=== PATIENT | female | born 1965 | race Caucasian/White ===

== ENCOUNTER → 2020-06-21 08:41 | Outpatient (BNVA) | payer OTHER, SELFPAY | PROVIDERS: Visit Provider Internal Medicine Endocrinology, Diabetes & Metabolism | DX: E66.01 Morbid (severe) obesity due to excess calories (principal); Z68.39 Body mass index [BMI] 39.0-39.9, adult; E65 Localized adiposity | CPT/HCPCS: 99214 ==

== ENCOUNTER 2020-06-28 10:49 | Outpatient (REF) | payer OTHER, SELFPAY ==
--- NOTE | 2020-06-28 11:00 | XR_ITS ---
EXAMINATION: RIGHT WRIST CLINICAL INFORMATION: Right wrist pain COMPARISON: None TECHNIQUE: 4 views right wrist FINDINGS: No bone joint or soft tissue abnormality is seen XR/XR wrist RT w scaphoid IMPRESSION: Negative study
== END 2020-06-28 10:50 | disposition home or self-care (01) ==
LOC: HO.XRAY 10:49
PROVIDERS: PCP Internal Medicine; Visit Provider Internal Medicine
DX: M25.531 Pain in right wrist (principal)
CPT/HCPCS: 73110

== ENCOUNTER 2020-08-23 09:55 | Outpatient (REF) | payer OTHER, SELFPAY ==
[2020-08-26 08:43] LABS: HPV mRNA E6/E7 rflx Not Detected (Not Detected)
== END 2020-08-23 09:56 | disposition home or self-care (01) ==
LOC: HO.LAB 09:55
PROVIDERS: PCP Internal Medicine; Referring Provider Internal Medicine; Visit Provider Obstetrics & Gynecology
DX: Z01.419 Encounter for gynecological examination (general) (routine) without abnormal findings (principal); N95.9 Unspecified menopausal and perimenopausal disorder
CPT/HCPCS: 87624; 87625; 88142

== ENCOUNTER 2020-11-21 09:07 | Outpatient (REF) | payer OTHER, SELFPAY ==
[2020-11-21 09:53] LABS: MANUAL DIFF FLAG NO
[2020-11-21 09:56] LABS: Basophils Percent Auto 0.2 % (0-2); Eosinophils Absolute Auto 0.3 X10*3/uL (0.0-0.4); Eosinophils Percent Auto 2.6 % (0-4); Hematocrit 37.1 % (37-47); Hemoglobin 11.5 g/dl (12.0-16.0); Imm Gran Abs Auto 0.05 X10*3/uL (0.00-0.03); Imm Gran Pct Auto 0.4 % (0.0-0.4); Lymphocytes Absolute Auto 3.2 X10*3/uL (1.2-4.9); Lymphocytes Percent Auto 24.8 % (20-40); Mean Corpuscular Hemoglobin 27.4 pg (27.0-33.0); Mean Corpuscular Volume 88.5 fL (80-98); Mean Platelet Volume 9.2 fL (9.4-12.3); Monocytes Absolute Auto 0.7 X10*3/uL (0.1-1.2); Monocytes Percent Auto 5.3 % (2-11); Neutrophils Absolute Auto 8.6 X10*3/uL (2.0-8.3); Neutrophils Percent Auto 66.7 % (45-73); Platelet Count 459 X10*3/uL (160-400); Red Blood Count 4.19 X10*6/uL (4.20-5.50); Red Cell Distribution Width 14.8 % (11.0-16.0); White Blood Count 12.9 X10*3/uL (4.8-10.8)
[2020-11-21 10:16] LABS: Lithium 0.65 mmol/L (0.60-1.20)
[2020-11-21 10:24] LABS: Alanine Aminotransferase 25 U/L (0-31); Albumin Level 4.2 g/dL (3.5-5.0); Alkaline Phosphatase 105 U/L (39-117); Anion Gap 14 (12-20); Aspartate Amino Transferase 21 U/L (5-31); Bilirubin Total 0.3 mg/dL (0.0-1.0); Blood Urea Nitrogen 11 mg/dL (9-16); Calcium 9.4 mg/dL (8.4-10.2); Carbon Dioxide 27 mmol/L (22-29); Chloride 104 mmol/L (96-108); Cholesterol 193 mg/dL; Estimated Glomerular Filt Rate > 60; Glucose Fasting 138 mg/dL (60-99); HDL Cholesterol 49 mg/dL; LDL Cholesterol Calculated 113 mg/dl; Potassium 4.6 mmol/L (3.3-5.1); Sodium 140 mmol/L (135-145); Total Protein 7.2 g/dL (6.5-8.0); Triglycerides 158 mg/dL
[2020-11-21 10:43] LABS: TSH reflex Free T4 2.06 uIU/mL (0.32-4.0)
[2020-11-22 16:46] LABS: Adrenocorticotropic Hormone 20 pg/mL (6-50)
[2020-11-30 22:18] LABS: Dexamethasone <20 ng/dL
== END 2020-11-21 09:08 | disposition home or self-care (01) ==
LOC: HO.LAB 09:07
PROVIDERS: Absent Provider Internal Medicine Endocrinology, Diabetes & Metabolism; PCP Internal Medicine; Visit Provider Internal Medicine
DX: E78.5 Hyperlipidemia, unspecified (principal); R73.02 Impaired glucose tolerance (oral); E66.01 Morbid (severe) obesity due to excess calories; E03.9 Hypothyroidism, unspecified; D64.9 Anemia, unspecified; E66.9 Obesity, unspecified; F31.9 Bipolar disorder, unspecified
CPT/HCPCS: 36415; 80053; 80061; 80178; 80299; 82024; 84443; 85025

== ENCOUNTER 2020-12-02 09:53 | Outpatient (REF) | payer OTHER, SELFPAY ==
[2020-12-07 02:31] LABS: HPV mRNA E6/E7 rflx Not Detected (Not Detected)
== END 2020-12-02 09:54 | disposition home or self-care (01) ==
LOC: HO.LAB 09:53
PROVIDERS: PCP Internal Medicine; Visit Provider Obstetrics & Gynecology
DX: R87.615 Unsatisfactory cytologic smear of cervix (principal)
CPT/HCPCS: 87624; 88142; 99212

== ENCOUNTER 2020-12-14 08:17 | Outpatient (REF) | payer OTHER, SELFPAY ==
[2020-12-14 11:03] LABS: Creatinine, mg/dL 23.39
[2020-12-14 13:20] LABS: Creatinine, 24Hr Urine 1.1 G/Day (1.0-2.0); Total Volume 24 Hour Urine 4775 mL
[2020-12-15 15:37] LABS: Adrenocorticotropic Hormone 6 pg/mL (6-50)
[2020-12-20 10:32] LABS: Cortisol Free, 24 Hr Urine 4.8 mcg/24 h (4.0-50.0); Creatinine, 24 Hr Urine 1.21 g/24 h (0.50-2.15); Total Volume, 24 Hr Urine 4775 mL
[2020-12-21 12:07] LABS: Dexamethasone 346 ng/dL
== END 2020-12-14 08:18 | disposition home or self-care (01) ==
LOC: HO.LAB 08:17
PROVIDERS: PCP Internal Medicine; Visit Provider Internal Medicine Endocrinology, Diabetes & Metabolism
DX: E65 Localized adiposity (principal); E66.01 Morbid (severe) obesity due to excess calories
CPT/HCPCS: 36415; 80299; 82024; 82530; 82533; 82570

== ENCOUNTER 2020-12-18 23:00 | Outpatient (REF) | payer OTHER, SELFPAY ==
[2020-12-23 18:57] LABS: Saliva Cortisol 0.12 mcg/dL
== END 2020-12-18 23:01 | disposition home or self-care (01) ==
LOC: HO.LNP 23:00
PROVIDERS: Visit Provider Internal Medicine Endocrinology, Diabetes & Metabolism
DX: E66.01 Morbid (severe) obesity due to excess calories (principal)
CPT/HCPCS: 82530

== ENCOUNTER → 2020-12-21 09:33 | Outpatient (BNVA) | payer OTHER, SELFPAY | PROVIDERS: PCP Internal Medicine; Visit Provider Internal Medicine Endocrinology, Diabetes & Metabolism | DX: E66.01 Morbid (severe) obesity due to excess calories (principal); E65 Localized adiposity | CPT/HCPCS: 99212 ==

== ENCOUNTER 2021-01-10 23:00 | Outpatient (REF) | payer OTHER, SELFPAY ==
[2021-01-18 15:51] LABS: Saliva Cortisol 0.07 mcg/dL
== END 2021-01-10 23:01 | disposition home or self-care (01) ==
LOC: HO.LNP 23:00
PROVIDERS: Visit Provider Internal Medicine Endocrinology, Diabetes & Metabolism
DX: E65 Localized adiposity (principal)
CPT/HCPCS: 82530

== ENCOUNTER 2021-01-19 09:09 | Outpatient (REF) | payer OTHER, SELFPAY ==
[2021-01-19 09:45] LABS: Glucose Urine UA NEG (NEG); Leukocyte Esterase Urine NEG (NEG); Nitrite Urine NEG (NEG); Urine Blood NEG (NEG); Urine Ketones NEG (NEG); Urine Protein NEG (NEG-TRACE)
[2021-01-19 09:48] LABS: Appearance Urine HAZY; Color Urine YELLOW
[2021-01-19 10:05] LABS: Blood Urea Nitrogen 14 mg/dL (9-16); Estimated Glomerular Filt Rate > 60
[2021-01-19 10:09] LABS: RBC Urine 0 /HPF (0); Squamous Epithelial Cell Urine 2+ /LPF; WBC Urine 0-2 /HPF (0-4)
== END 2021-01-19 09:10 | disposition home or self-care (01) ==
LOC: HO.LAB 09:09
PROVIDERS: PCP Internal Medicine; Visit Provider Internal Medicine
DX: F31.9 Bipolar disorder, unspecified (principal)
CPT/HCPCS: 36415; 81001; 82565; 84520

== ENCOUNTER → 2021-01-24 12:19 | Outpatient (BNVA) | payer OTHER, SELFPAY | PROVIDERS: PCP Internal Medicine; Visit Provider Dietitian, Registered | DX: E66.9 Obesity, unspecified (principal); Z68.37 Body mass index [BMI] 37.0-37.9, adult | CPT/HCPCS: 97802 ==

== ENCOUNTER → 2021-06-06 14:39 | Outpatient (BNVA) | payer OTHER, SELFPAY | PROVIDERS: PCP Internal Medicine; Referring Provider Internal Medicine; Visit Provider Surgery | DX: L73.2 Hidradenitis suppurativa (principal) | CPT/HCPCS: 99212 ==

== ENCOUNTER 2021-06-30 08:49 | Outpatient (REF) | payer OTHER, SELFPAY | END 2021-06-30 08:50 | disposition home or self-care (01) | LOC: HO.LNP 08:49 | PROVIDERS: PCP Internal Medicine; Referring Provider Internal Medicine; Visit Provider Surgery | DX: L02.91 Cutaneous abscess, unspecified (principal); L73.2 Hidradenitis suppurativa | CPT/HCPCS: 10061; 10060; 87071; 87205; 99212 ==

== ENCOUNTER → 2021-07-07 10:04 | Outpatient (BNVA) | payer OTHER, SELFPAY | PROVIDERS: PCP Internal Medicine; Referring Provider Internal Medicine; Visit Provider Surgery | DX: L02.91 Cutaneous abscess, unspecified (principal) | CPT/HCPCS: 99212 ==

== ENCOUNTER 2021-07-13 10:34 | Outpatient (REF) | payer OTHER, SELFPAY ==
[2021-07-13 10:53] LABS: MANUAL DIFF FLAG NO
[2021-07-13 11:42] LABS: Basophils Percent Auto 0.3 % (0-2); Eosinophils Absolute Auto 0.4 X10*3/uL (0.0-0.4); Eosinophils Percent Auto 3.2 % (0-4); Hematocrit 37.1 % (37.0-47.0); Hemoglobin 11.4 g/dl (12.0-16.0); Imm Gran Abs Auto 0.06 X10*3/uL (0.00-0.03); Imm Gran Pct Auto 0.5 % (0.0-0.4); Lymphocytes Absolute Auto 3.3 X10*3/uL (1.2-4.9); Lymphocytes Percent Auto 29.6 % (20-40); Mean Corpuscular HGB Conc 30.7 g/dl (31.0-35.0); Mean Corpuscular Hemoglobin 26.8 pg (27.0-33.0); Mean Corpuscular Volume 87.3 fL (80.0-98.0); Monocytes Absolute Auto 0.9 X10*3/uL (0.1-1.2); Monocytes Percent Auto 7.7 % (2-11); Neutrophils Absolute Auto 6.5 x10*3/uL (2.0-8.3); Neutrophils Percent Auto 58.7 % (45-73); Platelet Count 375 X10*3/uL (160-400); Red Blood Count 4.25 X10*6/uL (4.20-5.50); Red Cell Distribution Width 15.3 % (11.0-16.0); White Blood Count 11.1 X10*3/uL (4.8-10.8)
[2021-07-13 11:54] LABS: Lithium 0.58 mmol/L (0.60-1.20)
[2021-07-13 12:10] LABS: Alanine Aminotransferase 29 U/L (0-31); Albumin Level 4.1 g/dL (3.5-5.0); Alkaline Phosphatase 103 U/L (39-117); Anion Gap 10 (12-20); Aspartate Amino Transferase 19 U/L (5-31); Bilirubin Total 0.2 mg/dL (0.0-1.0); Blood Urea Nitrogen 7 mg/dL (9-16); Calcium 9.5 mg/dL (8.4-10.2); Carbon Dioxide 28 mmol/L (22-29); Chloride 106 mmol/L (96-108); Cholesterol 141 mg/dL; Estimated Glomerular Filt Rate > 60; Glucose Fasting 112 mg/dL (60-99); HDL Cholesterol 39 mg/dL; LDL Cholesterol Calculated 78 mg/dl; Potassium 4.5 mmol/L (3.3-5.1); Sodium 139 mmol/L (135-145); Total Protein 7.3 g/dL (6.5-8.0); Triglycerides 124 mg/dL
[2021-07-13 12:11] LABS: Thyroid Stimulating Hormone 2.98 uIU/mL (0.32-4.0)
== END 2021-07-13 10:35 | disposition home or self-care (01) ==
LOC: HO.LAB 10:34
PROVIDERS: PCP Internal Medicine; Visit Provider Internal Medicine
DX: E78.5 Hyperlipidemia, unspecified (principal); R73.02 Impaired glucose tolerance (oral); E03.9 Hypothyroidism, unspecified; D64.9 Anemia, unspecified; F31.9 Bipolar disorder, unspecified; Z79.899 Other long term (current) drug therapy
CPT/HCPCS: 36415; 80053; 80061; 80178; 84443; 85025

== ENCOUNTER 2021-11-30 09:41 | Outpatient (REF) | payer OTHER, SELFPAY ==
[2021-11-30 10:19] LABS: MANUAL DIFF FLAG NO
[2021-11-30 10:59] LABS: Basophils Percent Auto 0.3 % (0-2); Eosinophils Absolute Auto 0.3 X10*3/uL (0.0-0.4); Eosinophils Percent Auto 2.8 % (0-4); Hematocrit 39.1 % (37.0-47.0); Hemoglobin 12.1 g/dl (12.0-16.0); Imm Gran Abs Auto 0.04 X10*3/uL (0.00-0.03); Imm Gran Pct Auto 0.3 % (0.0-0.4); Lymphocytes Absolute Auto 3.1 X10*3/uL (1.2-4.9); Lymphocytes Percent Auto 25.5 % (20-40); Mean Corpuscular HGB Conc 30.9 g/dl (31.0-35.0); Mean Corpuscular Hemoglobin 27.3 pg (27.0-33.0); Mean Corpuscular Volume 88.3 fL (80.0-98.0); Mean Platelet Volume 9.9 fL (9.4-12.3); Monocytes Absolute Auto 0.7 X10*3/uL (0.1-1.2); Monocytes Percent Auto 5.5 % (2-11); Neutrophils Absolute Auto 7.9 x10*3/uL (2.0-8.3); Neutrophils Percent Auto 65.6 % (45-73); Platelet Count 508 X10*3/uL (160-400); Red Blood Count 4.43 X10*6/uL (4.20-5.50); Red Cell Distribution Width 15.9 % (11.0-16.0); White Blood Count 12.1 X10*3/uL (4.8-10.8)
[2021-11-30 11:53] LABS: Alanine Aminotransferase 18 U/L (0-31); Albumin Level 4.4 g/dL (3.5-5.0); Alkaline Phosphatase 96 U/L (39-117); Anion Gap 14 (12-20); Aspartate Amino Transferase 13 U/L (5-31); Bilirubin Total 0.5 mg/dL (0.0-1.0); Blood Urea Nitrogen 13 mg/dL (9-16); Calcium 10.4 mg/dL (8.4-10.2); Carbon Dioxide 28 mmol/L (22-29); Chloride 105 mmol/L (96-108); Cholesterol 207 mg/dL; Estimated Glomerular Filt Rate > 60; Glucose Fasting 128 mg/dL (60-99); HDL Cholesterol 48 mg/dL; Iron 70 mcg/dL (30-160); LDL Cholesterol Calculated 131 mg/dl; Percent Iron Saturation 16 % (15-50); Potassium 4.8 mmol/L (3.3-5.1); Sodium 142 mmol/L (135-145); Total Iron Binding Capacity 437 mcg/dL (228-428); Total Protein 7.8 g/dL (6.5-8.0); Triglycerides 144 mg/dL; Unsaturated Iron Binding 367 ug/dL
[2021-12-01 19:06] LABS: DHEA Sulfate 68 mcg/dL (5-167)
[2021-12-05 14:17] LABS: Vitamin D 25-OH, D2 <4 ng/mL; Vitamin D 25-OH, D3 17 ng/mL; Vitamin D 25-OH, Total 17 ng/mL (30-100)
[2021-12-06 11:31] LABS: Dexamethasone <20 ng/dL
[2021-12-06 11:56] LABS: Testosterone, Free 1.3 pg/mL (0.1-6.4); Testosterone, Total 10 ng/dL (2-45)
== END 2021-11-30 09:42 | disposition home or self-care (01) ==
LOC: HO.LAB 09:41
PROVIDERS: Internal Medicine Endocrinology, Diabetes & Metabolism; Absent Provider Internal Medicine; PCP Internal Medicine; Visit Provider Nurse Practitioner Family
DX: E66.9 Obesity, unspecified (principal); E78.5 Hyperlipidemia, unspecified; E03.9 Hypothyroidism, unspecified; E65 Localized adiposity; L65.9 Nonscarring hair loss, unspecified
CPT/HCPCS: 36415; 80053; 80061; 80299; 82306; 82627; 83540; 84402; 84403; 84443; 85025

== ENCOUNTER → 2022-01-12 09:19 | Outpatient (BNVA) | payer OTHER, SELFPAY | PROVIDERS: PCP Internal Medicine; Referring Provider Internal Medicine; Visit Provider Surgery | DX: L02.91 Cutaneous abscess, unspecified (principal); L73.2 Hidradenitis suppurativa | CPT/HCPCS: 10061; 99212 ==

== ENCOUNTER → 2022-01-19 08:56 | Outpatient (BNVA) | payer OTHER, SELFPAY | PROVIDERS: PCP Nurse Practitioner Family; Visit Provider Surgery | DX: Z48.817 Encounter for surgical aftercare following surgery on the skin and subcutaneous tissue (principal); Z87.2 Personal history of diseases of the skin and subcutaneous tissue | CPT/HCPCS: 99212 ==

== ENCOUNTER → 2022-08-29 14:12 | Outpatient (BNVA) | payer OTHER, SELFPAY | PROVIDERS: Visit Provider Advanced Practice Midwife | DX: Z13.89 Encounter for screening for other disorder (principal) ==

== ENCOUNTER 2023-12-04 17:29 | Inpatient (IN) | payer OTHER, SELFPAY ==
--- NOTE | ~2023-12-04 | XR_ITS ---
EXAMINATION: XR CHEST CLINICAL INFORMATION: Upper respiratory tract symptoms COMPARISON: Previous chest x-ray December 2019 TECHNIQUE: Frontal view of the chest was obtained. FINDINGS: The cardiac and mediastinal contours are stable. The lungs are clear. No pleural effusion or pneumothorax. Degenerative changes of the spine. XR/XR chest 1V IMPRESSION: No evidence for acute disease in the chest.
--- OUTSIDE RECORDS SUMMARY | 2023-12-04 17:32 | XMS_ITS | Continuity of Care Document ---
Author Name Unknown Organization [facility] Address [address] [place] [address]- Care Team Providers Care [employer] Name Role Phone Megan HOTBED TRANSFER OPERATOR, Sj Monroe Primary Care Physi mago Encounter [facility] [place] Date(s): 10/13/22 - 02/10/23 [facility] [address] [address] Attending Physician: Mary Perez MD Admitting Physician: Mary Perez MD Allergies, Adverse Reactions, Alerts Substance Reaction Severity Status amoxicillin unknown Persistent Moderate Active azithromycin Active hydrOXYzine Active Haldol drooling tonhue swel ling ? NMS with inc cpk Active Vitamin D3 50k dose Active Seroquel XR Vitamin D allergy Vitamin D allergy Active sulfamethoxazole-trimethoprim rash Active clonazepam RASH Active levofloxacin lip swelling Active Effexor RASH clonazepam RASH Active doxycycline hyclate Active Abilify NMS Active barb rash Persistent Moderate Active Immunizations Given and Recorded Vaccine Date Status Refusal Reason influenza virus vaccine, inactivated 07/14/13 Give n Pneumovax 23 (oldterm) 10/09/12 Given Tet/Diphth/Acel, Pertussis (oldterm) 2 09/03/08 Gi isai Not Given Vaccine Date Status Refusal Reason influenza virus vaccine, inactivated 1 06/16/15 No t Given Patient Refuses pneumococcal 23-valent vaccine 3 06/16/15 Not Give n Patient Refuses 1Admin Note: vis given 2Result Note: glucose 104 3Result Note: glucose 104 Medications amLODIPine 5 mg oral tablet 5 mg, 1, tablet, By Mouth, Daily, # 30 tablet, Refills 0, Maintenance, 05/04/22 8:39:00 EDT, Partial fill upon patient request if the prescription is for a schedule II opioid drug. Start Date: 05/04/22 Status: Ordered Ativan 2 mg oral tablet 1 tablet = 2 mg, By Mouth, 2 times a day, 0 Refills, Maintenance, 09/14/21 22:39:00 EST, Tablet, Partial fill upon patient request if the prescription is for a schedule II opioid drug. Start Date: 09/14/21 Status: Ordered Banophen 50 mg oral capsule 1 capsule = 50 mg, By Mouth, Every 6 hours, 0 Refills, Maintenance, 05/04/22 8:39:00 EDT, Partial fill upon patient request if the prescription is for a schedule II opioid drug. Start Date: 05/04/22 Status: Ordered benzonatate 200 mg oral capsule 1 capsule = 200 mg, By Mouth, 3 times a day, PRN Cough, # 30 capsule, 1 Refills, Maintenance, 09/17/21 16:10:00 EST, Capsule, [id number], Partial fill upon patient request if the prescription is for a schedule II opioid drug., 155, cm... Start Date: 09/17/21 Status: Ordered carvedilol 3.125 mg oral tablet 3.125 mg, 1, tablet, By Mouth, 2 times a day, # 60 tablet, Refills 0, Maintenance, 05/04/22 8:38:00EDT, Partial fill upon patient request if the prescription is for a schedule II opioid drug. Start Date: 05/04/22 Status: Ordered gabapentin 100 mg oral capsule 100 mg, 1, capsule, By Mouth, Daily at bedtime, # 90 capsule, Refills 5, Maintenance, 09/17/21 16:11:00 EST, Partial fill upon patient request if the prescription is for a schedule II opioid drug. Start Date: 09/17/21 Status: Ordered levothyroxine 0.088 mg oral tablet 1 tablet = 88 mcg, By Mouth, Daily, replaces 112mcg dose!, # 30 tablet, 11 Refills, Maintenance, 02/06/16 11:11:15 Start Date: 02/06/16 Status: Ordered lithium 300 mg oral capsule = 450 mg, By Mouth, 2 times a day, 0 Refills, Maintenance, 05/10/15 13:10:22 EDT Start Date: 05/10/15 Status: Ordered lithium 300 mg oral capsule 1 capsule = 300 mg, By Mouth, 2 times a day, 0 Refills, Maintenance, 09/17/21 16:11:00 EST, Capsule, Partial fill upon patient request if the prescription is for a schedule II opioid drug. Start Date: 09/17/21 Status: Ordered LORazepam 2 mg oral tablet TAKE 1 TABLET BY MOUTH TWICE DAILY NEEDED. DO NOT DISPENSE BEFORE THE DUE DATE Start Date: 09/17/21 Status: Ordered metFORMIN 500 mg oral tablet 1 tablet = 500 mg, By Mouth, 2 times a day, # 180 tablet, 0 Refills, Maintenance, 05/04/22 8:34:00 EDT, Tablet, Partial fill upon patient request if the prescription is for a schedule II opioid drug. Start Date: 05/04/22 Status: Ordered mirtazapine 7.5 mg oral tablet TAKE 1 TABLET BY MOUTH AT BEDTIME Start Date: 09/17/21 Status: Ordered Protonix 40 mg oral delayed release tablet 1 tablet = 40 mg, By Mouth, Daily, # 30 tablet, 0 Refills, Maintenance, 09/17/21 16:30:00 EST, EC Tablet, 155, cm, 09/17/21 7:48:00 EST, Height, 84.5, kg, 09/15/21 2:58:00 EST, Dry Weight Start Date: 09/17/21 Status: Ordered Senna 8.6 mg oral tablet 8.6 mg, 1, tablet, By Mouth, Daily at bedtime, Refills 0, Maintenance, 05/04/22 8:39:00 EDT, Partial fill upon patient request if the prescription is for a schedule II opioid drug. Start Date: 05/04/22 Status: Ordered zolpidem 10 mg oral tablet TAKE 1 TABLET BY MOUTH AT BEDTIME Start Date: 01/17/23 Status: Ordered Problem List Condition Confirmation Course Effective Dates Status Health Status Informant Acne vulgaris Confirmed Active Adult-onset obesity, Metabolic Syndrome 1 Confirmed Active Bipolar affective disorder, currently manic, severe, with psychosis Confirmed Active Chronic back pain Confirmed Active Depression, Major, w/ catatonia during exac, ongoing ECT tx's Confirmed Active Diabetes mellitus Confirmed Active Hypertension Confirmed Active Hypothyroidism Confirmed Active Insomnia due to mental disorder Confirmed Active Iron deficiency anemia Confirmed Active Malignant neuroleptic syndrome, On abilify and haldol in 02/01/06 to 04/19/06 Confirmed Active Multiple skin tags Confirmed 06/27/10 Active Neuropathy R>L, s/p EMG at [facility], s/p steroid injection Confirmed Active Obesity Confirmed Active [facility] Electric Organ Assembler Lisbet Serrano [facility] [phone] Confirmed Active Psychophysiologic insomnia Confirmed Active Severe obesity (BMI 35.0-39.9) with comorbidity Confirmed Active Snoring Confirmed Active Thrombocytosis s/p eval by Dr. Silva, observation Confirmed Active 1+ Hx of Gestational Diabetes and strong Family Hx. Social History Social History Type Response Smoking Status Never smoker; Tobacc o user in household: No entered on: 04/22/18 Sex Patient Care team information Care Team Personnel Name: Trinh Rivera RN Position: [facility] AMB Nurse Member Role: Primary Care Nurse Name: Nita Leigh RN Position: [facility] OB RN Member Role: Primary Care Nurse Name: Janie Pandya RN Position: [facility] RN Member Role: Primary Care Nurse Name: Sj Guzman NP Position: Reference Physician Member Role: PCP Address: Address: [address] [place] [place] [address]- Care Team Related Persons Name: CURTIS ALFRED Address: home [address] [place] [id number] Name: SARTHAK ALFRED Address: home [address] [place] [address]
--- OUTSIDE RECORDS SUMMARY | 2023-12-04 17:32 | XMS_ITS | Continuity of Care Document ---
Author Name Unknown Organization [facility] Address [address] [place] [address]- Care Team Providers Care Chrome Worker Name Role Phone Jeff James MD, Yolande Primary Care Physician Encounter [facility] Date(s): 09/14/21 - 10/14/21 [facility] [address], [place] [address] Attending Physician: Ivanna Plata MD Allergies, Adverse Reactions, Alerts Substance Reaction Severity Status amoxicillin unknown Persistent Moderate Active Haldol drooling tonhue swel ling ? NMS with inc cpk Active barb rash Persistent Moderate Active azithromycin Active Seroquel XR Vitamin D allergy Vitamin D allergy Active sulfamethoxazole-trimethoprim rash Active clonazepam RASH Active hydrOXYzine Active levofloxacin lip swelling Active Effexor RASH clonazepam RASH Active doxycycline hyclate Active Abilify NMS Active Vitamin D3 50k dose Active Immunizations Given and Recorded Vaccine Date [...] glucose 104 3Result Note: glucose 104 Medications Ativan 2 mg oral tablet 1 tablet = 2 mg, By Mouth, 2 times a day, 0 Refills, Maintenance, 09/14/21 22:39:00 EST, Tablet, Partial fill upon patient request if the prescription is for a schedule II opioid drug. Start Date: 09/14/21 Status: Ordered benzonatate 200 mg oral capsule 1 capsule = 200 mg, By Mouth, 3 times a day, PRN Cough, # 30 capsule, 1 Refills, Maintenance, 09/17/21 16:10:00 EST, Capsule, [facility] #[id number], Partial fill upon patient request if the prescription is for a schedule II opioid drug., 155, cm... Start Date: 09/17/21 Status: Ordered gabapentin 100 mg oral capsule [...] DUE DATE Start Date: 09/17/21 Status: Ordered mirtazapine 7.5 mg oral tablet TAKE 1 TABLET BY MOUTH AT BEDTIME Start Date: 09/17/21 Status: Ordered Protonix 40 mg oral delayed release tablet 1 tablet = 40 mg, By Mouth, Daily, # 30 tablet, 0 Refills, Maintenance, 09/17/21 16:30:00 EST, EC Tablet, 155, cm, 09/17/21 7:48:00 EST, Height, 84.5, kg, 09/15/21 2:58:00 EST, Dry Weight Start Date: 09/17/21 Status: Ordered Problem List Condition Effective Dates Status Health Status Inform ant Acne vulgaris(Confirmed) Active Adult-onset obesity, Metabol ic Syndrome(Confirmed) 1 Active Bipolar affective disorder, currently manic, severe, with psychosis(Confirmed) Active Chronic back pain(Confirmed) Active Depression, Major, w/ catato juan francisco during ex[facility], ongoing ECT tx's(Confirmed) Active Diabetes mellitus(Confirmed) Active Hypertension(Confirmed) Active Hypothyroidism(Confirmed) Active Iron deficiency anemia(Confirmed) Active Malignant neuroleptic syndro me, On abilify and haldol in 02/01/06 to 04/19/06(Confirmed) Active Multiple skin tags(Confirmed) 06/27/10 Active Neuropathy R>L, [facility], s/p steroid injection(Confirmed) Active Obese class II(Confirmed) Active Obesity(Confirmed) Active [facility] 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 Social History Social History Type Response Smoking Status Never smoker; Tobacc o user in household: No entered on: 04/22/18 Sex
--- OUTSIDE RECORDS SUMMARY | 2023-12-04 17:33 | XMS_ITS | Continuity of Care Document ---
Author Name Unknown Organization [facility] ter Address [address] [place] [address]- Care Team Providers Care [facility] Name Role Phone Jeff James MD, Daylin Aguilera Primary Care Physician [phone] Encounter [facility] Date(s): 09/14/21 - 09/17/[address] [address]- Encounter Diagnosis COVID-19(Final) - 09/14/21 Discharge Disposition: A-D/C Home Attending Physician: Tim George MD Admitting Physician: Yadiel Douglas MD Referring Physician: Not on Staff, Referring MD Allergies, Adverse Reactions, Alerts Substance Reaction Severity Status amoxicillin unknown Persistent Moderate Active levofloxacin lip swelling Active barb rash Persistent Moderate Active azithromycin Active Seroquel XR Vitamin D allergy Vitamin D allergy Active sulfamethoxazole-trimethoprim rash Active clonazepam RASH Active hydrOXYzine Active Haldol drooling tonhue swel ling ? NMS with inc cpk Active Effexor RASH clonazepam RASH Active doxycycline [...] 1 Refills, Maintenance, 09/17/21 16:10:00 EST, Capsule, [facility] #[id number], Partial fill upon patient request if the prescription is for a schedule II opioid drug., 155, cm... Start Date: 09/17/21 Status: Ordered dexamethasone 6 mg oral tablet 1 tablet = 6 mg, By Mouth, Daily, for 7 days, # 7 tablet, 0 Refills, Acute 09/24/21 16:10:00 EST, 09/17/21 16:10:00 EST, Tablet, [facility] #[id number], Partial fill upon patient request if the prescription is for a schedule II opioid drug., 155,... 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 Results Radiology Reports * Exam Date Time Procedure Performing Provider Status 09/14/21 5:57 PM Chest Portable Trey Ocampo (Verified) Notes: (Chest Portable) Reason For Exam: Chest Pain;Other: RESULT: Chest Portable Chest Portable Reason: Other:; Chest Pain; Clinical Question(s): Other: COMPARISON: 06/14/2015 FINDINGS: LINES AND TUBES: None. LUNGS AND PLEURA: Low lung volumes with mild basilar atelectasis. Central vascular markings are prominent, accentuated by low lung volumes. No pleural effusion. No pneumothorax. HEART, MEDIASTINUM AND CORNELIO: Heart is normal in size. Normal upper mediastinal and hilar contour. BONES AND SOFT TISSUES: No acute abnormality. IMPRESSION: Low lung volumes and bibasilar opacity. Opacity may be due to pneumonia and/or atelectasis. Centralvascular markings are also prominent which may be due to vascular congestion. WSN: [id number] Ordering Physician: Elisa Mcmanus Dictated By: Carmelo Contreras MD Dictated Date/Time: 09/14/21 6:19 pm Reviewed By: Carmelo Contreras MD Signed By: Carmelo Contreras MD Signed Date/Time: 09/14/21 6:19 pm Transcribed By: GEOFF Transcribed Date/Time: 09/14/21 6:19 pm Vital Signs Most recent to oldest [Reference Range]: 1 2 3 Height 155 cm (09/17/21 5:01 PM) 155 cm (09/17/21 7:48 AM) 155 cm (09/17/21 4:01 AM) Weight 84.5 kg (09/15/21 12:20 AM) 84.5 kg (09/14/21 11:48 PM) Oxygen Saturation [94-100 %] 99 % (09/17/21 5:01 PM) 92 % *L* (09/17/21 7:48 AM) 96 % (09/17/21 4:01 AM) Pulse Rate [55-90 bpm] 66 bpm (09/17/21 5:01 PM) 59 bpm (09/17/21 7:48 AM) 54 bpm *L* (09/17/21 4:01 AM) Body Mass Index [18.5-24.99] 35.17 *>HHI* (09/15/21 12:20 AM) Blood Pressure [90-138/55-84 mm Hg] 125/80mm Hg (09/17/21 5:01 PM) 113/60mm Hg (09/17/21 7:48 AM) 136/85mm Hg (09/17/21 4:01 AM) Respiratory Rate [16-30 br/min] 20 br/min (09/17/21 5:01 PM) 19 br/min (09/17/21 7:48 AM) 20 br/min (09/17/21 4:01 AM) Temperature [96.8-100.4 DegF] 97.3 DegF (09/17/21 5:01 PM) 97.5 DegF (09/17/21 7:48 AM) 97.4 DegF (09/17/21 4:01 AM) Liters per Minute 2 L/min (09/17/21 4:01 AM) 2 L/min (09/16/21 12:45 PM) 3 L/min (09/16/21 12:40 PM) Mode of Delivery (Oxygen) Room air (09/17/21 5:01 PM) Room air (09/17/21 7:48 AM) Nasal cannula (09/17/21 4:01 AM) Blood pressure sites Arm, left (09/17/21 4:01 AM) Arm, left (09/16/21 8:43 PM) Arm, left (09/16/21 2:57 PM) Temperature Route Oral (09/17/21 5:01 PM) Oral (09/17/21 7:48 AM) Oral (09/17/21 4:01 AM) Dry Weight 84.5 kg (09/15/21 12:20 AM) Weight Obtained Via Bed scale (09/15/21 12:20 AM) Bed scale (09/14/21 11:48 PM) Dry Weight Obtained Via Bed scale (09/15/21 12:20 AM) Social History Social History Type Response Smoking Status Never smoker; Tobacc o user in household: No entered on: 04/22/18 Sex
--- OUTSIDE RECORDS SUMMARY | 2023-12-04 17:33 | XMS_ITS | Continuity of Care Document ---
Author Name Unknown Organization [facility] Address [address] [place] [address]- Care Team Providers Care Coke Oven Mason Name Role Phone Megan BARRIGA, Sj Monroe Primary Care Physi mago Encounter [facility] Date(s): 06/22/22 - 10/20/[address] [address] Attending Physician: Mary Perez MD Admitting Physician: Mary Perez MD Referring Physician: Sj Guzman NP Allergies, Adverse Reactions, Alerts Substance Reaction Severity Status amoxicillin unknown Persistent Moderate Active Vitamin D3 50k dose Active barb rash Persistent Moderate Active azithromycin Active Seroquel XR Vitamin D allergy Vitamin D allergy Active sulfamethoxazole-trimethoprim rash Active clonazepam RASH Active hydrOXYzine Active levofloxacin lip swelling Active Haldol drooling tonhue swel ling ? NMS with inc cpk Active Effexor RASH clonazepam RASH Active doxycycline hyclate Active Abilify NMS Active Immunizations Given and Recorded Vaccine Date [...] 1 Refills, Maintenance, 09/17/21 16:10:00 EST, Capsule, [facility] #[id number], Partial fill upon patient request if the [...] opioid drug. Start Date: 05/04/22 Status: Ordered Problem List Condition Confirmation Course [...] 06/27/10 Active Neuropathy R>L, s/p EMG at [facility], s/p steroid injection Confirmed Active Obese class II Confirmed Active Obesity Confirmed Active [employer] Guide Lisbet Serrano [facility] [phone] Confirmed Active Psychophysiologic insomnia Confirmed Active Snoring Confirmed Active Thrombocytosis s/p eval by Dr. Silva, observation Confirmed Active 1+ Hx of Gestational Diabetes and strong Family Hx. Social History Social History Type Response Smoking Status Never smoker; Tobacc o user in household: No entered on: 04/22/18 Sex Patient Care team information Care Team Personnel Name: Nicole RN, Trinh Position: [facility] AMB Nurse Member Role: Primary Care Nurse Name: Nita Leigh RN Position: [facility] OB RN Member Role: Primary Care Nurse Name: Janie Pnadya RN Position: [facility] RN Member Role: Primary Care Nurse Name: Sj Guzman NP Position: Reference Physician Member Role: PCP Address: Address: [address] [place] [address]- Care Team Related Persons Name: CURTIS ALFRED Address: home [address] [place] [address] Name: SARTHAK ALFRED Address: home [address] [place] [address]
--- OUTSIDE RECORDS SUMMARY | 2023-12-04 17:33 | XMS_ITS | Continuity of Care Document ---
Author Name Unknown Organization [facility] ter Address [address] [place] [address]- Care Team Providers Care Bulk Coolers Installer Name Role Phone Not on Staff, PCP Primary Care Physician Unavail able Encounter [facility] Date(s): 09/10/19 - 09/17/[address] [address]- [facility] Attending Physician: Taryn Gallardo MD Allergies, Adverse Reactions, Alerts Substance Reaction Severity Status amoxicillin unknown Persistent Moderate Active azithromycin Active sulfamethoxazole-trimethoprim rash Active clonazepam RASH Active hydrOXYzine Active levofloxacin lip swelling Active Haldol drooling tonhue swel ling ? NMS with inc cpk Active Effexor RASH clonazepam RASH Active doxycycline hyclate Active Abilify NMS Active Vitamin D3 50k dose Active barb rash Persistent Moderate Active Seroquel XR Vitamin D allergy Vitamin D allergy Active Immunizations Given and Recorded Vaccine Date [...] glucose 104 3Result Note: glucose 104 Medications doxycycline monohydrate By Mouth, Maintenance, 03/08/17 13:40:20 Start Date: 03/08/17 Status: Ordered Freestyle Lite Lancets See Instructions, # 100 each, Refills 11, Tot. Refills 11, Maintenance, Check blood sugar BID, Type2 diabetes, not on insulin, 11/19/16 18:57:26, Compound Start Date: 11/19/16 Stop Date: 11/14/17 Status: Ordered Freestyle Lite Monitor See Instructions, # 1 each, Refills 0, Tot. Refills 0, Maintenance, Type 2 diabetes, 11/19/16 18:57:14, Compound Start Date: 11/19/16 Stop Date: 02/17/17 Status: Ordered Freestyle Lite Test Strips See Instructions, # 100 each, Refills 11, Tot. Refills 11, Maintenance, Check blood sugar BID, Type2 diabetes, not on insulin, 11/19/16 18:57:18, Compound Start Date: 11/19/16 Stop Date: 11/04/19 Status: Ordered Gauze Pad (2 X 2) See Instructions, # 1 box, Maintenance, USE TRAMAINE;Y FOR DRESSING CHANGE Dx- LEFT LTHIGH ABSCESS, 11/14/15 13:56:06, Compound Start Date: 11/14/15 Status: Ordered Gloves See Instructions, # 1 box, Maintenance, USE FOR DRESSING CHNAGE. dX: LEFT LTHIGH ABSCESS, 11/14/15 13:57:16, Compound Start Date: 11/14/15 Status: Ordered levothyroxine 0.088 mg oral tablet 1 tablet = 88 mcg, By Mouth, Daily, replaces 112mcg dose!, # 30 tablet, 11 Refills, Maintenance, 02/06/16 11:11:15 Start Date: 02/06/16 Status: Ordered lithium 150 mg oral capsule 1 capsule = 150 mg, By Mouth, Daily at bedtime, 0 Refills, Maintenance, 05/10/15 13:09:19 Start Date: 05/10/15 Status: Ordered lithium 300 mg oral capsule 1 capsule = 300 mg, By Mouth, Daily, 0 Refills, Maintenance, 05/10/15 13:10:22 Start Date: 05/10/15 Status: Ordered Lorazepam 0 Refills, Maintenance, 03/08/17 13:21:21 Start Date: 03/08/17 Status: Ordered MiraLax oral powder for reconstitution = 17 Gm, By Mouth, Daily, dissolve in water before taking, # 527 Gm, 11 Refills, Maintenance, 07/26/15 10:36:40, REC Powder, 17 Gm By Mouth Daily,Instr:dissolve in water before taking Start Date: 07/26/15 Status: Ordered traZODone 100 mg oral tablet 1.5 tablet = 150 mg, By Mouth, Daily at bedtime, 0 Refills, Maintenance, 05/13/15 10:11:03, Tablet Start Date: 05/13/15 Status: Ordered True Test Test Strips 11 Refills, USE TO TEST FINGER STICK BLOOD SUGAR THREE TIMES DAILY as instructed dx E11.9 Start Date: 02/06/16 Status: Ordered Trueplus Ultra Thin 30g Lancet 11 Refills, USE TO TEST FINGER STICK BLOOD SUGAR THREE TIMES DAILY as instructed dx E11.9 Start Date: 02/06/16 Status: Ordered Problem List Condition Effective Dates Status Health Status Inform ant Acne vulgaris(Confirmed) Active Adult-onset obesity, Metabol ic Syndrome(Confirmed) 1 Active Bipolar affective disorder, currently manic, severe, with psychosis(Confirmed) Active Chronic back pain(Confirmed) Active Depression, Major, w/ catato juan francisco during exac, ongoing ECT tx's(Confirmed) Active Diabetes mellitus(Confirmed) Active Hypertension(Confirmed) Active Hypothyroidism(Confirmed) Active Port catheter in place, left upper chest(Confirmed) Active Iron deficiency anemia(Confirmed) Active Malignant neuroleptic syndro me, On abilify and haldol in 02/01/06 to 04/19/06(Confirmed) Active Multiple skin tags(Confirmed) 06/27/10 Active Neuropathy R>L, [facility], s/p steroid injection(Confirmed) Active Obesity(Confirmed) Active [facility] 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 Social History Social History Type Response Smoking Status Never smoker; Tobacc o user in household: No entered on: 04/22/18 Sex
--- OUTSIDE RECORDS SUMMARY | 2023-12-04 17:33 | XMS_ITS | Continuity of Care Document ---
Author Name Unknown Organization [facility] Address [address] [place] [id number]- Care Team Providers Care Airplane Woodworker Name Role Phone Megan PRODUCE WRAPPER, Sj Monroe Primary Care Physi mago [place] [facility] [place] [facility] [place] - 10[place]19/22 [facility] [address] [id number] Allergies, Adverse Reactions, Alerts Substance Reaction Severity Status amoxicillin unknown Persistent Moderate Active Haldol drooling tonhue swel ling ? NMS with inc cpk Active doxycycline hyclate Active Abilify NMS Active Vitamin D3 50k dose Active barb rash Persistent Moderate Active azithromycin Active Seroquel XR Vitamin D allergy Vitamin D allergy Active sulfamethoxazole-trimethoprim rash Active clonazepam RASH Active hydrOXYzine Active levofloxacin lip swelling Active Effexor RASH clonazepam RASH Active Immunizations Given and Recorded Vaccine Date [...] 1 Refills, Maintenance, 09/17/21 16:10:00 EST, Capsule, [id number], Partial fill upon patient request if the [...] 06/27/10 Active Neuropathy R>L, s/p EMG at [facility], s/p steroid injection Confirmed Active Obese class II Confirmed Active Obesity Confirmed Active 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 Silva, observation Confirmed Active 1+ Hx of Gestational Diabetes and strong Family Hx. Social History Social History Type Response Smoking Status Never smoker; Tobacc o user in household: No entered on: 04/22/18 Sex Patient Care team information Care Team Personnel Name: Nicole MARTIN, Trinh Position: [facility] AMB Nurse Member Role: Primary Care Nurse Name: Nita Leigh RN Position: [facility] OB RN Member Role: Primary Care Nurse Name: Janie Pandya RN Position: [facility] RN Member Role: Primary Care Nurse Name: Megan BARRIGA, Sj Monroe Position: Reference Physician Member Role: PCP Address: Address: [address] [place] [address]- Care Team Related Persons Name: CURTIS ALFRED Address: home [address] [place] [id number] Name: SARTHAK ALFRED Address: home [address] [place] [address]
--- OUTSIDE RECORDS SUMMARY | 2023-12-04 17:33 | XMS_ITS | Continuity of Care Document ---
Author Name Unknown Organization [facility] Address [address] [place] [address]- Care Team Providers Care Freezing Machine Operator Name Role Phone Megan FIELD OPERATIONS FARM MANAGER, Sj Monroe Primary Care Physi mago [place] [facility] [place] - 04/27/22 [facility] [address] [place], [place] [address] Attending Physician: AdmChayo bueno Admitting Physician: Admtr, Chayo Referring Physician: Admtr, Ar8 Allergies, Adverse Reactions, Alerts Substance Reaction Severity Status amoxicillin unknown Persistent Moderate Active hydrOXYzine Active Effexor RASH clonazepam RASH Active azithromycin Active Seroquel XR Vitamin D allergy Vitamin D allergy Active sulfamethoxazole-trimethoprim rash Active clonazepam RASH Active levofloxacin lip swelling Active Haldol drooling tonhue swel ling ? NMS with inc cpk Active doxycycline hyclate Active Abilify NMS Active Vitamin D3 50k dose Active barb rash Persistent Moderate Active Immunizations [...] 1 Refills, Maintenance, 09/17/21 16:10:00 EST, Capsule, [id number], Partial fill upon patient request if the [...] Active Obese class II(Confirmed) Active Obesity(Confirmed) Active [facility] Certified Orthotist Lisbet Serrano [facility] [phone](Confirmed) Active Thrombocytosis s/p eval by Jagjit Silva, observation(Confirmed) Active 1+ Hx of Gestational Diabetes and strong Family Hx. Social History Social History Type Response Smoking Status Never smoker; Tobacc o user in household: No entered on: 04/22/18 Sex Care Team Personnel Name: Sj Guzman NP Address: [address] [place] [address]
--- OUTSIDE RECORDS SUMMARY | 2023-12-04 17:33 | XMS_ITS | Continuity of Care Document ---
Author Name Unknown Organization [facility] Address [address] [place] [address]- Care Team Providers Care Relay Worker Name Role Phone Megan PROCUREMENT INTERNSHIP, Sj Monroe Primary Care Physi mago [place] [facility] [place]/22 [facility] [address] [place] [id number] Attending Physician: Chayo Mcclellan Admitting Physician: AdmChayo bueno Referring Physician: Admtr, Chayo Allergies, Adverse Reactions, Alerts Substance Reaction Severity [...] 1 Refills, Maintenance, 09/17/21 16:10:00 EST, Capsule, [id number], Partial fill upon patient request if the [...] 06/27/10 Active Neuropathy R>L, s/p EMG at [facility], s/p steroid injection Confirmed Active Obese class II Confirmed Active Obesity Confirmed Active [facility] Rn Utilization Management Um Lisbet Serrano [facility] [phone] Confirmed Active Psychophysiologic insomnia Confirmed Active Snoring Confirmed Active Thrombocytosis s/p eval by Dr. Silva, observation Confirmed Active 1+ Hx of Gestational Diabetes and strong Family Hx. Social History Social History Type Response Smoking Status Never smoker; Tobacc o user in household: No entered on: 04/22/18 Sex Patient Care team information Care Team Personnel Name: Nicole RN, Trinh Position: [facility] AMB Nurse Member Role: Primary Care Nurse Name: Nita Leigh RN Position: [facility] OB RN Member Role: Primary Care Nurse Name: Janie Pandya RN Position: [facility] RN Member Role: Primary Care Nurse Name: Bebeto Forte RN Position: [facility] RN Member Role: Primary Care Nurse Name: Megan BARRIGA, Sj Monroe Position: Reference Physician Member Role: PCP Address: Address: [address] [place] [address]- Care Team Related Persons Name: CURTIS ALFRED Address: home [address] [place] [id number] Name: SARTHAK ALFRED Address: home [address] [place] [id number]
--- OUTSIDE RECORDS SUMMARY | 2023-12-04 17:33 | XMS_ITS | Continuity of Care Document ---
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 hours, PRN Insulin LISPRO Sliding Scale, 2-10 units, Subcutaneous Injection, 3 times a day before meals levothyroxine 0.112 mg oral tablet, 112 mcg, By Mouth, Daily LITHium Tablet, 150 mg, By Mouth, Daily in AM LORazepam Tablet, 2 mg, By Mouth, 4 times a day Melatonin Tablet, 9 mg, By Mouth, Daily at bedtime, PRN metFORMIN 500 mg oral tablet, extended release, 500 mg, By Mouth, 2 times a day Milk of Magnesia Liquid, 30 mL, By Mouth, Daily Minoxidil Tablet, 2.5 mg, By Mouth, Daily MiraLax Powder, 17 Gm= 1 pack/packet, By Mouth, Daily NaCL 0.9% Flush, 3 mL, IV Push, Every 8 hours NaCL 0.9% Flush, 3 mL, IV Push, Every 8 hours, PRN zolpidem 5 mg oral tablet, 10 mg, By Mouth, Daily at bedtime, PRN Home acetaminophen 325 mg oral tablet, 650 mg, By Mouth, Every 8 hours, PRN amLODIPine 5 mg oral tablet, 5 mg= 1 tablet, By Mouth, Daily atorvastatin 10 mg oral tablet, 10 mg= 1 tablet, By Mouth, Daily carvedilol 3.125 mg oral tablet, 3.125 mg= 1 tablet, By Mouth, 2 times a day Docusate Sodium Capsule, 100 mg= 1 capsule, By Mouth, 2 times a day, PRN levothyroxine 0.088 mg oral tablet, 88 mcg= 1 tablet, By Mouth, Daily, 11 refills lithium 150 mg oral capsule, 150 mg= 1 capsule, By Mouth, Daily in AM LORazepam 2 mg oral tablet, 2 mg, By Mouth, 4 times a day melatonin 3 mg oral tablet, 9 mg, By Mouth, Daily at bedtime, PRN metFORMIN 500 mg oral tablet, 500 mg= 1 tablet, By Mouth, 2 times a day zolpidem 10 mg oral tablet Allergies barb??(rash) amoxicillin??(unknown) Abilify??(NMS) Effexor??(RASH, clonazepam, RASH) Haldol??(drooling tonhue swelling ? NMS with inc cpk) Seroquel XR??(Vitamin D allergy, Vitamin D allergy) Vitamin D3??(50k dose) azithromycin clonazepam??(RASH) doxycycline hyclate hydrOXYzine levofloxacin??(lip swelling) sulfamethoxazole-trimethoprim??(rash) Social History Alcohol Use: Never. Sexual Sexually involved in last 6 months: No. Substance Abuse Use: Never. Tobacco Never smoker, Tobacco user in household: No. Family History CAD - Coronary artery disease: Mother. Diabetes mellitus type II: Mother, Father and Sister. Hypertension: Father. PVD - Peripheral vascular disease: Father. Immunizations Vaccine Date Status pneumococcal 23-valent vaccine - Not Given Comments : Patient Refuses glucose 104 influenza virus vaccine, inactivated - Not Given Comments : Patient Refuses glucose 104 influenza virus vaccine, inactivated 07/14/2013 Given Pneumovax 23 (oldterm) 10/09/2012 Given Tet/Diphth/Acel, Pertussis (oldterm) 09/03/2008 Given Comments : vis given Lab Results Event Name?? Event Result?? Normal Range?? Date/Time?? WBC 9.8 k/mm3 4 k/mm3 - 11 k/mm3 09/20/23 03:15:00 RBC 4.6 m/mm3 4.2 m/mm3 - 5.4 m/mm3 09/20/23 03:15:00 Hgb 12.2 Gm/dL 11.7 Gm/dL - 15.5 Gm/dL 09/20/23 03:15:00 Hct 38.6 % 35.7 % - 45.8 % 09/20/23 03:15:00 MCV 83.9 femtoliters 80 femtoliters - 100 femtoliters 09/20/23 03:15:00 MCH 26.5 pg??Low 27 pg - 34 pg 09/20/23 03:15:00 MCHC 31.6 g/dL??Low 33 g/dL - 37 g/dL 09/20/23 03:15:00 Platelet Count 367 k/mm3 150 k/mm3 - 460 k/mm3 09/20/23 03:15:00 RDW-SD 49.7 femtoliters??High ?? 09/20/23 03:15:00 MPV 10.7 femtoliters 9.4 femtoliters - 12.4 femtoliters 09/20/23 03:15:00 Nucleated RBC (Automated) 0 #/100 WBC'S ?? 09/20/23 03:15:00 Abs. NRBC 0 k/mm3 ?? 09/20/23 03:15:00 Sodium 142 mmol/L 133 mmol/L - 145 mmol/L 09/20/23 03:18:00 Potassium 4.5 mmol/L 3.6 mmol/L - 5.2 mmol/L 09/20/23 03:18:00 Chloride 107 mmol/L 98 mmol/L - 107 mmol/L 09/20/23 03:18:00 Bicarbonate Level 26 mmol/L 22 mmol/L - 29 mmol/L 09/20/23 03:18:00 Anion Gap 9 4 ??- 17 09/20/23 03:18:00 Glucose Level 121 mg/dL??High 70 mg/dL - 99 mg/dL 09/20/23 03:18:00 Glucose, POC 119 mg/dL??High 70 mg/dL - 99 mg/dL 09/20/23 12:34:00 Glucose, POC 102 mg/dL??High 70 mg/dL - 99 mg/dL 09/20/23 08:17:00 Glucose, POC 154 mg/dL??High 70 mg/dL - 99 mg/dL 09/19/23 20:44:00 BUN 6 mg/dL 6 mg/dL - 20 mg/dL 09/20/23 03:18:00 Creatinine-Blood 0.6 mg/dL 0.5 mg/dL - 1 mg/dL 09/20/23 03:18:00 Estimated GFR Creatinine 105 ML/MIN/1.73 M2 ?? 09/20/23 03:18:00 Calcium 9.4 mg/dL 8.6 mg/dL - 10.5 mg/dL 09/20/23 03:18:00 ? Hospital Progress note * Melody Guerra RN: SIGN, MODIFY, PERFORM, SIGN, VERIFY Event Display: Progress Note Hospital Authored Date: [id number] Patient: TRELL MARTINEZ Age: 57 years Sex: Female : 1965 Associated Diagnoses: None Author: Melody Guerra RN Findings Problem Related to Alteration in Psychosocial : Alteration in Psychosocial Function/new 09/20/2023 11:00 EST Alteration in Psychosocial Related to Other: Psych bed hold Goals & Outcomes, Psychosocial Psychosocial support will be provided to Pt/S.O. as needed, Pt will identify stressors leading up to event, Pt will state importance of adhering to medication regime, Pt/caregiver will be offered appropriate resources & support, Pt/caregiver will express feelings/needs/fears /concerns, Pt/caregiver will maintain/obtain psychological stability, Pt/caregiver will participate in coping skill counseling Interventions, Psychosocial Assess psychosocial needs, Assess readiness to learn needed lifestyle changes, Assess/monitor level of consciousness, Collaborate with provider for psychiatric consult, Evaluate resources & support system available to pt, Offer support; discuss coping strategies, Provide a calm, supportive environment, Provide chances to express concerns/emotions/expectations, Provide info on community resources for education, support, Provide information about illness and recovery, Provide verbal limits if pt's behavior escalates BH Goals/Interventions, Psychosocial Yes Psychosocial, Problem Start 09/20/2023 11:17 Reviewed Plan with, Psychosocial Patient Patient Progression, Psychosocial Pt progressing according to plan . Evaluation Patient A+Ox4, Montenegrin and Montserratian speaking, reporting no pain, no s/s of distress noted. Pleasant and cooperative with care. Awaiting [facility] inpatient bed at this time. Bed in [facility], call yu within reach, safety measures maintained. . * Melody Guerra RN: PERFORM Event Display: Progress Note Hospital Authored Date: Patient DC to [facility] via wheelchair transport. * Linda Nuñez MD: PERFORM, MODIFY, MODIFY, MODIFY Event Display: Progress Note Hospital Authored Date: Patient: ??TRELL MARTINEZ ? Age:??57 Years?Sex:??Female?:??1965?? Subjective ?? saw pt with help from [employer] pt said she speaks a lot of Montserratian, but appreciated having a chance to speak with manager research's help she is eager to talk to psych again; I let her know we will request that and also seek an update onpsych bed search she is medically stable for transfer to psychiatry when that is available ? Review of Systems Objective Vital Signs?? Temperature: 97.9 DegF (09/20/23 03:50:00) Temperature Route: Oral (09/20/23 03:50:00) Pulse Rate:??104 bpm??High (09/20/23 03:50:00) Respiratory Rate: 18 br/min (09/20/23 03:50:00) Systolic Blood Pressure: 122 mm Hg (09/20/23 03:50:00) Diastolic Blood Pressure: 60 mm Hg (09/20/23 03:50:00) Blood pressure sites: Arm, right (09/20/23 03:50:00) Mean Arterial Pressure: 81 mm Hg (09/20/23 03:50:00) Pulse Pressure: 62 mm Hg (09/20/23 03:50:00) Oxygen Saturation: 99 % (09/20/23 03:50:00) Mode of Delivery (Oxygen): Room air (09/20/23 03:50:00) Early Warning Score: 3 (09/20/23 04:42:36) ? Physical Exam alert, anxious, independent pleasant and conversant, though somewhat anxious EOMI no epistaxis HR 104 Resp non-labored, 99% on RA ext warm/DEE no seizure activity observed no lethargy or encephalopathy observed no agitation Results Test Name Test Result Date/Time WBC 9.8 k/mm3 09/20/2023 03:15 EST Hgb 12.2 Gm/dL 09/20/2023 03:15 EST Platelet Count 367 k/mm3 09/20/2023 03:15 EST Sodium 142 mmol/L 09/20/2023 03:18 EST Potassium 4.5 mmol/L 09/20/2023 03:18 EST Glucose Level 121 mg/dL 09/20/2023 03:18 EST BUN 6 mg/dL 09/20/2023 03:18 EST Creatinine-Blood 0.6 mg/dL 09/20/2023 03:18 EST Assessment/Plan This is a 57-year-old??woman with past medical history significant for bipolar 1 disorder with psychotic features, catatonia with treatment with ECT in the past, who initially presented on 08/26 due to concern for catatonia, patient has been in the ED awaiting inpatient psych placement, and has been being managed for catatonia with Ativan. Psychiatry team re-evaluated 09/17, and advised that pt should continue on inpatient psychiatric bed search??list, due to risk for worsening catatonia as ativan is gradually??withdrawn in future: ?? Quoted from psychiatry followup note 09/17: ...Diagnosis: catatonia bipolar disorder with psychotic features ?? Recommendations: -Continue Ativan 2 mg PO QID -Psych bed search ongoing -Patient may not leave without psychiatric clearance... ? History of bipolar 1 disorder with psychotic features, on lithium ??History of catatonia requiring ECT treatment in the past ?Presenting on 08/26 with mutism and concerning features for catatonia ?Medical workup on 09/11 showing??unremarkable ??repeat evaluation by psychiatry, they advised that her symptoms reflect recurrent catatonia. Recommended Ativan??2 mg 4 times daily. ?-Psychiatry to follow Awaiting psychiatric inpatient placement ? Chronic Stable Medical Conditions: ??Diabetes (E11.9): Sliding scale. ??Hypertension (I10): Continue Norvasc and carvedilol if patient is willing to take ??Hypothyroid (E03.9): Continue levothyroxine ? Quality measures: ?Diet: Regular ?DVT: Lovenox ?CODE STATUS full ?Discharge: Patient is on the list for psychiatry inpatient bed search ? * Brenda Awan MD, Beck: PERFORM Event Display: Progress Note Hospital Authored Date: Patient: ??TIMA TRELL ? Age:??57 Years?Sex:??Female?:??1965?? Subjective Overnight: No overnight events.? Mobility: Ambulatory ?? Last BM: 09/17/2023 ?? Currently: Trell mentions feeling well.?? In good spirits today.?? Review of Systems Unable to perform??due to clinical status?? Objective Vital Signs?? Temperature: 97.3 DegF (09/19/23 11:17:00) Temperature Route: Temporal (09/19/23 11:17:00) Pulse Rate: 70 bpm (09/19/23 11:17:00) Respiratory Rate: 20 br/min (09/19/23 11:17:00) Systolic Blood Pressure: 132 mm Hg (09/19/23 11:17:00) Diastolic Blood Pressure: 71 mm Hg (09/19/23 11:17:00) Blood pressure sites: Arm, right (09/19/23 11:17:00) Mean Arterial Pressure: 91 mm Hg (09/19/23 11:17:00) Pulse Pressure: 61 mm Hg (09/19/23 11:17:00) Oxygen Saturation: 98 % (09/19/23 11:17:00) Mode of Delivery (Oxygen): Room air (09/19/23 11:17:00) Early Warning Score: 2 (09/19/23 13:43:08) ? Intake/Output? 09/10 23:34 09/19 07:00 09/18 07:00 09/17 07:00 09/16 07:00 ?? 09/19 15:33 09/19 15:33 09/19 06:59 09/18 06:59 09/17 06:59 Intake ? 5100 ?720 ?440 ?360 ?600 Output ?0 ?0 ?0 ?0 ?0 Net Total ? 5100 ?720 ?440 ?360 ?600 ? Urine Count ? 26 ?3 ?3 ?4 ?3 ? Physical Exam Constitutional: Alert, in no distress. Mental Status: Oriented to person, place and time. Respiratory: Clear to auscultation. No wheezing, rales or rhonchi. Cardiovascular: S1 S2 regular. No murmurs, rubs or gallops. Gastrointestinal: Abdomen soft, non-tender, non-distended. Normal bowel sounds. No pulsatile mass. No hepatosplenomegaly. Genitourinary: No costovertebral angle tenderness. Skin: No rashes or lesions. No petechiae or purpura.?? Musculoskeletal: No cyanosis or clubbing. No gross deformities. Normal range of motion. Psychiatric: Normal mood and affect Assessment/Plan Assessment:??Trell Martinez is a 57-year-old female, with past medical history significant for bipolar 1 disorder with psychotic features, catatonia with treatment with ECT in the past, who initially presented on 08/26 due to concern for catatonia, patient has been in the ED awaiting inpatient psych placement, and has been being managed for catatonia with Ativan. Patient has previously been examined by psychiatry on 2 separate occasions 09/12 and 09/13, for which they felt she was clinically not catatonic anymore and safe for discharge. Clinically on our assessment, patient has not made a significant improvement on evaluations and have been discussing with family about significant concernsfor patient's safety when she goes home. Readdressed with psychiatry team today, agree patient appears more catatonic and mending increasing patient Ativan dose. Patient is an inpatient bed search for psych. ?? History of bipolar 1 disorder with psychotic features, on lithium ??History of catatonia requiring ECT treatment in the past ??Presenting on 08/26 with mutism and concerning features for catatonia. Patient has been in the EDwaiting inpatient psych placement and was admitted to the medical service on the evening of 09/11. ??Medical workup on 09/11 showing normal CBC with differential, normal CMP, TSH normal, lithium level less than 0.1 (consistent with medication refusal while in the hospital), and normal ammonium. As above, on repeat evaluation by psychiatry team today Patient symptoms reflect recurrent catatonia. Recommended increasing patient dose of Ativan back to 2 mg 4 times daily. ??Patient continues to refuse her doses of ativan, took 1x on 09/14. ?? Plan: ??-Ativan 2 mg 4 times a day discussing with psychiatry given concern for increasing ??-IM Ativan for aggressive behavior ??-Psychiatry to follow ??-Patient is a psych psychiatric inpatient bed search, pending placement ? Chronic Stable Medical Conditions: Diabetes (E11.9): Sliding scale.? Hypertension (I10): Continue Norvasc and carvedilol if patient is willing to take Hypothyroid (E03.9): Continue levothyroxine ?? Quality measures: ??Diet: Regular ??DVT: Lovenox ??CODE STATUS full ??Discharge: Patient is an inpatient bed search ?? Patient??discussed with attending physician ?? Beck Up MD, PGY-3 #[id number] ? * Maximilian Clay MD: PERFORM Event Display: Progress Note Hospital Authored Date: [id number] Attending Attestation:??I have interviewed and examined??TRELL??TIMA??on??09/19, and reviewedthe vital signs, documentation,??and lab/radiology/ancillary data in [facility]. ??I have discussed their case and management with the resident and RN and agree with the findings and plan as documented in the resident???s note.?? I have additionally discussed the workup, diagnosis, and treatment plan withthe patient/manager progressive care. ?? Additions/corrections: no new issues still tearful about discussion with family ?? Diagnoses ?? 1. ??Catatonia ??(F06.1) 2. ??Bipolar 1 disorder ??(F31.9) ?? medical necessity: remainder of diagnoses and plans as outlined in progress note, ??at risk for progressive catatonia, pending _, improvement in _ clinical status, and establishment of safe dischargeplan??with psych ?? Consult note * Janessa Calhoun DO: PERFORM, MODIFY Event Display: Consultation Note Authored Date: [id number] Patient: ??TRELL MARTINEZ ? Age:??57 Years?Sex:??Female?:??1965?? Chief Complaint Referring Provider:??Aislinn Iverson, DO Consulting psychiatrist:??Chuyita Perez MD Sources of information:??Patient, [facility] Reason for Consultation Identifying information:?? Reason for hospitalization, medical diagnosis: presents to the ED for a crisis evaluation Psychiatry was consulted for: [facility] medication evaluation ?? History of Present Illness Trell Martinez is a 57-year-old Montenegrin-speaking patient who presents with altered mental status. We were asked to assess and advise on treatment. In preparation for this consultation, I reviewed the chart, discussed the case with the primary treatment team and attempted to interview the patient.??Patient unable to provide subjective history. Review of Systems Deferred. Patient unable to provide subjective history. ?? The history below is obtained from chart review. ?? Past Psychiatric History?? The patient has been offered previous diagnosis of bipolar 1 disorder with psychotic features. ??She has had episodes of catatonia. ??There are prior inpatient psychiatric admissions including prior history of admission to [facility].?? She has received ECT in the past.??Her catatonia has been treated both with ECT and lorazepam in the past. ??Previous medications have included lorazepam, lithium and trazodone. ??She apparently has also had a history of neuroleptic malignant syndrome and carries severe allergies to antipsychotic medications. ??It is unclear if she has had a previous suicide attempts or self-injurious behaviors. ?? Family Psychiatric History Previous consultations in [facility] have noted that her family psychiatric history was noncontributory. ?? Social History?? Largely obtained from previous records. ??She currently lives alone. ??She has a son who does not live with her.??She does not appear to be any history of legal issues or history. ?? Substance Use History?? She has no history of substance use or illicit drug use. Physical Exam Vitals & Measurements T:??98.7?F?? TMIN:??97.7?F?? TMAX:??98.7?F?? HR:??72??(Peripheral)?? RR:??20?? BP:??154/80?? SpO2:??95%?? Mental Status Exam Appearance: Female dressed in hospital gown, open to back and patient politely encouraged to cover herself. She has disheveled grooming and hygiene and appears older than stated age. Eye contact: avoidant, then prolonged Attitude: noncooperative Motor Activity: psychomotor slowing Mood: ... Affect: blunted Speech: mute Perception: no reported AVH; patient does not provide any subjective history Orientation:??cannot assess? Memory: cannot assess? Thought Process: cannot assess? Thought Content: cannot assess?? Medication Adherence: poor Reliability: uncertain Insight: impaired Judgment: impaired?? Impulse control: impaired Suicidality/Self-destructive Behavior: no current evidence of suicidal ideation, cannot fully assess Homicidality/Violence: no current evidence of homicidal ideation, cannot fully assess ?? MSK Exam:??Patient is seen ambulating with slowed gait. No rigidity noted.??Full Richard-Rigoberto catatonia rating unable to be completed today in ED due to patient mental status. ?? Assessment/Plan This is a 57-year-old patient, known to our service, with past psychiatric history of inpatient admissions, bipolar I disorder with psychotic features as well as history of catatonia and treatment with ECT previously.??The patient currently presents with symptoms concerning for recurrent catatonia,including mutism and psychomotor slowing.??There is leukocytosis currently (WBC 17.3 with neutrophilic predominance); any acute infectious process may predispose the patient to??delirium.??There is chart record of recent medication refusal which is likely contributory to her symptoms. ?? At this time she is unable to care for self, including??report??that she??has not been eating ordrinking for two days, as well as inability to self- advocate??or provide information. As such, she may benefit from inpatient psychiatric admission when medically cleared; however,??in the past, she has required IV??Ativan, which is not??available on the??inpatient psychiatric unit.??We will recommend reinitiating Ativan as below and continue to follow. When she is medically cleared, she will need to be reassessed for??requirement of IV lorazepam, the necessity of inpatient psychiatric admission,??and/or ECT or other treatment.? DSM- 5 Diagnoses: Bipolar disorder with psychotic features Rule out catatonia ?? Recommendations: - Please schedule lorazepam 2 mg PO BID.?? - Please obtain lithium level. -??Patient may NOT leave [facility] without psychiatry clearance. We will continue to follow and assess for the necessity of IV lorazepam treatment, ECT consultation, or other??treatment.?? - Please contact the psych consult service when she is medically cleared. She may require inpatientpsychiatric admission as noted above. - The patient does not require a constant senior environmental consultant for suicidality currently.??If she develops confusion and agitation, she may benefit from a sitter for agitation and at this time there does not appear to be evidence of this. - The psychiatric consult service will continue to follow. ?? Thank you for allowing us to participate in this patient's care. Please feel free to contact the Psychiatry consult service [phone]) with any questions or concerns.? Case and plan discussed with attending psychiatrist,??Dr. Perez. ?? Janessa Calhoun DO, PGY4 Psychiatry Residency Program [facility] Pager #[phone]?? Problem List/Past Medical History Ongoing Acne vulgaris Adult-onset obesity, Metabolic Syndrome [facility] Family Assessment Worker Lisbet Serrano for [facility] [phone] Bipolar affective disorder, currently manic, severe, with psychosis Chronic back pain Depression, Major, w/ catatonia during exac, ongoing ECT tx's Diabetes mellitus Hypertension Hypothyroidism Insomnia due to mental disorder Iron deficiency anemia Malignant neuroleptic syndrome, On abilify and haldol in 02/01/06 to 04/19/06 Multiple skin tags Neuropathy R>L, s/p EMG at [facility], s/p steroid injection Obesity Psychophysiologic insomnia Severe obesity (BMI 35.0-39.9) with comorbidity Snoring Thrombocytosis s/p eval by Dr. Silva, observation Procedure/Surgical History ???Removal of Port-a-cath (07/14/2015)???Removal of skin tags, multiple fibrocutaneous tags, any area; up to and including 15 lesions (06/27/2010)??? section - at term (1999) Medications Inpatient Acetaminophen Tablet, 650 mg, By Mouth, Every 8 hours, PRN amLODIPine 5 mg oral tablet, 2.5 mg, By Mouth, Daily atorvastatin 10 mg oral tablet, 10 mg, By Mouth, Daily at bedtime carvedilol 6.25 mg oral tablet, 6.25 mg, By Mouth, 2 times a day Ibuprofen Tablet, 400 mg, By Mouth, Every 8 hours, PRN levothyroxine 0.112 mg oral tablet, 112 mcg, By Mouth, Daily LITHium Tablet, 150 mg, By Mouth, Daily in AM LORazepam Tablet, 2 mg, By Mouth, Every 8 hours, PRN Maalox Plus Liquid, 30 mL, By Mouth, Every 8 hours, PRN Melatonin Tablet, 9 mg, By Mouth, Daily at bedtime, PRN metFORMIN 500 mg oral tablet, extended release, 500 mg, By Mouth, 2 times a day Minoxidil Tablet, 2.5 mg, By Mouth, Daily zolpidem 5 mg oral tablet, 10 mg, By Mouth, Daily at bedtime, PRN Home amLODIPine 5 mg oral tablet, 5 mg= 1 tablet, By Mouth, Daily Ativan 2 mg oral tablet, 2 mg= 1 tablet, By Mouth, 2 times a day atorvastatin 10 mg oral tablet, 10 mg= 1 tablet, By Mouth, Daily Banophen 50 mg oral capsule, 50 mg= 1 capsule, By Mouth, Every 6 hours benzonatate 200 mg oral capsule, 200 mg= 1 capsule, By Mouth, 3 times a day, PRN, 1 refills carvedilol 3.125 mg oral tablet, 3.125 mg= 1 tablet, By Mouth, 2 times a day gabapentin 100 mg oral capsule, 100 mg= 1 capsule, By Mouth, Daily at bedtime levothyroxine 0.088 mg oral tablet, 88 mcg= 1 tablet, By Mouth, Daily, 11 refills lithium 300 mg oral capsule, 450 mg, By Mouth, 2 times a day lithium 300 mg oral capsule, 300 mg= 1 capsule, By Mouth, 2 times a day LORazepam 2 mg oral tablet metFORMIN 500 mg oral tablet, 500 mg= 1 tablet, By Mouth, 2 times a day mirtazapine 7.5 mg oral tablet Naproxen, By Mouth Protonix 40 mg oral delayed release tablet, 40 mg= 1 tablet, By Mouth, Daily Senna 8.6 mg oral tablet, 8.6 mg= 1 tablet, By Mouth, Daily at bedtime zolpidem 10 mg oral tablet Allergies barb??(rash) amoxicillin??(unknown) Abilify??(NMS) Effexor??(RASH, clonazepam, RASH) Haldol??(drooling tonhue swelling ? NMS with inc cpk) Seroquel XR??(Vitamin D allergy, Vitamin D allergy) Vitamin D3??(50k dose) azithromycin clonazepam??(RASH) doxycycline hyclate hydrOXYzine levofloxacin??(lip swelling) sulfamethoxazole-trimethoprim??(rash) Social History Alcohol Use: Never. Sexual Sexually involved in last 6 months: No. Substance Abuse Use: Never. Tobacco Never smoker, Tobacco user in household: No. Family History CAD - Coronary artery disease: Mother. Diabetes mellitus type II: Mother, Father and Sister. Hypertension: Father. PVD - Peripheral vascular disease: Father. Immunizations Vaccine Date Status pneumococcal 23-valent vaccine - Not Given Comments : Patient Refuses glucose 104 influenza virus vaccine, inactivated - Not Given Comments : Patient Refuses glucose 104 influenza virus vaccine, inactivated 07/14/2013 Given Pneumovax 23 (oldterm) 10/09/2012 Given Tet/Diphth/Acel, Pertussis (oldterm) 09/03/2008 Given Comments : vis given * Chuyita Perez MD: PERFORM Event Display: Consultation Note Authored Date: I saw and evaluated this patient on the date of service. I discussed the case and plan with the resident Dr. Calhoun. I agree with their assessment and plan as noted below.??Pt with possible infectious process given her WBC of 17, would need medical clearance prior to psychiatric admission. ?? Note * Linda Nuñez MD: PERFORM Event Display: Discharge/Transfer Note Hospital Authored Date: Patient: ??TRELL MARTINEZ ? Age:??57 Years?Sex:??Female?:??1965?? Patient Information Discharge Location: [facility] Primary Care Physician: Megan BARRIGA, Sj Monroe Admit Date/Time: 09/10/23 23:34 Discharge Disposition Discharge Disposition: to INpatient??psychiatry unit? Discharge Diagnosis Catatonia (F06.1) Bipolar 1 disorder (F31.9) Diabetes (E11.9) Hypertension (I10) Hypothyroid (E03.9) Mutism (R47.01) Noncompliance with medication regimen (Z91.148) Severe obesity (BMI 35.0-39.9) with comorbidity (E66.01) ?? _ Discharge Medications Acetaminophen (acetaminophen 325 mg oral tablet)?650?Milligram?By Mouth?Every 8 hours?as needed?Pain , Moderate Amlodipine (amLODIPine 5 mg oral tablet)?5?Milligram?1?tablet?By Mouth?Daily Atorvastatin (atorvastatin 10 mg oral tablet)?1?tab(s)?10?Milligram?By Mouth?Daily Carvedilol (carvedilol 3.125 mg oral tablet)?3.125?Milligram?1?tablet?By Mouth?2 times a day Docusate (Docusate Sodium Capsule)?100?Milligram?1?capsule?By Mouth?2 times a day?as needed?Constipation Levothyroxine (levothyroxine 0.088 mg oral tablet)?1?tab(s)?88?Microgram?By Mouth?Daily?replaces 112mcg dose! Wink (lithium 150 mg oral capsule)?1?capsule?150?Milligram?By Mouth?Daily in AM Lorazepam (LORazepam 2 mg oral tablet)?2?Milligram?By Mouth?4 times a day Melatonin (melatonin 3 mg oral tablet)?9?Milligram?By Mouth?Daily at bedtime?as needed?Sleep Metformin (metFORMIN 500 mg oral tablet)?1?tab(s)?500?Milligram?By Mouth?2 times a day Zolpidem (zolpidem 10 mg oral tablet)?TAKE 1 TABLET BY MOUTH AT BEDTIME ? note: pt reported she was not taking any medications on initial evaluation by??admitting MD; this list above?? includes the meds she has been receiving as standing orders here in the hospital, with PRN bowel meds??as well please review med rec again with pt once she is calmer, prior to d/c from Psych Unit ?? Allergies Allergies ?(Active and Proposed Allergies Only) amoxicillin? (Severity: Persistent Moderate, Onset: Unknown) ?Reactions: unknown barb? (Severity: Persistent Moderate, Onset: Unknown) ?Reactions: rash hydrOXYzine? (Severity: Unknown severity, Onset: Unknown) sulfamethoxazole-trimethoprim? (Severity: Unknown severity, Onset: Unknown) ?Reactions: rash Vitamin D3? (Severity: Unknown severity, Onset: Unknown) ?Reactions: 50k dose levofloxacin? (Severity: Unknown severity, Onset: Unknown) ?Reactions: lip swelling azithromycin? (Severity: Unknown severity, Onset: Unknown) Seroquel XR? (Severity: Unknown severity, Onset: Unknown) ?Reactions: Vitamin D allergy, Vitamin D allergy doxycycline hyclate? (Severity: Unknown severity, Onset: Unknown) Abilify? (Severity: Unknown severity, Onset: Unknown) ?Reactions: NMS Haldol? (Severity: Unknown severity, Onset: Unknown) ?Reactions: drooling tonhue swelling ? NMS with inc cpk clonazepam? (Severity: Unknown severity, Onset: Unknown) ?Reactions: RASH Effexor? (Severity: Unknown severity, Onset: Unknown) ?Reactions: RASH, clonazepam, RASH ? PCP Follow-Up/Heads-Up Ongoing close followup needed Hospital Course This is a 57-year-old female, with past medical history significant for bipolar 1 disorder with psychotic features, catatonia with treatment with ECT in the past, who initially presented on 08/26 dueto concern for catatonia, patient has been in the ED awaiting inpatient psych placement, and has been being managed for catatonia with Ativan. There was concern while she was in the ED that she was not taking her scheduled ativan and other medications. She was admitted to the floor on 09/11. ?? While on the floor, patient was taking her ativan. Psychiatru re-evaluated patient does not currently have any signs of acute catatonia, and from a psych standpoint cleared. ?? Given she was cleared by psych and had a negative medical work-up patient was discharged home. She was discharged with instructions to continue ativan 2 mg BID (per psych). ?? Medical workup on 09/11 showing normal CBC with differential, normal CMP, TSH normal, lithium level less than 0.1 (consistent with medication refusal while in the hospital), and normal ammonium. ?? History of bipolar 1 disorder with psychotic features, on lithium History of catatonia requiring ECT treatment in the past Presenting on 08/26 with mutism and concerning features for catatonia. Patient has been in the ED waiting inpatient psych placement and was admitted to the medical service on the evening of 09/11. ?? Recommendations: ??-lContinue patient on home Ativan dose, Ativan 2 mg twice daily - [facility] f/up? Diabetes (E11.9): Continue Metformin (home med) ? Hypertension (I10): ??Continue Norvasc and carvedilol if patient is willing to take ? Hypothyroid (E03.9): ??Continue levothyroxine ? Objective This is a 57-year-old woman with past medical history significant for bipolar 1 disorder with psychotic features, catatonia with treatment with ECT in the past, who initially presented on 08/26 due to concern for catatonia, patient has been in the ED awaiting inpatient psych placement, and has beenbeing managed for catatonia with Ativan. Psychiatry team re-evaluated 09/17, and advised that pt should continue on inpatient psychiatric bed search list, due to risk for worsening catatonia as ativanis gradually withdrawn in future: ?? Quoted from psychiatry followup note 09/17: ?? ...Diagnosis: ??catatonia ??bipolar disorder with psychotic features ?? Recommendations: ??-Continue Ativan 2 mg PO QID ??-Psych bed search ongoing ??-Patient may not leave without psychiatric clearance... ? History of bipolar 1 disorder with psychotic features, on lithium ?History of catatonia requiring ECT treatment in the past ?Presenting on 08/26 with mutism and concerning features for catatonia ?Medical workup on 09/11 showing unremarkable ?repeat evaluation by psychiatry, they advised that her symptoms reflect recurrent catatonia. Recommended Ativan 2 mg 4 times daily. RN let me know at 4saturday that pt now has psychiatric inpatient placement -- she will be transferred 09/20 PM to [facility] unit ? Chronic Stable Medical Conditions: ?Diabetes (E11.9): Outpt f/u needed. Please check POCs premeal TID; if glucose running > 150sconsistently, can restart insulin sliding scale ?Hypertension (I10): Continue Norvasc and carvedilol if patient is willing to take ?Hypothyroid (E03.9): Continue levothyroxine ? Quality measures: ?DVT: Lovenox ?CODE STATUS full ?Discharge: Patient is on the list for psychiatry inpatient bed search. Medically stable for transfer to psychiatry ? Vital Signs?? Temperature: 98.4 DegF (09/20/23 13:58:00) Temperature Route: Oral (09/20/23 13:58:00) Pulse Rate: 82 bpm (09/20/23 13:58:00) Respiratory Rate: 17 br/min (09/20/23 13:58:00) Systolic Blood Pressure: 112 mm Hg (09/20/23 13:58:00) Diastolic Blood Pressure: 75 mm Hg (09/20/23 13:58:00) Blood pressure sites: Arm, right (09/20/23 13:58:00) Mean Arterial Pressure: 87 mm Hg (09/20/23 13:58:00) Pulse Pressure: 37 mm Hg (09/20/23 13:58:00) Oxygen Saturation: 98 % (09/20/23 13:58:00) Mode of Delivery (Oxygen): Room air (09/20/23 13:58:00) Early Warning Score: 0 (09/20/23 14:01:08) ? . Physical Exam see same-date progress note?? Pending Results Add On Lab Order ordered on 08/28/2023 Complete Urinalysis ordered on 09/11/2023 Follow-Up Appointments Added Follow Up ?Time Frame ?Comments Please return if you have fever, chest pain, trouble breathing, neck pain, vision changes, or any other worrisome symptoms. Please followup with all of your usual doctors. Return if you have bleeding, fever, cannot eat/drink, or have any other worrisome symptoms Megan TRUCK DRIVER TEAMSTER, Sj Monroe?Within one week Patient Instructions The Psychiatry team will give you further discharge instructions when you are ready to leave the Inpatient Psychiatry unit. Post Discharge Care Discharge ?to [facility], 09/20/23 16:08:00 [facility] Face to Face ^HomeHealthFTF 37_ minutes spent on discharge * Melody Guerra RN: PERFORM Event Display: Patient Education/Instruction Authored Date: [id number] Inpatient Adult Discharge Instructions [address] [address] Name: TRELL MARTINEZ : 1965 Visit: 09/10/2023 23:34:00 Current Date: 09/20/2023 16:08 Account: [id number] Inpatient Adult Discharge Instructions We would like to thank you for allowing us to assist you with your healthcare needs. The following includes patient education materials and information regarding your injury/illness. Our entire staffstrives to provide an excellent experience for our patients and their families. PLEASE ENSURE YOU FOLLOW-UP PER THE INSTRUCTIONS BELOW! ?? YOUR OPINION IS IMPORTANT TO US! Please complete the survey you may receive by mail or email. Your feedback will be used to make improvements to the healthcare experiences of our patients and their families. Surveys are administered by [employer] ?? If further treatment with your primary care physician or another doctor is recommended, it is important for you to keep the appointment. Call your primary care physician or return to the Emergency Department immediately if your condition worsens, fails to improve, or new symptoms develop. If you need to find a doctor, you can call [facility] for a referral at [phone] or toll free at [phone]) or log in to [email or web address].. ?? [facility], in keeping with [facility] guidance, no longer requires face masks for staff, patientsor visitors in most situations. Similiar to time spent indoors at other locations, there is the chance that you were exposed to repiratory viruses during your time with us (such as flu or COVID-19). If you develop symptoms concerning for a viral respiratory infection, please seek testing (and treatment if indicated) from your medical provider or home test kit. ?? You can view and manage your care through the patient portal or by using a health care choco of your choosing. [employer] is a website that allows you to securely view your medical information including your hospital discharge summary, office visit summaries, medications and follow-up visits. You can also request appointments, renew medications, and request access to your medical information using a health care choco of your choosing, or just ask a question. You can enroll at [email or web address] or register during your next office visit. You have been discharged from [facility] [place], Patient Care Unit: S64. If you have any questions regarding these instructions after you leave, please call us and we will be happy to assist you. [facility] Your Care Team Attending Physician Linda Nuñez MD Consulting Providers Stacie Ramos MD, MD, Flannery L Discharging Providers Linda Nuñez MD Reason for Admission Mutism aggressive behavior Your Diagnosis Bipolar 1 disorder Mutism Diabetes Hypertension Hypothyroid Noncompliance with medication regimen Catatonia Severe obesity (BMI 35.0-39.9) with comorbidity Tests Performed Below is a partial list of the tests performed during your hospitalization. You may have had other tests and procedures not included in this list. Please discuss all test results with your provider. ALT Ammonia Venous AST Basic Metabolic Panel BUN CBC CBC w/ Differential Comprehensive Metabolic Panel COVID-19, RSV, and Flu A/B, Rapid PCR Creatinine Electrolytes Ethanol Level FREE T4 Glucose Level GLUCOSE POC Wink Level Total Bilirubin TSH TSH with T4 Reflex (Adults Only) Urinalysis w/hold for Urine Culture CXR W/ Frontal and Lat Primary Care Provider Megan BARRIGA, Sj Monroe Advance Directive Health Care Proxy on File No Discharge Vitals Temperature: 98.4 DegF Weight: 83.1 kg Pulse Rate: 82 bpm ?? Respiratory Rate: 17 br/min ?? Systolic Blood Pressure: 112 mm Hg ?? Diastolic Blood Pressure: 75 mm Hg ?? Oxygen Saturation: 98 % ?? Studies Pending All tests and labs ordered during this hospital stay have been completed unless listed below. Please discuss all pending results with your provider listed above in these instructions. ?? Add On Lab Order Complete Urinalysis (UA) What to do next Instructions From Your Doctor The Psychiatry team will give you further discharge instructions when you are ready to leave the Inpatient Psychiatry unit. Discharge Orders You Need to Schedule the Following Appointments Follow Up with??Please return if you have fever, chest pain, trouble breathing, neck pain, vision changes, or any other worrisome symptoms. Follow Up with??Please followup with all of your usual doctors. Return if you have bleeding, fever,cannot eat/drink, or have any other worrisome symptoms Follow Up with??Megan BARRIGA, Sj Monroe When:??Within Within one week Where: [address] [place] [address]- Discharge Medications TIMALOANTRELL :1965 Visit Date:09/10/2023 Medications: Please continue your medications until treatment is completed or stopped by your provider. Medications not listed below should be discontinued. Discuss any questions related to medications with your provider. What How Much When Instructions Next Dose New Acetaminophen (acetaminophen 325 mg oral tablet) 650 Milligram Oral Every 8 hours as needed for Pain , Moderate as needed New Docusate (Docusate Sodium Capsule) 100 Milligram Oral Twice a day as needed for Constipation as needed New Melatonin (melatonin 3 mg oral tablet) 9 Milligram Oral Daily at Bedtime as needed for Sleep as needed Changed Wink (lithium 150 mg oral capsule) 1 capsule Oral Daily in the morning 09/21/23 AM Changed Lorazepam (LORazepam 2 mg oral tablet) 2 Milligram Oral 4 times a day 09/20/23 PM Unchanged Amlodipine (amLODIPine 5 mg oral tablet) 1 tab(s) Oral Daily 09/21/23 AM Unchanged Atorvastatin (atorvastatin 10 mg oral tablet) 1 tab(s) Oral Daily 09/21/23 AM Unchanged Carvedilol (carvedilol 3.125 mg oral tablet) 1 tab(s) Oral Twice a day 09/20/23 PM Unchanged Levothyroxine (levothyroxine 0.088 mg oral tablet) 1 tab(s) Oral Daily replaces 112mcg dose! ?? 09/21/23 AM Unchanged Metformin (metFORMIN 500 mg oral tablet) 1 tab(s) Oral Twice a day 09/20/23 PM Unchanged Zolpidem (zolpidem 10 mg oral tablet) TAKE 1 TABLET BY MOUTH AT BEDTIME ?? 09/20/23 PM ?? What How Much When Comments Stop Taking Benzonatate (benzonatate 200 mg oral capsule) 1 capsule Oral 3 times a day as needed for Cough Stop Taking DiphenhydrAMINE (Banophen 50 mg oral capsule) 1 capsule Oral Every 6 hours Stop Taking Gabapentin (gabapentin 100 mg oral capsule) 1 capsule Oral Daily at Bedtime Stop Taking Mirtazapine (mirtazapine 7.5 mg oral tablet) TAKE 1 TABLET BY MOUTH AT BEDTIME ?? Stop Taking Naproxen Oral Stop Taking Pantoprazole (Protonix 40 mg oral delayed release tablet) 1 tab(s) Oral Daily Stop Taking Senna (Senna 8.6 mg oral tablet) 1 tab(s) Oral Daily at Bedtime Test Results Below is a partial list of the most recent Laboratory test results done prior to this discharge. You may have had other tests and procedures not included in this list. Please discuss all test resultswith your provider. ALT (09/11/2023) ???ALT (SGPT) - 26 units/L Ammonia Venous (09/11/2023) ???Ammonia, Venous - 26 ??mole/L AST (09/11/2023) ???AST (SGOT) - 26 units/L Basic Metabolic Panel (09/20/2023) ???Sodium - 142 mmol/L???Potassium - 4.5 mmol/L???Chloride - 107 mmol/L???Bicarbonate Level - 26 mmol/L???Anion Gap - 9???Glucose Level - 121 mg/dL???BUN - 6 mg/dL???Creatinine-Blood - 0.6 mg/dL???Estimated GFR Creatinine - 105 ML/MIN/1.73 M2???Calcium - 9.4 mg/dL BUN (09/11/2023) ???BUN - 9 mg/dL CBC (09/20/2023) ???WBC - 9.8 k/mm3???RBC - 4.60 m/mm3???Hgb - 12.2 Gm/dL???Hct - 38.6 %???MCV - 83.9 femtoliters???MCH - 26.5 pg???MCHC - 31.6 g/dL???Platelet Count - 367 k/mm3???RDW-SD - 49.7 femtoliters???MPV - 10.7 femtoliters???Nucleated RBC (Automated) - 0.0 #/100 WBC'S???Abs. NRBC - 0.0 k/mm3 CBC w/ Differential (09/12/2023) ???WBC - 9.6 k/mm3???RBC - 5.09 m/mm3???Hgb - 13.2 Gm/dL???Hct - 42.6 %???MCV - 83.7 femtoliters???MCH - 25.9 pg???MCHC - 31.0 g/dL???Platelet Count - 398 k/mm3???RDW-SD - 48.7 femtoliters???MPV - 10.5 femtoliters???Nucleated RBC (Automated) - 0.0 #/100 WBC'S???Abs. NRBC - 0.0 k/mm3???Abs. Neut - 6.1 k/mm3???Abs. Lymph - 2.4 k/mm3???Abs. Kaufman - 0.9 k/mm3???Abs. Eo - 0.1 k/mm3???Abs. Baso - 0.0 k/mm3???Neut % - 63.4 %???Lymph % - 25.2 %???Kaufman % - 9.7 %???Eos % - 1.1 %???Baso % - 0.3 %???Imm Gran - 0.3 %???Abs. Imm Gran - 0.0 k/mm3 Comprehensive Metabolic Panel (09/12/2023) ???Sodium - 143 mmol/L???Potassium - 3.9 mmol/L???Chloride - 106 mmol/L???Bicarbonate Level - 23 mmol/L???Anion Gap - 14???Glucose Level - 157 mg/dL???BUN - 8 mg/dL???Creatinine-Blood - 0.7 mg/dL???Estimated GFR Creatinine - 101 ML/MIN/1.73 M2???Calcium - 9.2 mg/dL???Protein, Total - 6.5 Gm/dL???Alb umin - 4.1 Gm/dL???AG Ratio - 1.7???Alkaline Phosphatase - 102 units/L???AST (SGOT) - 22 units/L???ALT (SGPT) - 21 units/L???Bilirubin, Total - 0.4 mg/dL COVID-19, RSV, and Flu A/B, Rapid PCR (08/26/2023) ???Influenza A PCR - NEGATIVE???Influenza B PCR - NEGATIVE???RSV PCR - NEGATIVE???COVID-19 PCR Specimen Source - NASAL???COVID-19 PCR Result - NEGATIVE Creatinine (09/11/2023) ???Creatinine-Blood - 0.7 mg/dL???Estimated GFR Creatinine - 95 ML/MIN/1.73 M2 Electrolytes (09/11/2023) ???Sodium - 141 mmol/L???Potassium - 4.9 mmol/L???Chloride - 102 mmol/L???Bicarbonate Level - 28 mmol/L???Anion Gap - 11 Ethanol Level (08/26/2023) ???Ethanol, Serum or Plasma - NONE DETECTED FREE T4 (08/26/2023) ???Free T4 - 1.23 ng/dL Glucose Level (09/11/2023) ???Glucose Level - 145 mg/dL GLUCOSE POC (09/20/2023) ???Glucose, POC - 119 mg/dL Wink Level (09/11/2023) ? ?Wink Level - <0.1 mmol/L Total Bilirubin (09/11/2023) ???Bilirubin, Total - 0.5 mg/dL TSH (09/11/2023) ???TSH - 3.45 uIU/mL TSH with T4 Reflex (Adults Only) (08/26/2023) ???TSH - 5.41 uIU/mL Urinalysis w/hold for Urine Culture (08/26/2023) ???Appear/Color, Urine - LIGHT YELLOW???Specific [place], Urine - 1.023???pH, Urine - 6.5???Albumin, Urine - TRACE???Glucose, Urine - NEGATIVE???Ketones, Urine - NEGATIVE???Bilirubin, Urine - NEGATIVE???Hemoglobin, Urine - NEGATIVE???Nitrite, Urine - NEGATIVE???Leukocyte, Urine - NEGATIVE???Urobilin ogen - NORMAL???WBC's, Urine - 2 /HPF???RBC's, Urine - 1 /HPF???Bacteria - SLIGHT???Squamous Epith - 1 /HPF???Mucus - SLIGHT???Hold Urine Culture - Testing available 48 hours from time of collection. Allergies (NKA means No Known Allergies) barb??(rash) amoxicillin??(unknown) Abilify??(NMS) Effexor??(RASH, clonazepam, RASH) Haldol??(drooling tonhue swelling ? NMS with inc cpk) Seroquel XR??(Vitamin D allergy, Vitamin D allergy) Vitamin D3??(50k dose) azithromycin clonazepam??(RASH) doxycycline hyclate hydrOXYzine levofloxacin??(lip swelling) sulfamethoxazole-trimethoprim??(rash) Problems Active Problems??(19) Acne vulgaris?? Adult-onset obesity, Metabolic Syndrome?? [facility] Family Assessment Worker Lisbet Serrano for [facility] [phone]?? Bipolar affective disorder, currently manic, severe, with psychosis?? Chronic back pain?? Depression, Major, w/ catatonia during exac, ongoing ECT tx's?? Diabetes mellitus?? Hypertension?? Hypothyroidism?? Insomnia due to mental disorder?? Iron deficiency anemia?? Malignant neuroleptic syndrome, On abilify and haldol in 02/01/06 to 04/19/06?? Multiple skin tags?? Neuropathy R>L, s/p EMG at [facility], s/p steroid injection?? Obesity?? Psychophysiologic insomnia?? Severe obesity (BMI 35.0-39.9) with comorbidity?? Snoring?? Thrombocytosis s/p eval by Dr. Silva, observation?? Education Materials Below is the list of Educational Leaflet Providered with your Discharge Instructions. Valuables and Belongings I fully understand and agree that [facility] accepts no responsibility for all my personal property including clothing, toilet articles, radios, jewelry, dentures, hearing aids, rings, money, or any other property that is in my possession or is brought to me after admission. I understand certain valuables may be placed in a hospital safe for a short period of time. I understand that the hospital is not liable for loss or damage due to accident, fire, or other natural occurrence while said property is in the safe. I accept full responsibility for any personal property that I keep with me, and will not hold the hospital responsible in case of loss or disappearance. I acknowledge that i have been encouraged to send valuables and belongings home. ?? Review of Valuable and Belonging List: With patient Disposition of Belongings: Valuables Locked Possessions released to: Possitions went to [id number] with patient. Date for Pt to Sign Valuables/Belongings: 09/19/23 16:46:00 ?? Other Discharge Information ? Pulmonary Rehab Status?? Pulmonary Rehab Discharge Status?? Respiratory Rate: 17 br/min ? Common Emergency Awareness Tips IS IT A STROKE? Act FAST and Check for these signs: FACE Does the face look uneven? ARM Does one arm drift down? SPEECH Does their speech sound strange? TIME Call at any sign of stroke ?? Heart Attack Signs Chest discomfort: Most heart attacks involve discomfort in the center of the chest and lasts more than a few minutes, or goes away and comes back. It can feel like uncomfortable pressure, squeezing, fullness or pain. Discomfort in upper body: Symptoms can include pain or discomfort in one or both arms, back, neck, jaw or stomach. Shortness of breath: With or without discomfort. Other signs: Breaking out in a cold sweat, nausea, or lightheaded. Remember, MINUTES DO MATTER. If you experience any of these heart attack warning signs, call to get immediate medical attention! ?? Smoking can increase your chances of developing chronic health problems and can cause harmful effects to other family members in your house. If you smoke, you are strongly encouraged to quit. Please call [employer] at [phone] or [phone] ([phone]) or log in to [email or web address] for referrals to smoking cessation programs. ?? 693 Suicide & Crisis Lifeline is available 25/03 if you or someone you know needs to find a reason to keep living. By calling 082 you'll be connected to a skilled, trained counselor at a crisis center in your area. INPATIENT DISCHARGE INSTRUCTIONS SIGNATURE PAGE TRELL MARTINEZ Location:[facility] [place] Registration Date and Time:09/10/2023 23:34 EST Primary Care Physician: Sj Guzman NP, Attending Physician: Linda Nuñez MD, I TRELL MARTINEZ, have received the above patient education materials/instructions and have verbalized understanding. If ambulance or transport services are being used I further acknowledge beinggiven a choice of service. ?? If you need to contact me, please call me at this number: . Patient/Varnish Blender Name: Patient/Varnish Blender Signature: Relationship to Patient: Witness Name/Signature: Date: * Kristin Spencer MD H: PERFORM, MODIFY, MODIFY Event Display: Discharge/Transfer Note Hospital Authored Date: [id number] Patient: ??TRELL MARTINEZ ? Age:??57 Years?Sex:??Female?:??1965?? Patient Information Discharge Location: [facility] Primary Care Physician: Sj Guzman NP Admit Date/Time: 09/10/23 23:34 Discharge Disposition Discharge Disposition: Home: No Services Discharge Diagnosis Bipolar 1 disorder (F31.9) Diabetes (E11.9) Hypertension (I10) Hypothyroid (E03.9) Mutism (R47.01) Noncompliance with medication regimen (Z91.148) Catatonia _ Discharge Medications Amlodipine (amLODIPine 5 mg oral tablet)?5?Milligram?1?tablet?By Mouth?Daily Atorvastatin (atorvastatin 10 mg oral tablet)?1?tab(s)?10?Milligram?By Mouth?Daily Benzonatate (benzonatate 200 mg oral capsule)?1?capsule?200?Milligram?By Mouth?3 times a day?as needed?Cough Carvedilol (carvedilol 3.125 mg oral tablet)?3.125?Milligram?1?tablet?By Mouth?2 times a day DiphenhydrAMINE (Banophen 50 mg oral capsule)?1?capsule?50?Milligram?By Mouth?Every 6 hours Gabapentin (gabapentin 100 mg oral capsule)?100?Milligram?1?capsule?By Mouth?Daily at bedtime Levothyroxine (levothyroxine 0.088 mg oral tablet)?1?tab(s)?88?Microgram?By Mouth?Daily?replaces 112mcg dose! Wink (lithium 150 mg oral capsule)?1?capsule?150?Milligram?By Mouth?Daily in AM Lorazepam (Ativan 2 mg oral tablet)?1?tab(s)?2?Milligram?By Mouth?2 times a day Lorazepam (LORazepam 2 mg oral tablet)?TAKE 1 TABLET BY MOUTH TWICE DAILY NEEDED. DO NOT DISPENSE BEFORE THE DUE DATE Metformin (metFORMIN 500 mg oral tablet)?1?tab(s)?500?Milligram?By Mouth?2 times a day Mirtazapine (mirtazapine 7.5 mg oral tablet)?TAKE 1 TABLET BY MOUTH AT BEDTIME Naproxen?By Mouth Pantoprazole (Protonix 40 mg oral delayed release tablet)?1?tab(s)?40?Milligram?By Mouth?Daily Senna (Senna 8.6 mg oral tablet)?8.6?Milligram?1?tab(s)?By Mouth?Daily at bedtime Zolpidem (zolpidem 10 mg oral tablet)?TAKE 1 TABLET BY MOUTH AT BEDTIME ? Medications Started None Medications Discontinued None Doses Changed Amlodapine Carvedilol PCP Follow-Up/Heads-Up 1. ??During patient's hospitalization, she??had decreased dosing of lamberts being from 5 mg to 2.5mg.?? Can consider titrating back up based on blood pressures.?? Patient??also of increased dose ofcarvedilol from 3.125 mg twice daily to 6.25 mg twice daily. 2.?? On review, patient??was continued on 112 mcg of levothyroxine??while in the hospital, on review TSH??was??appropriate. ??Continued patient on??112??mcg dose.?On review, looks like patient wasrecently supposed to??decrease to 88 mcg. ??Can consider doing that based on??reassessment??of thyroid function. 3. ??Patient was admitted for??catatonia??that was treated with??Ativan while in the hospital. ??Psychiatry followed??and??cleared from their standpoint. ??Patient was discharged on home??Ativan doseof 2 mg twice daily Hospital Course This is a 57-year-old female, with past medical history significant for bipolar 1 disorder with psychotic features, catatonia with treatment with ECT in the past, who initially presented on 08/26 dueto concern for catatonia, patient has been in the ED awaiting inpatient psych placement, and has been being managed for catatonia with Ativan. There was concern while she was in the ED that she was not taking her scheduled ativan and other medications. She was admitted to the floor on 09/11. ?? While on the floor, patient was taking her ativan. Psychiatru re-evaluated patient does not currently have any signs of acute catatonia, and from a psych standpoint cleared. ?? Given she was cleared by psych and had a negative medical work-up patient was discharged home. She was discharged with instructions to continue ativan 2 mg BID (per psych). ?? Medical workup on 09/11 showing normal CBC with differential, normal CMP, TSH normal, lithium level less than 0.1 (consistent with medication refusal while in the hospital), and normal ammonium. ?? History of bipolar 1 disorder with psychotic features, on lithium History of catatonia requiring ECT treatment in the past Presenting on 08/26 with mutism and concerning features for catatonia. Patient has been in the ED waiting inpatient psych placement and was admitted to the medical service on the evening of 09/11. ?? Recommendations: ??-Continue patient on home Ativan dose, Ativan 2 mg twice daily ? Diabetes (E11.9): Continue Metformin (home med) ? Hypertension (I10): ??Continue??amlodipine??2.5 mg daily. ??At home was taking 5 mg.?? Can discuss with PCP about whether or not you want to increase that back up??based on blood pressures. Carvedilol dose was increased??from 3.125 mg twice daily to 6.25 mg twice daily??while in the hospital. ??Patient was discharged on??prescription. ? Hypothyroid (E03.9): ??Continue levothyroxine??112 mcg daily. ? Objective Assessment and Plan See above ?? Vital Signs?? Temperature: 97.7 DegF (09/13/23 08:00:00) Temperature Route: Oral (09/13/23 08:00:00) Pulse Rate: 77 bpm (09/13/23 08:00:00) Respiratory Rate: 18 br/min (09/13/23 08:00:00) Systolic Blood Pressure: 126 mm Hg (09/13/23 08:00:00) Diastolic Blood Pressure: 71 mm Hg (09/13/23 08:00:00) Blood pressure sites: Arm, right (09/13/23 08:00:00) Mean Arterial Pressure: 104 mm Hg (09/12/23 21:09:00) Pulse Pressure: 55 mm Hg (09/13/23 08:00:00) Oxygen Saturation: 94 % (09/13/23 08:00:00) Mode of Delivery (Oxygen): Room air (09/13/23 08:00:00) Early Warning Score: 4 (09/13/23 08:44:08) ? . Physical Exam General:??No acute distress Respiratory:??Clear to auscultation bilaterally, no increased work of breathing Cardiovascular:??Normal rate, regular rhythm, no murmurs, peripheral pulses intact Neurologic:??Alert & Oriented, moving all extremities spontaneously Consultants Psychiatry - Kena Ramos MD Pending Results Add On Lab Order ordered on 08/28/2023 Complete Urinalysis ordered on 09/11/2023 Follow-Up Appointments Added Follow Up ?Time Frame ?Comments Megan BARRIGA, Sj Monroe?1-2 day: call to discuss follow up visit Patient Instructions TO DO:?? - Please continue ativan??2 mg BID?? Home Health Face to Face ^HomeHealthFTF Results Discharge Labs BLOOD COUNT & DIFF WBC 9.6 k/mm3 ()?? 09/12/2023 05:34 RBC 5.09 m/mm3 ()?? 09/12/2023 05:34 Hgb 13.2 Gm/dL ()?? 09/12/2023 05:34 Hct 42.6 % ()?? 09/12/2023 05:34 MCV 83.7 femtoliters ()?? 09/12/2023 05:34 MCH 25.9 pg (Low)?? 09/12/2023 05:34 MCHC 31.0 g/dL (Low)?? 09/12/2023 05:34 Platelet Count 398 k/mm3 ()?? 09/12/2023 05:34 RDW-SD 48.7 femtoliters (High)?? 09/12/2023 05:34 MPV 10.5 femtoliters ()?? 09/12/2023 05:34 Nucleated RBC (Automated) 0.0 #/100 WBC'S ()?? 09/12/2023 05:34 Abs. NRBC 0.0 k/mm3 ()?? 09/12/2023 05:34 Abs. Neut 6.1 k/mm3 ()?? 09/12/2023 05:34 Abs. Lymph 2.4 k/mm3 ()?? 09/12/2023 05:34 Abs. Kaufman 0.9 k/mm3 ()?? 09/12/2023 05:34 Abs. Eo 0.1 k/mm3 ()?? 09/12/2023 05:34 Abs. Baso 0.0 k/mm3 ()?? 09/12/2023 05:34 Neut % 63.4 % ()?? 09/12/2023 05:34 Lymph % 25.2 % ()?? 09/12/2023 05:34 Kaufman % 9.7 % ()?? 09/12/2023 05:34 Eos % 1.1 % ()?? 09/12/2023 05:34 Baso % 0.3 % ()?? 09/12/2023 05:34 Imm Gran 0.3 % ()?? 09/12/2023 05:34 Abs. Imm Gran 0.0 k/mm3 ()?? 09/12/2023 05:34 ?? CHEM GENERAL Sodium 143 mmol/L ()?? 09/12/2023 05:34 Potassium 3.9 mmol/L ()?? 09/12/2023 05:34 Chloride 106 mmol/L ()?? 09/12/2023 05:34 Bicarbonate Level 23 mmol/L ()?? 09/12/2023 05:34 Anion Gap 14 ()?? 09/12/2023 05:34 Glucose Level 157 mg/dL (High)?? 09/12/2023 05:34 Glucose, POC 149 mg/dL (High)?? 09/13/2023 06:51 BUN 8 mg/dL ()?? 09/12/2023 05:34 Creatinine-Blood 0.7 mg/dL ()?? 09/12/2023 05:34 Estimated GFR Creatinine 101 ML/MIN/1.73 M2 ()?? 09/12/2023 05:34 Calcium 9.2 mg/dL ()?? 09/12/2023 05:34 Protein, Total 6.5 Gm/dL ()?? 09/12/2023 05:34 Albumin 4.1 Gm/dL ()?? 09/12/2023 05:34 AG Ratio 1.7 ()?? 09/12/2023 05:34 Alkaline Phosphatase 102 units/L ()?? 09/12/2023 05:34 AST (SGOT) 22 units/L ()?? 09/12/2023 05:34 ALT (SGPT) 21 units/L ()?? 09/12/2023 05:34 Bilirubin, Total 0.4 mg/dL ()?? 09/12/2023 05:34 ?? ENDOCRINE/TUMOR MARKER TSH 3.45 uIU/mL ()?? 09/11/2023 09:10 Free T4 1.23 ng/dL ()?? 08/26/2023 03:32 ?? MISC. CHEMISTRY Ammonia, Venous 26 ??mole/L ()?? 09/11/2023 09:10 ? TOXICOLOGY/TDM Ethanol, Serum or Plasma NONE DETECTED mg/dL ()?? 08/26/2023 03:32 Wink Level <0.1 mmol/L (Low)?? 09/11/2023 09:10 ?? UA/URINALYSIS Appear/Color, Urine LIGHT YELLOW ()?? 08/26/2023 03:59 Specific [place], Urine 1.023 ()?? 08/26/2023 03:59 pH, Urine 6.5 ()?? 08/26/2023 03:59 Albumin, Urine TRACE (Abnormal)?? 08/26/2023 03:59 Glucose, Urine NEGATIVE ()?? 08/26/2023 03:59 Ketones, Urine NEGATIVE ()?? 08/26/2023 03:59 Bilirubin, Urine NEGATIVE ()?? 08/26/2023 03:59 Hemoglobin, Urine NEGATIVE ()?? 08/26/2023 03:59 Nitrite, Urine NEGATIVE ()?? 08/26/2023 03:59 Leukocyte, Urine NEGATIVE ()?? 08/26/2023 03:59 Urobilinogen NORMAL mg/dL ()?? 08/26/2023 03:59 WBC's, Urine 2 /HPF ()?? 08/26/2023 03:59 RBC's, Urine 1 /HPF ()?? 08/26/2023 03:59 Bacteria SLIGHT HPF (Abnormal)?? 08/26/2023 03:59 Squamous Epith 1 /HPF ()?? 08/26/2023 03:59 Mucus SLIGHT /LPF ()?? 08/26/2023 03:59 Hold Urine Culture Testing available 48 hours from time of collection. ()?? 08/26/2023 03:59 ? VIROLOGY Influenza A PCR NEGATIVE ()?? 08/26/2023 05:49 Influenza B PCR NEGATIVE ()?? 08/26/2023 05:49 RSV PCR NEGATIVE ()?? 08/26/2023 05:49 COVID-19 PCR Specimen Source NASAL ()?? 08/26/2023 05:49 COVID-19 PCR Result NEGATIVE ()?? 08/26/2023 05:49 ?Patient seen and discussed with attending physician Dr. Hill ?? Kristin Spencer MD #[id number] Med-Peds, PGY-4 _ minutes spent on discharge * Johanna WIGGINS, Kristin Monique: PERFORM Event Display: Discharge/Transfer Note Hospital Authored Date: [id number] This will serve as a prognosis today.?? Did not discharge patient given??concern that patient has become more paranoid??and??not making??as much sense as on 09/12.?? Given concern, had??psychiatry??reevaluate patient. ?? Of note, also discussed with patient's??brother at bedside??who??has reported significant concerns as well and does not feel??that she is safe at this time to return home.?? Reports that??on 09/12, patient??was making??phone calls to family members saying that she was going to??harm herself by??jumping off of a building.?? He also expressed concerns about taking care of her at home as often times she??does not take her medications.?? Additionally, expressed concern for her having her phone??in the hospital as??she has been calling??multiple family members??and telling them that??some of the things have been stolen which is caused lots of problems within their own family. ?? Plan: -Will have psychiatric team reevaluate patient given the above concern * Sergio WIGGINS, Shiva Aguilera: PERFORM Event Display: Discharge/Transfer Note Hospital Authored Date: [id number] Attending Attestation: I have??seen and evaluated??TRELL MARTINEZ, on 09/14/23. ??I have??reviewed the patient???s medical history, findings on examination, diagnosis, and treatment. I have discussed the case and its management with the resident and agree with the findings and plan as documented in the resident???s note.? _ ? Patient Care team information Care Team Personnel Name: Allie Ndiaye RN Position: S RN Member Role: Primary Care Nurse Name: Emerita Burgos RN Position: S RN Member Role: Primary Care Nurse Name: Nita Leigh RN Position: [facility] OB RN Member Role: Primary Care Nurse Name: Janie Pandya RN Position: S RN Member Role: Primary Care Nurse Name: Lisbet Omer RN Position: S RN Member Role: Primary Care Nurse Name: Megan TRUCK DRIVER TEAMSTER, Sj Monroe Position: Reference Physician Member Role: PCP Address: Address: [address] [place] [address]- Care Team Related Persons Name: CURTIS MARTINEZ Address: home [address] [place] [id number] Name: SARTHAK MARTINEZ Address: home [address] [place] [address]
--- OUTSIDE RECORDS SUMMARY | 2023-12-04 17:33 | XMS_ITS | Continuity of Care Document ---
Author Name Unknown Organization [facility] Address [address] [place] [id number]- Care Team Providers Care Director Of Clinical Trials Name Role Phone Megan INTELLECTUAL PROPERTY MANAGER, Sj Monroe Primary Care Physi mago [place] [facility] [place] - 11/17/[address] [address] Attending Physician: Chayo Mcclellan Admitting Physician: AdmChayo bueno Referring Physician: AdmtrChayo Allergies, Adverse Reactions, Alerts Substance Reaction Severity [...] 1 Refills, Maintenance, 09/17/21 16:10:00 EST, Capsule, [id number], Partial fill upon patient request if the [...] 06/27/10 Active Neuropathy R>L, s/p EMG at [facility], s/p steroid injection Confirmed Active Obese class II Confirmed Active Obesity Confirmed Active [facility] Coremaker Bench Lisbet Serrano [facility] [phone] Confirmed Active Psychophysiologic insomnia Confirmed Active Snoring Confirmed Active Thrombocytosis s/p eval by Dr. Silva, observation Confirmed Active 1+ Hx of Gestational Diabetes and strong Family Hx. Social History Social History Type Response Smoking Status Never smoker; Tobacc o user in household: No entered on: 04/22/18 Sex Patient Care team information Care Team Personnel Name: Nicole RN, Trinh Position: [facility] AMB Nurse Member Role: Primary Care Nurse Name: Nita Leigh RN Position: [facility] OB RN Member Role: Primary Care Nurse Name: Janie Pandya RN Position: [facility] RN Member Role: Primary Care Nurse Name: Megan BARRIGA, Sj Monroe Position: Reference Physician Member Role: PCP Address: Address: [address] [place] [address]- Care Team Related Persons Name: CURTIS ALFRED Address: home [address] [place] [address] Name: SARTHAK ALFRED Address: home [address] [place] [address]
--- OUTSIDE RECORDS SUMMARY | 2023-12-04 17:33 | XMS_ITS | Continuity of Care Document ---
Author Name Unknown Organization [facility] Address [address] [place] [address]- Care Team Providers Care Pillowcase Cutter Name Role Phone Megan BARRIGA, Sj Monroe Primary Care Physi mago [place] [facility] [place] Date(s): 09/27/22 - 11/06/[address] [address]- Encounter Diagnosis Cervicalgia(Final) - Discharge Disposition: A-D/C Home Attending Physician: Megan BARRIGA, Sj Monroe Admitting Physician: Sj Guzman NP Referring Physician: Megan BARRIGA, Sj Monroe Allergies, Adverse Reactions, Alerts Substance Reaction Severity Status amoxicillin unknown Persistent Moderate Active Abilify NMS Active Vitamin D3 50k dose Active barb rash Persistent Moderate Active azithromycin Active Seroquel XR Vitamin D allergy Vitamin D allergy Active sulfamethoxazole-trimethoprim rash Active clonazepam RASH Active hydrOXYzine Active levofloxacin lip swelling Active Haldol drooling tonhue swel ling ? NMS with inc cpk Active Effexor RASH clonazepam RASH Active doxycycline hyclate Active Immunizations Given and Recorded Vaccine Date [...] 1 Refills, Maintenance, 09/17/21 16:10:00 EST, Capsule, [facility] #[id number], Partial fill upon patient request if the [...] 06/27/10 Active Neuropathy R>L, s/p EMG at [facility], s/p steroid injection Confirmed Active Obese class II Confirmed Active Obesity Confirmed Active [facility] Hash [place] Lisbet Serrano [facility] [phone] Confirmed Active Psychophysiologic insomnia Confirmed Active Snoring Confirmed Active Thrombocytosis s/p eval by Dr. Silva, observation Confirmed Active 1+ Hx of Gestational Diabetes and strong Family Hx. Social History Social History Type Response Smoking Status Never smoker; Tobacc o user in household: No entered on: 04/22/18 Sex Patient Care team information Care Team Personnel Name: Nicole RN, Trinh Position: [facility] AMB Nurse Member Role: Primary Care Nurse Name: Nita Leigh RN Position: [facility] OB RN Member Role: Primary Care Nurse Name: Janie Pandya RN Position: [facility] RN Member Role: Primary Care Nurse Name: Sj Guzman NP Position: Reference Physician Member Role: PCP Address: Address: [address] [place] [address]- Care Team Related Persons Name: CURTIS ALFRED Address: home [address] [place] [address] Name: SARTHAK ALFRED Address: home [address] [place] [address]
--- OUTSIDE RECORDS SUMMARY | 2023-12-04 17:33 | XMS_ITS | Continuity of Care Document ---
Author Name Unknown Organization [facility] ter Address [address] [place] [address]- Care Team Providers Care Latex Dipper Name Role Phone Not on Staff, PCP Primary Care Physician Unavail able Encounter [facility] Date(s): 08/17/19 - 08/17/[address] [address]- [facility] Attending Physician: Jeimy RETIREMENT ADMINISTRATOR, Noelle Allergies, Adverse Reactions, Alerts Substance Reaction Severity [...] ercy, s/p steroid injection(Confirmed) Active Obesity(Confirmed) Active [facility] Vacation Planner Lisbet Serrano for [facility] [phone](Confirmed) Active Thrombocytosis s/p eval by Jagjit Silva, observation(Confirmed) Active 1+ Hx of Gestational Diabetes and strong Family Hx. Social History Social History Type Response Smoking Status Never smoker; Tobacc o user in household: No entered on: 04/22/18 Sex
--- OUTSIDE RECORDS SUMMARY | 2023-12-04 17:33 | XMS_ITS | Continuity of Care Document ---
Author Name Unknown Organization [facility] Address [address] [place] [address]- Care Team Providers Care Filer And Sander Name Role Phone Jeff James MD, Yolande Primary Care Physician [place] [facility] [place] Date(s): 09/14/21 - 10/14/21 [facility] [address] [place] [address]- Attending Physician: Chayo Mcclellan Admitting Physician: Admtr, Chayo Referring Physician: Admtr, [...] 1 Refills, Maintenance, 09/17/21 16:10:00 EST, Capsule, [facility] #[id number], Partial fill upon patient request if the [...] Active Obese class II(Confirmed) Active Obesity(Confirmed) Active [facility] Vp Ancillary Lisbet Serrano for [facility] [phone](Confirmed) Active Thrombocytosis s/p eval by Jagjit Silva, observation(Confirmed) Active 1+ Hx of Gestational Diabetes and strong Family Hx. Social History Social History Type Response Smoking Status Never smoker; Tobacc o user in household: No entered on: 04/22/18 Sex
--- OUTSIDE RECORDS SUMMARY | 2023-12-04 17:33 | XMS_ITS | Continuity of Care Document ---
Author Name Unknown Organization [facility] Address [address] [place] [address]- Care Team Providers Care Ball Warper Tender Name Role Phone Megan BARRIGA, Sj Monroe Primary Care Physi mago [place] [facility] [place]): [place]23 - 07/09/23 [facility] [address] [place] [address]- Encounter Diagnosis Tendinitis of right wrist(Discharge Diagnosis) - 07/02/23 Attending Physician: Maira Lee MD Referring Physician: Sj Guzman NP Allergies, [...] Gi isai 1Admin Note: vis given Medications amLODIPine 5 mg oral tablet 5 [...] opioid drug. Start Date: 09/14/21 Status: Ordered atorvastatin 10 mg oral tablet 1 tablet = 10 mg, By Mouth, Daily, # 30 tablet, 0 Refills, Maintenance, 07/02/23 9:53:00 EDT, Partial fill upon patient request if the prescription is for a schedule II opioid drug. Start Date: 07/02/23 Status: Ordered Banophen 50 mg oral capsule [...] 1 Refills, Maintenance, 09/17/21 16:10:00 EST, Capsule, [id number], Partial fill upon patient request if the [...] AT BEDTIME Start Date: 09/17/21 Status: Ordered Naproxen By Mouth, 0 Refills, Maintenance, 07/02/23 9:54:00 EDT, Partial fill upon patient request if the prescription is for a schedule II opioid drug. Start Date: 07/02/23 Status: Ordered Protonix 40 mg oral delayed [...] 06/27/10 Active Neuropathy R>L, s/p EMG at [facility], s/p steroid injection Confirmed Active Obesity Confirmed Active [facility] Finisher Operator Lisbet Serrano [facility] [phone] Confirmed Active Psychophysiologic insomnia Confirmed Active Severe obesity (BMI 35.0-39.9) with comorbidity Confirmed Active Snoring Confirmed Active Thrombocytosis s/p eval by Dr. Silva, observation Confirmed Active 1+ Hx of Gestational Diabetes and strong Family Hx. Diagnosis Diagnosis Type Effective Dates Health Status Clinical Service Informant Tendinitis of right wrist Discharge Diagnosis 07/02/23 Vital Signs Most recent to oldest [Reference Range]: 1 Height 155 cm (07/02/23 9:56 AM) Weight 91 kg (07/02/23 9:56 AM) Oxygen Saturation [94-100 %] 98 % (07/02/23 9:56 AM) Pulse Rate [55-90 bpm] 74 bpm (07/02/23 9:56 AM) Body Mass Index [18.5-24.99 kg/m2] 37.88 kg/m2 *>HHI* (07/02/23 9:56 AM) Blood Pressure [90-138/55-84 mm Hg] 132/ 71mm Hg (07/02/23 9:56 AM) Respiratory Rate [16-30 br/min] 18 br/mi n (07/02/23 9:56 AM) Temperature [96.8-100.4 DegF] 97.8 DegF (07/02/23 9:56 AM) Mode of Delivery (Oxygen) Room air (07/02/23 9:56 AM) Blood pressure sites Arm, left (07/02/23 9:56 AM) Temperature Route Oral (07/02/23 9:56 AM) Dry Weight 91 kg (07/02/23 9:56 AM) Weight Obtained Via Patient/family state d (07/02/23 9:56 AM) Dry Weight Obtained Via Patient/family s tated (07/02/23 9:56 AM) Social History Social History Type Response Smoking Status Never smoker; Tobacc o user in household: No entered on: 04/22/18 Sex Note * Janessa Piper: PERFORM, SIGN, VERIFY Event Display: Patient Education/Instruction Authored Date: [id number] [facility] *[facility] Clinical Summary Name TRELL ALFRED Age 57 Years 1965 PCP Megan MANAGER AGRICULTURE, Sj Monroe PCP Visit Date 07/02/2023 09:42:00 Additional Instructions: Scheduled Appointments?? Future Appointments ?No Future Appointments Scheduled Follow-Up Instructions ?? Diagnosis Other enthesopathies, not elsewhere classified Medications: Please continue your medications until treatment is completed or stopped by your provider. Discuss any questions related to medications with your provider. Medications to Continue with No Changes These medications were not printed or sent to your pharmacy Amlodipine (amLODIPine 5 mg oral tablet) 1 tab(s) Oral Daily. Next Dose: Atorvastatin (atorvastatin 10 mg oral tablet) 1 tab(s) Oral Daily. Next Dose: Benzonatate (benzonatate 200 mg oral capsule) 1 capsule Oral 3 times a day as needed Cough. Refills: 1. Next Dose: Carvedilol (carvedilol 3.125 mg oral tablet) 1 tab(s) Oral twice a day. Next Dose: DiphenhydrAMINE (Banophen 50 mg oral capsule) 1 capsule Oral every 6 hours. Next Dose: Gabapentin (gabapentin 100 mg oral capsule) 1 capsule Oral Daily at Bedtime. Next Dose: Levothyroxine (levothyroxine 0.088 mg oral tablet) 1 tab(s) Oral Daily. replaces 112mcg dose!. Refills: 11. Next Dose: [place] (lithium 300 mg oral capsule) 1 capsule Oral twice a day. Next Dose: [place] (lithium 300 mg oral capsule) 450 Milligram Oral twice a day. Next Dose: Lorazepam (Ativan 2 mg oral tablet) 1 tab(s) Oral twice a day. Next Dose: Lorazepam (LORazepam 2 mg oral tablet) TAKE 1 TABLET BY MOUTH TWICE DAILY NEEDED. DO NOT DISPENSE BEFORE THE DUE DATE. Next Dose: Metformin (metFORMIN 500 mg oral tablet) 1 tab(s) Oral twice a day. Next Dose: Mirtazapine (mirtazapine 7.5 mg oral tablet) TAKE 1 TABLET BY MOUTH AT BEDTIME. Next Dose: Naproxen Oral. Next Dose: Pantoprazole (Protonix 40 mg oral delayed release tablet) 1 tab(s) Oral Daily. Refills: 0. Next Dose: Senna (Senna 8.6 mg oral tablet) 1 tab(s) Oral Daily at Bedtime. Next Dose: Zolpidem (zolpidem 10 mg oral tablet) TAKE 1 TABLET BY MOUTH AT BEDTIME. Next Dose: Allergy Info:?? Seroquel XR; barb; Vitamin D3; Abilify; doxycycline hyclate; Effexor; Haldol; levofloxacin; hydrOXYzine; clonazepam; sulfamethoxazole- trimethoprim; azithromycin; amoxicillin Medications Given This Visit Future Orders ?No future orders Vital Signs Height 155 cm Weight 91 kg BMI 37.88 kg/m2 Blood Pressure 132 mm Hg/71 mm Hg Temperature 97.8 DegF Pulse Rate 74 bpm Respiratory Rate 18 br/min 02 Sat Mode of Delivery 98 %/Room air You can now view a summary of your hospital visit from the comfort of your home through a free online portal called onkea. onkea is a website that allows you to securely view your medical information including discharge summary, medications and follow-up visits. ??You can alsosend a secure electronic message to your doctor???s office to request appointments, renew medications or just ask a question. You can enroll at [email or web address] or register during your next office visit. Disclaimer:?? The information provided is of a general nature and is intended to be used in conjunction with the recommendations and advice of your health care practitioner. ??Every effort has been made to ensure that the information provided is accurate and complete at the time it is provided to you however, as your needs change, or, as new ??information becomes available, different or additional instructions may be required. If you have questions, please consult with your primary care provider or pharmacist, as appropriate. ??This information is not intended to serve as substitution for assessment and evaluation by a qualified health care provider. If you do not have a primary care provider, you may find a [facility] provider by calling [facility] [facility] at [phone]. [facility], in keeping with [facility] guidance, no longer requires face masks for staff, patientsor visitors in most situations. Similar to time spent indoors at other locations, there is the chance that you were exposed to respiratory viruses during your time with us (such as flu or COVID-19).? If you develop symptoms concerning for a viral respiratory infection, please seek testing (and treatment if indicated) from your medical provider or home test kit. For information about the plan of care including goals and instructions for your diagnosis, please see the patient education orders section of this document. Patient Education Materials?? The content of this educational material or handout may have been modified, supplemented, or adapted from its original content and format to support your individualized medical care. Patient Care team information Care Team Personnel Name: Nita Leigh RN Position: [facility] RN Member Role: Primary Care Nurse Name: Jnaie Pandya RN Position: S RN Member Role: Primary Care Nurse Name: Megan BARRIGA, Sj Monroe Position: Reference Physician Member Role: PCP Address: Address: [address] [place] [address]- Care Team Related Persons Name: CURTIS ALFRED Address: home [address] [place] [address] Name: SARTHAK ALFRED Address: home [address] [place] [address]
--- OUTSIDE RECORDS SUMMARY | 2023-12-04 17:33 | XMS_ITS | Continuity of Care Document ---
Author Name Unknown Organization [facility] [employer] Address [address], 4t [place] [address]- Care Team Providers Care Publishing Manager Name Role Phone Megan BARRIGA, Sj Monroe Primary Care Physi mago Encounter [facility] [place] Date(s): 12/28/21 - 04/27/22 [facility] [address] 4th [place] [address]- Attending Physician: Not on Staff, Attending MD Referring Physician: Sj Guzman NP Allergies, [...] 1 Refills, Maintenance, 09/17/21 16:10:00 EST, Capsule, [facility][id number], Partial fill upon patient request if the [...] Active Obese class II(Confirmed) Active Obesity(Confirmed) Active [facility] Animal Pathology Teacher Lisbet Serrano [facility] [phone](Confirmed) Active Thrombocytosis s/p eval by Jagjit Silva, observation(Confirmed) Active 1+ Hx of Gestational Diabetes and strong Family Hx. Social History Social History Type Response Smoking Status Never smoker; Tobacc o user in household: No entered on: 04/22/18 Sex Care Team Personnel Name: Sj Guzman NP Address: [address] [place] [address]
--- OUTSIDE RECORDS SUMMARY | 2023-12-04 17:33 | XMS_ITS | Continuity of Care Document ---
Author Name Unknown Organization [facility] Address [address] [place] [address]- Care Team Providers Care Manager Hospital Name Role Phone Megan BARRIGA, Sj Monroe Primary Care Physi mago Encounter [facility] Date(s): 03/28/23 - 07/26/[address] [address] Attending Physician: Mary Perez MD [...] 1 Refills, Maintenance, 09/17/21 16:10:00 EST, Capsule, [facility] #[id number], Partial fill upon patient request if the [...] 06/27/10 Active Neuropathy R>L, s/p EMG at [facility], s/p steroid injection Confirmed Active Obesity Confirmed Active [facility] Tobacco Packing Machine Operator Lisbet Serrano [facility] [phone] Confirmed Active Psychophysiologic insomnia Confirmed Active Severe [...] Team Personnel Name: Nita Leigh RN Position: [facility] OB RN Member Role: Primary Care Nurse Name: Janie Pandya RN Position: S RN Member Role: Primary Care Nurse Name: Megan BARRIGA, Sj Monroe Position: Reference Physician Member Role: PCP Address: Address: [address] [place] [address]- Care Team Related Persons Name: CURTIS ALFRED Address: home [address] [place] [address] Name: SARTHAK ALFRED Address: home [address] [place] [address]
--- OUTSIDE RECORDS SUMMARY | 2023-12-04 17:33 | XMS_ITS | Continuity of Care Document ---
Author Name Unknown Organization [facility] Address [address] [place] [address]- Care Team Providers Care Faith Healer Name Role Phone Megan BARRIGA, Sj Monroe Primary Care Physi mago Encounter [facility] [place] Date(s): 07/24/22 - 11/07/22 [facility] [address] [place] [address]- Discharge Disposition: A-D/C Home Attending Physician: Mele Tinsley MD Admitting Physician: Mele Tinsley MD Referring Physician: Sj Guzman NP Allergies, [...] 1 Refills, Maintenance, 09/17/21 16:10:00 EST, Capsule, [facility] #[id number], Partial fill upon patient request if the [...] 06/27/10 Active Neuropathy R>L, s/p EMG at [facility], s/p steroid injection Confirmed Active Obese class II Confirmed Active Obesity Confirmed Active [facility] Airplane Pilot Lisbet Serrano [facility] [phone] Confirmed Active Psychophysiologic insomnia Confirmed Active Snoring Confirmed Active Thrombocytosis s/p eval by Dr. Silva, observation Confirmed Active 1+ Hx of Gestational Diabetes and strong Family Hx. Social History Social History Type Response Smoking Status Never smoker; Tobacc o user in household: No entered on: 04/22/18 Sex Patient Care team information Care Team Personnel Name: Nicole RN, Trinh Position: [facility] AMB Nurse Member Role: Primary Care Nurse Name: Nita Leigh RN Position: [facility] OB RN Member Role: Primary Care Nurse Name: Janie Pandya RN Position: [facility] RN Member Role: Primary Care Nurse Name: Sj Guzman NP Position: Reference Physician Member Role: PCP Address: Address: [address] [place] [address]- Care Team Related Persons Name: CURTIS ALFRED Address: home [address] [place] [address] Name: SARTHAK ALFRED Address: home [address] [place] [address]
--- OUTSIDE RECORDS SUMMARY | 2023-12-04 17:33 | XMS_ITS | Continuity of Care Document ---
Author Name Unknown Organization [facility] Address [address] [place] [address]- Care Team Providers Care Distributed Energy Systems Consultant Name Role Phone Megan NEWSPAPER INSERTER, Sj Monroe Primary Care Physi mago Encounter [facility] [place] Date(s): 04/19/23 - 05/25/[address] [address]- Attending Physician: Mary Perez MD Admitting Physician: Mary Perez MD Referring Physician: Mary Perez MD Allergies, Adverse Reactions, Alerts Substance Reaction Severity Status amoxicillin unknown Persistent Moderate Active azithromycin Active clonazepam RASH Active Abilify NMS Active barb rash Persistent Moderate Active Seroquel XR Vitamin D allergy Vitamin D allergy Active sulfamethoxazole-trimethoprim rash Active hydrOXYzine Active levofloxacin lip swelling Active Haldol drooling tonhue swel ling ? NMS with inc cpk Active Effexor RASH clonazepam RASH Active doxycycline hyclate Active Vitamin D3 50k dose Active Immunizations [...] 1 Refills, Maintenance, 09/17/21 16:10:00 EST, Capsule, [facility] #[id number], Partial fill upon patient request if the [...] 06/27/10 Active Neuropathy R>L, s/p EMG at [facility], s/p steroid injection Confirmed Active Obesity Confirmed Active [facility] Die Cast Engineer Lisbet Serrano for [facility] [phone] Confirmed Active Psychophysiologic insomnia Confirmed Active Severe [...] Team Personnel Name: Nita Leigh RN Position: [facility] OB RN Member Role: Primary Care Nurse Name: Janie Pandya RN Position: S RN Member Role: Primary Care Nurse Name: Megan BARRIGA, Sj Monroe Position: Reference Physician Member Role: PCP Address: Address: [address] [place] [address]- Care Team Related Persons Name: CURTIS ALFRED Address: home [address] [place] [address] Name: SARTHAK ALFRED Address: home [address] [place] [address]
--- OUTSIDE RECORDS SUMMARY | 2023-12-04 17:33 | XMS_ITS | Continuity of Care Document ---
Author Name Unknown Organization [facility] Address [address] [place] [address]- Care Team Providers Care Wet Process Technician Name Role Phone Megan RESIDENTIAL INSTALLER, Sj Monroe Primary Care Physi mago En[place] [facility] [place] Date(s): 07/02/23 - 08/01/23 [facility] [address] [place], [place] [address] Attending Physician: Chayo Mcclellan Admitting Physician: Chayo Mcclellan Referring Physician: AdmChayo bueno Allergies, Adverse Reactions, Alerts Substance Reaction Severity [...] 1 Refills, Maintenance, 09/17/21 16:10:00 EST, Capsule, [email or web address][id number], Partial fill upon patient request if the [...] 06/27/10 Active Neuropathy R>L, s/p EMG at [facility], s/p steroid injection Confirmed Active Obesity Confirmed Active [facility] Ear Nose Throat Surgeon Lisbet Serrano [facility] [phone] Confirmed Active Psychophysiologic insomnia Confirmed Active Severe [...] Team Personnel Name: Nita Leigh RN Position: [facility] OB RN Member Role: Primary Care Nurse Name: Janie Pandya RN Position: S RN Member Role: Primary Care Nurse Name: Megan BARRIGA, Sj Monroe Position: Reference Physician Member Role: PCP Address: Address: [address] [place] [address]- Care Team Related Persons Name: CURTIS ALFRED Address: home [address] [place] [address] Name: SARTHAK ALFRED Address: home [address] [place] [address]
--- OUTSIDE RECORDS SUMMARY | 2023-12-04 17:33 | XMS_ITS | Continuity of Care Document ---
Author Name Unknown Organization [facility] Address [address] [place] [address]- Care Team Providers Care Engraving Supervisor Name Role Phone Megan BARRIGA, Sj Monroe Primary Care Physi mago Encounter [facility] Date(s): 12/31/22 - 02/13/23 [facility] [address] [address] Attending Physician: Mary Perez MD Admitting Physician: Mary Perez MD Allergies, Adverse Reactions, Alerts Substance Reaction Severity Status amoxicillin unknown Persistent Moderate Active Abilify NMS Active azithromycin Active Seroquel XR Vitamin D allergy Vitamin D allergy Active sulfamethoxazole-trimethoprim rash Active clonazepam RASH Active hydrOXYzine Active levofloxacin lip swelling Active Haldol drooling tonhue swel ling ? NMS with inc cpk Active Effexor RASH clonazepam RASH Active doxycycline hyclate Active Vitamin D3 50k dose Active barb [...] 1 Refills, Maintenance, 09/17/21 16:10:00 EST, Capsule, [facility] #[id number], Partial fill upon patient request if the [...] 06/27/10 Active Neuropathy R>L, s/p EMG at [facility], s/p steroid injection Confirmed Active Obesity Confirmed Active [facility] Senior Sql Database Developer Lisbet Serrano [facility] [phone] Confirmed Active Psychophysiologic insomnia Confirmed Active Severe [...] Team Personnel Name: Trinh Rivera RN Position: [facility] AMB Nurse Member Role: Primary Care Nurse Name: Nita Leigh RN Position: [facility] OB RN Member Role: Primary Care Nurse Name: Janie Pandya RN Position: [facility] RN Member Role: Primary Care Nurse Name: Sj Guzman NP Position: Reference Physician Member Role: PCP Address: Address: [address] [place] [address]- Care Team Related Persons Name: CURTIS ALFRED Address: home [address] [place] [address] Name: SARTHAK ALFRED Address: home [address] [place] [address]
--- OUTSIDE RECORDS SUMMARY | 2023-12-04 17:33 | XMS_ITS | Continuity of Care Document ---
Author Name Unknown Organization [facility] Address [address] [place] [address]- Care Team Providers Care Shirt Finisher Name Role Phone Megan BARRIGA, Sj Monroe Primary Care Physi mago [place] [facility] [place]/23 - 07/26/[address] [address] Attending Physician: Chayo Mcclellan Admitting Physician: AdmChayo bueno Referring Physician: Chayo Mcclellan Allergies, Adverse Reactions, Alerts Substance Reaction Severity [...] 1 Refills, Maintenance, 09/17/21 16:10:00 EST, Capsule, [facility] #[id number], Partial fill upon patient request if the [...] 06/27/10 Active Neuropathy R>L, s/p EMG at [facility], s/p steroid injection Confirmed Active Obesity Confirmed Active [facility] Photography Editor Lisbet Serrano [facility] [phone] Confirmed Active Psychophysiologic insomnia Confirmed Active Severe [...] Team Personnel Name: Nita Leigh RN Position: [facility] OB RN Member Role: Primary Care Nurse Name: Janie Pandya RN Position: S RN Member Role: Primary Care Nurse Name: Sj Guzman NP Position: Reference Physician Member Role: PCP Address: Address: [address] [place] [address]- Care Team Related Persons Name: CURTIS ALFRED Address: home [address] [place] [address] Name: SARTHAK ALFRED Address: home [address] [place] [address]
--- NOTE | 2023-12-04 18:22 | PC.NURSE ---
Pt arrived from [facility] to on a 12b at 1806. Pt is uncooperative and is refusing to allow skin check to be performed. Pt claims she's unable to get up from her chair and walk to the treatment room for the skin check because she has many medical problems.
[2023-12-04 18:35] VITALS: BP 165/80; PULSE 84; RESP 18; TEMP 36.9; O2SAT 99
[2023-12-04 19:42] VITALS: BMI 34.3
--- NOTE | 2023-12-04 19:42 | PC.NURSE ---
Skin check complete
[2023-12-05] MEDS: LORazepam 1 MG TABLET PO ×2 (03:25→15:04)
[2023-12-05 06:00] VITALS: BP 156/74; PULSE 79; RESP 14; TEMP 36.8; O2SAT 99
--- NOTE | 2023-12-05 06:20 | PC.ADMIT ---
Aspen is a 58 year old female, indonesian speaking, who was admitted on a 12B to the unit at 1806, diagnosis schizophrenia. She presented to [facility] for evaluation of agitation, delusions and confusion. She has not been taking her meds. She was initially non-verbal. Initially difficult when arrived on the unit according to staff as she declined to have skin check completed. Skin check completed with the assistance of Armenian speaking staff. Declined to participate with safety tool/ALBERTO.
[2023-12-05 07:00] VITALS: BMI 34.3
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
[2023-12-05] MEDS: Acetaminophen 325 MG TABLET 650 MG PO (20:27)
[2023-12-05 21:45] VITALS: BP 142/94; PULSE 99; RESP 20; TEMP 36.8; O2SAT 100
--- NOTE | 2023-12-06 04:38 | PC.NURSE ---
Aspen declined HS medications stating, via career development engineer, that the medications look different then they do at home and she is suspicious that this sign writer hand might be trying to give her different medications. this sign writer hand had opened the medications in front of the patient and repeatedly showed her the medication packages as well as the list of medications in [employer] [facility]. Aspen also stated that she is afraid she will get in trouble if she takes the medications but that she will also get in trouble if she doesn't take the medications. patient held pills in her hand for over 1/2 an hour and repeatedly said she would take them but would only look at them and push them around in her hand. patient reassured that she would not be in trouble if she decided not to take the medications. patient denies all psych symptoms but appears internally preoccupied. she was also noted to be crying softly when this sign writer hand presented her HS medications. monitor for safety, encourage medication compliance, continue Plan of Care
[2023-12-06] MEDS: Levothyroxine Sodium 112 MCG TABLET PO (06:10)
[2023-12-06] MEDS: metFORMIN HCl 500 MG TABLET PO ×2 (08:29→17:40)
[2023-12-06] MEDS: amLODIPine Besylate 5 MG TABLET PO (08:29)
[2023-12-06] MEDS: Pregabalin 100 MG CAPSULE PO ×2 (08:29→21:19)
[2023-12-06] MEDS: Atorvastatin Calcium 10 MG TABLET PO (08:29)
[2023-12-06] MEDS: Lithium Carbonate ER 450 MG TABLET.ER PO ×2 (08:29→21:19)
[2023-12-06] MEDS: Docusate Sodium 100 MG CAPSULE PO (08:29)
[2023-12-06] MEDS: carvediloL 3.125 MG TABLET PO ×2 (08:29→21:20)
[2023-12-06 08:30] VITALS: BP 185/89; PULSE 94; RESP 18; TEMP 36.4; O2SAT 96
[2023-12-06] MEDS: LORazepam 1 MG TABLET PO (08:52)
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
[2023-12-06] MEDS: Melatonin 3 MG TABLET PO (21:20)
[2023-12-06 21:23] VITALS: BP 136/62; PULSE 90; RESP 16; TEMP 36.4; O2SAT 99
[2023-12-07] MEDS: Levothyroxine Sodium 112 MCG TABLET PO (05:56)
[2023-12-07 07:35] VITALS: BP 141/72; PULSE 71; RESP 16; TEMP 36.7; O2SAT 100
[2023-12-07 08:10] LABS: Estimated Average Glucose 151 mg/dL; Hemoglobin A1c % 6.9 % (<6.0)
[2023-12-07 08:25] LABS: Cholesterol 126 mg/dL (<200); HDL Cholesterol 40 mg/dL (>40); LDL Cholesterol Calculated 65 mg/dL (<100); Triglycerides 105 mg/dL (<150)
[2023-12-07 08:39] LABS: Free T4 (Free Thyroxine) 1.25 ng/dL (0.71-1.85); Thyroid Stimulating Hormone 1.98 uIU/mL (0.32-4.0)
[2023-12-07] MEDS: Pregabalin 100 MG CAPSULE PO ×2 (08:51→21:34)
[2023-12-07] MEDS: metFORMIN HCl 500 MG TABLET PO ×2 (08:51→17:49)
[2023-12-07] MEDS: carvediloL 3.125 MG TABLET PO ×2 (08:51→21:34)
[2023-12-07] MEDS: Atorvastatin Calcium 10 MG TABLET PO (08:51)
[2023-12-07] MEDS: Lithium Carbonate ER 300 MG TABLET.ER PO (08:51)
[2023-12-07] MEDS: amLODIPine Besylate 5 MG TABLET PO (08:51)
[2023-12-07] MEDS: Docusate Sodium 100 MG CAPSULE PO (08:51)
[2023-12-07 08:54] LABS: Folate 9.7 ng/mL (> or = 4.0); Vitamin B12 309 pg/mL (200-900)
--- NOTE | 2023-12-07 11:31 | HO.PSYCHPN ---
Subjective Subjective Date of Service: 12/07/23 Reason For Visit: Bipolar Subjective Notes: Conditional Voluntary Interim History: met with patient. Discussed with Nursing. Has been guarded and suspicious. Today reports feeling okay. Main concern is getting in contact with family and friends as she does not have any clothing. Did speak with family member using conventional mortgage underwriter cellphone and felt positive regarding this. Denies suicidal thoughts. Denies hallucinations. Ambivalent about whether she was safe or not here. Medication Compliance: Yes Side effects from medications: No Attending Groups: Intermittent Review of Systems Acute medical concerns: No Review of Systems Review of Systems Nothing acute Mental Status Exam Mental Status Exam Narrative: slightly better self care today, in hospital garb, cooperative. no PMA/PMR. speech incr amount, nml rate, nml loudness, decr latency. thoughts slightly paranoid. affect constricted, anxious, non-labile. mood nervous. no SI/SIBI/HI/AVH expressed. Diagnostics Vital Signs (24Hr): Vital Signs - 24 hr 12/06/23 21:23 12/07/23 07:35 Temperature 97.5 F 98.1 F Pulse Rate 90 71 Respiratory Rate 16 16 Blood Pressure 136/62 141/72 H Pulse Oximetry 99 100 Oxygen Delivery Method Room Air Room Air BMI result Body Mass Index 34.3 Labs Labs: Laboratory Results - last 48 hr 12/07/23 07:42 Estimat Average Glucose 151 Hemoglobin A1c % 6.9 H Triglycerides 105 Cholesterol 126 LDL Cholesterol, Calc 65 HDL Cholesterol 40 L Vitamin B12 309 Folate 9.7 TSH 1.98 Free T4 1.25 Medications Medications Current Medications Acetaminophen (Acetaminophen 325 Mg Tablet) 650 mg PO Q6H PRN PRN Reason: Headache/Pain Mild Scale (1-3) Last Admin: 12/05/23 20:27 Dose: 650 mg Al Hydroxide/Mg Hydroxide (Magnesium Hydrox/Alum Hydrox 30 Ml Oral.Susp) 30 ml PO Q6H PRN PRN Reason: Heartburn/Nausea Amlodipine Besylate (Amlodipine Besylate 5 Mg Tablet) 5 mg PO DAILY [facility]; Protocol Last Admin: 12/07/23 08:51 Dose: 5 mg Atorvastatin Calcium (Atorvastatin Calcium 10 Mg Tablet) 10 mg PO DAILY [facility] Last Admin: 12/07/23 08:51 Dose: 10 mg Carvedilol (Carvedilol 3.125 Mg Tablet) 3.125 mg PO BID [facility]; Protocol Last Admin: 12/07/23 08:51 Dose: 3.125 mg Docusate Sodium (Docusate Sodium 100 Mg Capsule) 100 mg PO DAILY [facility] Last Admin: 12/07/23 08:51 Dose: 100 mg Levothyroxine Sodium (Levothyroxine Sodium 112 Mcg Tablet) 112 mcg PO DAILY@0600 [facility] Last Admin: 12/07/23 05:56 Dose: 112 mcg [place] Carbonate ([place] Carbonate Er 450 Mg Tablet.Er) 450 mg PO BEDTIME [facility] Last Admin: 12/06/23 21:19 Dose: 450 mg [place] Carbonate ([place] Carbonate Er 300 Mg Tablet.Er) 300 mg PO DAILY [facility] Last Admin: 12/07/23 08:51 Dose: 300 mg Lorazepam (Lorazepam 1 Mg Tablet) 1 mg PO DAILY PRN PRN Reason: severe anxiety Last Admin: 12/06/23 08:52 Dose: 1 mg Magnesium Hydroxide (Milk Of Magnesia 30 Ml Oral.Susp) 30 ml PO DAILY PRN PRN Reason: Constipation Melatonin (Melatonin 3 Mg Tablet) 3 mg PO BEDTIME [facility] Last Admin: 12/06/23 21:20 Dose: 3 mg Metformin HCl (Metformin Hcl 500 Mg Tablet) 500 mg PO BIDWM [facility] Last Admin: 12/07/23 08:51 Dose: 500 mg Pregabalin (Pregabalin 100 Mg Capsule) 100 mg PO BID [facility] Last Admin: 12/07/23 08:51 Dose: 100 mg Trazodone HCl (Trazodone Hcl 50 Mg Tablet) 50 mg PO BEDTIME MRX1 PRN PRN Reason: Insomnia Allergies Allergies Allergy/AdvReac Type Severity Reaction Status Date / Time amoxicillin [AMOXICILLIN] Allergy Intermediate RASH Verified 08/29/22 14:43 azithromycin [AZITHROMYCIN] Allergy Intermediate RASH Verified 08/29/22 14:43 Clindamycin HCl Allergy Intermediate itch Verified 08/29/22 14:43 clonazepam [CLONAZEPAM] Allergy Intermediate RASH Verified 08/29/22 14:43 doxycycline [DOXYCYCLINE] Allergy Intermediate RASH Verified 08/29/22 14:43 ergocalciferol (vitamin D2) Allergy Intermediate RASH Verified 08/29/22 14:43 [From VITAMIN D2] guaifenesin [GUAIFENESIN] Allergy Intermediate RASH Verified 08/29/22 14:43 hydroxyzine [HYDROXYZINE] Allergy Intermediate RASH Verified 08/29/22 14:43 levofloxacin [LEVOFLOXACIN] Allergy Intermediate RASH Verified 08/29/22 14:43 metronidazole [From FLAGYL] Allergy Intermediate RASH Verified 08/29/22 14:43 omeprazole [OMEPRAZOLE] Allergy Intermediate RASH Verified 08/29/22 14:43 orlistat [From ALICIA] Allergy Intermediate RASH Verified 08/29/22 14:43 quetiapine [From SEROQUEL] Allergy Intermediate RASH Verified 08/29/22 14:43 ranitidine [RANITIDINE] Allergy Intermediate LIP Verified 08/29/22 14:43 NUMBNESS sulfamethoxazole Allergy Intermediate RASH Verified 08/29/22 14:43 [From BACTRIM] sumatriptan Allergy Intermediate rash Verified 08/29/22 14:43 trimethoprim [From BACTRIM] Allergy Intermediate RASH Verified 08/29/22 14:43 venlafaxine [From EFFEXOR] Allergy Intermediate RSH Verified 08/29/22 14:43 aripiprazole [From ABILIFY] 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 benzonatate AdvReac Severe Chest Pain Verified 08/29/22 14:43 haloperidol [From HALDOL] 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 Patient apparently believed her house was on fire and police, EMS, and eventually [facility] were called. Apparently patient was initially nonverbal when brought to the ED. Medical consult for admission H&P. Mood disorder Plan as per psychiatry HTN Continue amlodipine, carvedilol HLD Continue statin Hypothyroidism Continue levothyroxine Onj-[id number]-dhznvtbrv type 2 diabetes Continue metformin Encourage diabetic diet (2) Bipolar 1 disorder: Status: Acute Code(s): F31.9 - Bipolar disorder, unspecified Plan 12/04: restart home meds. stabilize inpatient. T/C adding neuroleptic as needed. 12/05: refused meds last night, took them this morning. remains with paranoid delusions. continue to establish rapport. pt signed CV today, aware of need for 5 days of lithium and then check labs and clinical response. pt reports she is supposed to be taking lithium 300/450 rather than 450 BID, dosing changed accordingly. otherwise continue current mgmt. 12/06: no changes Reason for continued inpatient stay Substantial Risk for: rapid decompensation Time Spent With Patient Time: Total time managing care of this patient today ____ minutes.
[2023-12-07 21:00] VITALS: BP 135/69; PULSE 74; RESP 16; TEMP 36.7; O2SAT 97
[2023-12-07] MEDS: Melatonin 3 MG TABLET PO (21:34)
[2023-12-07] MEDS: Lithium Carbonate ER 450 MG TABLET.ER PO (21:34)
[2023-12-08] MEDS: Levothyroxine Sodium 112 MCG TABLET PO (06:48)
[2023-12-08 07:30] VITALS: BP 145/74; PULSE 71; RESP 14; TEMP 36.6; O2SAT 97
[2023-12-08] MEDS: Atorvastatin Calcium 10 MG TABLET PO (08:08)
[2023-12-08] MEDS: Pregabalin 100 MG CAPSULE PO ×2 (08:08→21:44)
[2023-12-08] MEDS: Docusate Sodium 100 MG CAPSULE PO (08:08)
[2023-12-08] MEDS: Lithium Carbonate ER 300 MG TABLET.ER PO (08:08)
[2023-12-08] MEDS: metFORMIN HCl 500 MG TABLET PO ×2 (08:09→17:06)
[2023-12-08] MEDS: carvediloL 3.125 MG TABLET PO ×2 (08:42→21:44)
[2023-12-08] MEDS: amLODIPine Besylate 5 MG TABLET PO (08:42)
--- NOTE | 2023-12-08 12:06 | HO.PSYCHPN ---
Subjective Subjective Date of Service: 12/08/23 Reason For Visit: Bipolar Subjective Notes: Conditional Voluntary Interim History: met with patient. Discussed with Nursing. is guarded and suspicious today. Sleeping okay. Hopeful that her niece will visit and bring in clothing. No med concerns. Is attending groups. Denies suicidal thoughts. Denies hallucinations. Remains ambivalent about whether she was safe or not here. Medication Compliance: Yes Side effects from medications: No Attending Groups: Yes Review of Systems Acute medical concerns: No Review of Systems Review of Systems Nothing acute Mental Status Exam Mental Status Exam Narrative: slightly better self care today, in hospital garb, cooperative. no PMA/PMR. speech incr amount, nml rate, nml loudness, decr latency. thoughts slightly paranoid. affect constricted, anxious, non-labile. mood nervous. no SI/SIBI/HI/AVH expressed. Diagnostics Vital Signs (24Hr): Vital Signs - 24 hr 12/07/23 21:00 12/08/23 07:30 Temperature 98.1 F 97.9 F Pulse Rate 74 71 Respiratory Rate 16 14 Blood Pressure 135/69 145/74 H Pulse Oximetry 97 97 Oxygen Delivery Method Room Air Room Air BMI result Body Mass Index 34.3 Labs Labs: Laboratory Results - last 48 hr 12/07/23 07:42 Estimat Average Glucose 151 Hemoglobin A1c % 6.9 H Triglycerides 105 Cholesterol 126 LDL Cholesterol, Calc 65 HDL Cholesterol 40 L Vitamin B12 309 Folate 9.7 TSH 1.98 Free T4 1.25 Medications Medications Current Medications Acetaminophen (Acetaminophen 325 Mg Tablet) 650 mg PO Q6H PRN PRN Reason: Headache/Pain Mild Scale (1-3) Last Admin: 12/05/23 20:27 Dose: 650 mg Al Hydroxide/Mg Hydroxide (Magnesium Hydrox/Alum Hydrox 30 Ml Oral.Susp) 30 ml PO Q6H PRN PRN Reason: Heartburn/Nausea Amlodipine Besylate (Amlodipine Besylate 5 Mg Tablet) 5 mg PO DAILY [facility]; Protocol Last Admin: 12/08/23 08:42 Dose: 5 mg Atorvastatin Calcium (Atorvastatin Calcium 10 Mg Tablet) 10 mg PO DAILY [facility] Last Admin: 12/08/23 08:08 Dose: 10 mg Carvedilol (Carvedilol 3.125 Mg Tablet) 3.125 mg PO BID [facility]; Protocol Last Admin: 12/08/23 08:42 Dose: 3.125 mg Docusate Sodium (Docusate Sodium 100 Mg Capsule) 100 mg PO DAILY [facility] Last Admin: 12/08/23 08:08 Dose: 100 mg Levothyroxine Sodium (Levothyroxine Sodium 112 Mcg Tablet) 112 mcg PO DAILY@0600 [facility] Last Admin: 12/08/23 06:48 Dose: 112 mcg [place] Carbonate ([place] Carbonate Er 450 Mg Tablet.Er) 450 mg PO BEDTIME [facility] Last Admin: 12/07/23 21:34 Dose: 450 mg [place] Carbonate ([place] Carbonate Er 300 Mg Tablet.Er) 300 mg PO DAILY [facility] Last Admin: 12/08/23 08:08 Dose: 300 mg Lorazepam (Lorazepam 1 Mg Tablet) 1 mg PO DAILY PRN PRN Reason: severe anxiety Last Admin: 12/06/23 08:52 Dose: 1 mg Magnesium Hydroxide (Milk Of Magnesia 30 Ml Oral.Susp) 30 ml PO DAILY PRN PRN Reason: Constipation Melatonin (Melatonin 3 Mg Tablet) 3 mg PO BEDTIME [facility] Last Admin: 12/07/23 21:34 Dose: 3 mg Metformin HCl (Metformin Hcl 500 Mg Tablet) 500 mg PO BIDWM [facility] Last Admin: 12/08/23 08:09 Dose: 500 mg Pregabalin (Pregabalin 100 Mg Capsule) 100 mg PO BID [facility] Last Admin: 12/08/23 08:08 Dose: 100 mg Trazodone HCl (Trazodone Hcl 50 Mg Tablet) 50 mg PO BEDTIME MRX1 PRN PRN Reason: Insomnia Allergies Allergies Allergy/AdvReac Type Severity Reaction Status Date / Time amoxicillin [AMOXICILLIN] Allergy Intermediate RASH Verified 08/29/22 14:43 azithromycin [AZITHROMYCIN] Allergy Intermediate RASH Verified 08/29/22 14:43 Clindamycin HCl Allergy Intermediate itch Verified 08/29/22 14:43 clonazepam [CLONAZEPAM] Allergy Intermediate RASH Verified 08/29/22 14:43 doxycycline [DOXYCYCLINE] Allergy Intermediate RASH Verified 08/29/22 14:43 ergocalciferol (vitamin D2) Allergy Intermediate RASH Verified 08/29/22 14:43 [From VITAMIN D2] guaifenesin [GUAIFENESIN] Allergy Intermediate RASH Verified 08/29/22 14:43 hydroxyzine [HYDROXYZINE] Allergy Intermediate RASH Verified 08/29/22 14:43 levofloxacin [LEVOFLOXACIN] Allergy Intermediate RASH Verified 08/29/22 14:43 metronidazole [From FLAGYL] Allergy Intermediate RASH Verified 08/29/22 14:43 omeprazole [OMEPRAZOLE] Allergy Intermediate RASH Verified 08/29/22 14:43 orlistat [From ALICIA] Allergy Intermediate RASH Verified 08/29/22 14:43 quetiapine [From SEROQUEL] Allergy Intermediate RASH Verified 08/29/22 14:43 ranitidine [RANITIDINE] Allergy Intermediate LIP Verified 08/29/22 14:43 NUMBNESS sulfamethoxazole Allergy Intermediate RASH Verified 08/29/22 14:43 [From BACTRIM] sumatriptan Allergy Intermediate rash Verified 08/29/22 14:43 trimethoprim [From BACTRIM] Allergy Intermediate RASH Verified 08/29/22 14:43 venlafaxine [From EFFEXOR] Allergy Intermediate RSH Verified 08/29/22 14:43 aripiprazole [From ABILIFY] 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 benzonatate AdvReac Severe Chest Pain Verified 08/29/22 14:43 haloperidol [From HALDOL] 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 Patient apparently believed her house was on fire and police, EMS, and eventually [facility] were called. Apparently patient was initially nonverbal when brought to the ED. Medical consult for admission H&P. Mood disorder Plan as per psychiatry HTN Continue amlodipine, carvedilol HLD Continue statin Hypothyroidism Continue levothyroxine Rvq-xavnxuv-yaopceivu type 2 diabetes Continue metformin Encourage diabetic diet (2) Bipolar 1 disorder: Status: Acute Code(s): F31.9 - Bipolar disorder, unspecified Plan 12/04: restart home meds. stabilize inpatient. T/C adding neuroleptic as needed. 12/05: refused meds last night, took them this morning. remains with paranoid delusions. continue to establish rapport. pt signed CV today, aware of need for 5 days of lithium and then check labs and clinical response. pt reports she is supposed to be taking lithium 300/450 rather than 450 BID, dosing changed accordingly. otherwise continue current mgmt. 12/06: no changes 12/07: no changes Reason for continued inpatient stay Substantial Risk for: inability to function Time Spent With Patient Time: Total time managing care of this patient today ____ minutes.
[2023-12-08 21:00] VITALS: BP 134/68; PULSE 79; RESP 16; TEMP 36.6; O2SAT 98
[2023-12-08] MEDS: LORazepam 1 MG TABLET PO (21:20)
[2023-12-08] MEDS: Melatonin 3 MG TABLET PO (21:45)
[2023-12-08] MEDS: Lithium Carbonate ER 450 MG TABLET.ER PO (21:45)
[2023-12-08] MEDS: Acetaminophen 325 MG TABLET 650 MG PO (23:57)
[2023-12-09 06:00] VITALS: BP 127/79; PULSE 68; RESP 14; TEMP 36.7; O2SAT 99
[2023-12-09] MEDS: Levothyroxine Sodium 112 MCG TABLET PO (06:31)
[2023-12-09 08:22] LABS: Creatinine Clr Calc Pharmacy 68.6; Estimated Glomerular Filt Rate > 60
[2023-12-09] MEDS: Lithium Carbonate ER 300 MG TABLET.ER PO (09:08)
[2023-12-09] MEDS: Pregabalin 100 MG CAPSULE PO ×2 (09:08→22:50)
[2023-12-09] MEDS: Atorvastatin Calcium 10 MG TABLET PO (09:08)
[2023-12-09] MEDS: amLODIPine Besylate 5 MG TABLET PO (09:08)
[2023-12-09] MEDS: carvediloL 3.125 MG TABLET PO ×2 (09:08→22:50)
[2023-12-09] MEDS: Docusate Sodium 100 MG CAPSULE PO (09:09)
[2023-12-09] MEDS: metFORMIN HCl 500 MG TABLET PO ×2 (09:09→17:59)
--- NOTE | 2023-12-09 15:47 | P.PNPSI_ITS ---
Subjective Subjective Date of Service: 12/09/23 Reason For Visit: Bipolar Interim History: very talkative. pleasant. advocating for discharge for herself, states she feels fine. appears manic. per staff, anxious. varied affect. taking meds. less confused. visit with family over w/e.. increased irritability eves. Mental Status Exam Mental Status Exam Narrative: adequately dressed and groomed, in street clothes. seen with JAIRO Pandya. cooperative. no PMA/PMR. speech incr amount, incr rate, nml loudness, decr latency. thoughts more linear, no clear overt paranoia expressed. affect constricted, hyper-intense, non-labile. mood not assessed. no SI/SIBI/HI/AVH expressed. Diagnostics Vital Signs (24Hr): Vital Signs - 24 hr 12/08/23 21:00 12/09/23 06:00 Temperature 97.8 F 98.0 F Pulse Rate 79 68 Respiratory Rate 16 14 Blood Pressure 134/68 127/79 Pulse Oximetry 98 99 Oxygen Delivery Method Room Air Room Air BMI result Body Mass Index 34.3 Labs 12/09/23 07:48 Labs: Laboratory Results - last 48 hr 12/09/23 07:48 Creatinine 0.81 Estim Creat Clear Calc 68.6 Estimated GFR > 60 Medications Medications Current Medications Acetaminophen (Acetaminophen 325 Mg Tablet) 650 mg PO Q6H PRN PRN Reason: Headache/Pain Mild Scale (1-3) Last Admin: 12/08/23 23:57 Dose: 650 mg Al Hydroxide/Mg Hydroxide (Magnesium Hydrox/Alum Hydrox 30 Ml Oral.Susp) 30 ml PO Q6H PRN PRN Reason: Heartburn/Nausea Amlodipine Besylate (Amlodipine Besylate 5 Mg Tablet) 5 mg PO DAILY [facility]; Protocol Last Admin: 12/09/23 09:08 Dose: 5 mg Atorvastatin Calcium (Atorvastatin Calcium 10 Mg Tablet) 10 mg PO DAILY [facility] Last Admin: 12/09/23 09:08 Dose: 10 mg Carvedilol (Carvedilol 3.125 Mg Tablet) 3.125 mg PO BID [facility]; Protocol Last Admin: 12/09/23 09:08 Dose: 3.125 mg Docusate Sodium (Docusate Sodium 100 Mg Capsule) 100 mg PO DAILY [facility] Last Admin: 12/09/23 09:09 Dose: 100 mg Levothyroxine Sodium (Levothyroxine Sodium 112 Mcg Tablet) 112 mcg PO DAILY@0600 [facility] Last Admin: 12/09/23 06:31 Dose: 112 mcg [employer] Carbonate ([employer] Carbonate Er 450 Mg Tablet.Er) 450 mg PO BEDTIME [facility] Last Admin: 12/08/23 21:45 Dose: 450 mg [employer] Carbonate ([employer] Carbonate Er 300 Mg Tablet.Er) 300 mg PO DAILY [facility] Last Admin: 12/09/23 09:08 Dose: 300 mg Lorazepam (Lorazepam 1 Mg Tablet) 1 mg PO DAILY PRN PRN Reason: severe anxiety Last Admin: 12/08/23 21:20 Dose: 1 mg Magnesium Hydroxide (Milk Of Magnesia 30 Ml Oral.Susp) 30 ml PO DAILY PRN PRN Reason: Constipation Melatonin (Melatonin 3 Mg Tablet) 3 mg PO BEDTIME [facility] Last Admin: 12/08/23 21:45 Dose: 3 mg Metformin HCl (Metformin Hcl 500 Mg Tablet) 500 mg PO BIDWM [facility] Last Admin: 12/09/23 09:09 Dose: 500 mg Pregabalin (Pregabalin 100 Mg Capsule) 100 mg PO BID [facility] Last Admin: 12/09/23 09:08 Dose: 100 mg Trazodone HCl (Trazodone Hcl 50 Mg Tablet) 50 mg PO BEDTIME MRX1 PRN PRN Reason: Insomnia Allergies Allergies Allergy/AdvReac Type Severity Reaction Status Date / Time amoxicillin [AMOXICILLIN] Allergy Intermediate RASH Verified 08/29/22 14:43 azithromycin [AZITHROMYCIN] Allergy Intermediate RASH Verified 08/29/22 14:43 Clindamycin HCl Allergy Intermediate itch Verified 08/29/22 14:43 clonazepam [CLONAZEPAM] Allergy Intermediate RASH Verified 08/29/22 14:43 doxycycline [DOXYCYCLINE] Allergy Intermediate RASH Verified 08/29/22 14:43 ergocalciferol (vitamin D2) Allergy Intermediate RASH Verified 08/29/22 14:43 [From VITAMIN D2] guaifenesin [GUAIFENESIN] Allergy Intermediate RASH Verified 08/29/22 14:43 hydroxyzine [HYDROXYZINE] Allergy Intermediate RASH Verified 08/29/22 14:43 levofloxacin [LEVOFLOXACIN] Allergy Intermediate RASH Verified 08/29/22 14:43 metronidazole [From FLAGYL] Allergy Intermediate RASH Verified 08/29/22 14:43 omeprazole [OMEPRAZOLE] Allergy Intermediate RASH Verified 08/29/22 14:43 orlistat [From ALICIA] Allergy Intermediate RASH Verified 08/29/22 14:43 quetiapine [From SEROQUEL] Allergy Intermediate RASH Verified 08/29/22 14:43 ranitidine [RANITIDINE] Allergy Intermediate LIP Verified 08/29/22 14:43 NUMBNESS sulfamethoxazole Allergy Intermediate RASH Verified 08/29/22 14:43 [From BACTRIM] sumatriptan Allergy Intermediate rash Verified 08/29/22 14:43 trimethoprim [From BACTRIM] Allergy Intermediate RASH Verified 08/29/22 14:43 venlafaxine [From EFFEXOR] Allergy Intermediate RSH Verified 08/29/22 14:43 aripiprazole [From ABILIFY] 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 benzonatate AdvReac Severe Chest Pain Verified 08/29/22 14:43 haloperidol [From HALDOL] 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 Patient apparently believed her house was on fire and police, EMS, and eventually [facility] were called. Apparently patient was initially nonverbal when brought to the ED. Medical consult for admission H&P. Mood disorder Plan as per psychiatry HTN Continue amlodipine, carvedilol HLD Continue statin Hypothyroidism Continue levothyroxine Aja-obozayi-nbqrorfxp type 2 diabetes Continue metformin Encourage diabetic diet (2) Bipolar 1 disorder: Status: Acute Code(s): F31.9 - Bipolar disorder, unspecified Plan 12/04: restart home meds. stabilize inpatient. T/C adding neuroleptic as needed. 12/05: refused meds last night, took them this morning. remains with paranoid delusions. continue to establish rapport. pt signed CV today, aware of need for 5 days of lithium and then check labs and clinical response. pt reports she is supposed to be taking lithium 300/450 rather than 450 BID, dosing changed accordingly. otherwise continue current mgmt. 12/06: no changes 12/07: no changes 12/08: presenting with inadequately addressed coty. check lithium/labs 12/10 maribell. continue current mgmt for now. Reason for continued inpatient stay Substantial Risk for: inability to function and rapid decompensation Time Spent With Patient Time: Total time managing care of this patient today __25__ minutes.
[2023-12-09] MEDS: Acetaminophen 325 MG TABLET 650 MG PO ×2 (16:07→22:54)
[2023-12-09 19:52] VITALS: BP 140/64; PULSE 70; RESP 16; TEMP 36.8; O2SAT 100
[2023-12-09] MEDS: Melatonin 3 MG TABLET PO (22:50)
[2023-12-09] MEDS: Lithium Carbonate ER 450 MG TABLET.ER PO (22:50)
[2023-12-09] MEDS: Zolpidem Tartrate 5 MG TABLET PO (22:50)
[2023-12-09] MEDS: LORazepam 1 MG TABLET PO (22:50)
[2023-12-10 06:00] VITALS: BP 133/83; PULSE 81; RESP 16; TEMP 36.8; O2SAT 100
[2023-12-10] MEDS: Levothyroxine Sodium 112 MCG TABLET PO (07:12)
[2023-12-10] MEDS: Pregabalin 100 MG CAPSULE PO ×2 (08:59→21:07)
[2023-12-10] MEDS: Atorvastatin Calcium 10 MG TABLET PO (09:00)
[2023-12-10] MEDS: amLODIPine Besylate 5 MG TABLET PO (09:00)
[2023-12-10] MEDS: Docusate Sodium 100 MG CAPSULE PO (09:00)
[2023-12-10] MEDS: carvediloL 3.125 MG TABLET PO ×2 (09:01→21:07)
[2023-12-10] MEDS: Lithium Carbonate ER 300 MG TABLET.ER PO (09:01)
[2023-12-10] MEDS: Acetaminophen 325 MG TABLET 650 MG PO (11:33)
[2023-12-10] MEDS: metFORMIN HCl 500 MG TABLET PO ×2 (11:33→18:21)
--- NOTE | 2023-12-10 16:58 | HO.PSYCHPN ---
Subjective Subjective Date of Service: 12/10/23 Reason For Visit: Bipolar Interim History: continuing abating coty. better able to engage, calm,er more logical, less speech output. reminded of labs tomorrow night. wants discharge. per staff, sad, wants D/C. homesick. anxious to pay her bills, rent. Mental Status Exam Mental Status Exam Narrative: adequately dressed and groomed, in street clothes. cooperative. no PMA/PMR. speech incr amount, nml rate, nml loudness, decr latency. thoughts more linear, no clear overt paranoia expressed. affect flexible, normo-intense, non-labile. mood euthymic. no SI/SIBI/HI/AVH expressed. Diagnostics Vital Signs (24Hr): Vital Signs - 24 hr 12/09/23 19:52 12/10/23 06:00 Temperature 98.3 F 98.3 F Pulse Rate 70 81 Respiratory Rate 16 16 Blood Pressure 140/64 H 133/83 Pulse Oximetry 100 100 Oxygen Delivery Method Room Air Room Air BMI result Body Mass Index 34.3 Labs 12/09/23 07:48 Labs: Laboratory Results - last 48 hr 12/09/23 07:48 Creatinine 0.81 Estim Creat Clear Calc 68.6 Estimated GFR > 60 Medications Medications Current Medications Acetaminophen (Acetaminophen 325 Mg Tablet) 650 mg PO Q6H PRN PRN Reason: Headache/Pain Mild Scale (1-3) Last Admin: 12/10/23 11:33 Dose: 650 mg Al Hydroxide/Mg Hydroxide (Magnesium Hydrox/Alum Hydrox 30 Ml Oral.Susp) 30 ml PO Q6H PRN PRN Reason: Heartburn/Nausea Amlodipine Besylate (Amlodipine Besylate 5 Mg Tablet) 5 mg PO DAILY [facility]; Protocol Last Admin: 12/10/23 09:00 Dose: 5 mg Atorvastatin Calcium (Atorvastatin Calcium 10 Mg Tablet) 10 mg PO DAILY [facility] Last Admin: 12/10/23 09:00 Dose: 10 mg Carvedilol (Carvedilol 3.125 Mg Tablet) 3.125 mg PO BID [facility]; Protocol Last Admin: 12/10/23 09:01 Dose: 3.125 mg Docusate Sodium (Docusate Sodium 100 Mg Capsule) 100 mg PO DAILY [facility] Last Admin: 12/10/23 09:00 Dose: 100 mg Levothyroxine Sodium (Levothyroxine Sodium 112 Mcg Tablet) 112 mcg PO DAILY@0600 [facility] Last Admin: 12/10/23 07:12 Dose: 112 mcg [place] Carbonate ([place] Carbonate Er 450 Mg Tablet.Er) 450 mg PO BEDTIME [facility] Last Admin: 12/09/23 22:50 Dose: 450 mg [place] Carbonate ([place] Carbonate Er 300 Mg Tablet.Er) 300 mg PO DAILY [facility] Last Admin: 12/10/23 09:01 Dose: 300 mg Lorazepam (Lorazepam 1 Mg Tablet) 1 mg PO DAILY PRN PRN Reason: severe anxiety Last Admin: 12/09/23 22:50 Dose: 1 mg Magnesium Hydroxide (Milk Of Magnesia 30 Ml Oral.Susp) 30 ml PO DAILY PRN PRN Reason: Constipation Melatonin (Melatonin 3 Mg Tablet) 3 mg PO BEDTIME [facility] Last Admin: 12/09/23 22:50 Dose: 3 mg Metformin HCl (Metformin Hcl 500 Mg Tablet) 500 mg PO BIDWM [facility] Last Admin: 12/10/23 11:33 Dose: 500 mg Pregabalin (Pregabalin 100 Mg Capsule) 100 mg PO BID [facility] Last Admin: 12/10/23 08:59 Dose: 100 mg Trazodone HCl (Trazodone Hcl 50 Mg Tablet) 50 mg PO BEDTIME MRX1 PRN PRN Reason: Insomnia Allergies Allergies Allergy/AdvReac Type Severity Reaction Status Date / Time amoxicillin [AMOXICILLIN] Allergy Intermediate RASH Verified 08/29/22 14:43 azithromycin [AZITHROMYCIN] Allergy Intermediate RASH Verified 08/29/22 14:43 Clindamycin HCl Allergy Intermediate itch Verified 08/29/22 14:43 clonazepam [CLONAZEPAM] Allergy Intermediate RASH Verified 08/29/22 14:43 doxycycline [DOXYCYCLINE] Allergy Intermediate RASH Verified 08/29/22 14:43 ergocalciferol (vitamin D2) Allergy Intermediate RASH Verified 08/29/22 14:43 [From VITAMIN D2] guaifenesin [GUAIFENESIN] Allergy Intermediate RASH Verified 08/29/22 14:43 hydroxyzine [HYDROXYZINE] Allergy Intermediate RASH Verified 08/29/22 14:43 levofloxacin [LEVOFLOXACIN] Allergy Intermediate RASH Verified 08/29/22 14:43 metronidazole [From FLAGYL] Allergy Intermediate RASH Verified 08/29/22 14:43 omeprazole [OMEPRAZOLE] Allergy Intermediate RASH Verified 08/29/22 14:43 orlistat [From ALICIA] Allergy Intermediate RASH Verified 08/29/22 14:43 quetiapine [From SEROQUEL] Allergy Intermediate RASH Verified 08/29/22 14:43 ranitidine [RANITIDINE] Allergy Intermediate LIP Verified 08/29/22 14:43 NUMBNESS sulfamethoxazole Allergy Intermediate RASH Verified 08/29/22 14:43 [From BACTRIM] sumatriptan Allergy Intermediate rash Verified 08/29/22 14:43 trimethoprim [From BACTRIM] Allergy Intermediate RASH Verified 08/29/22 14:43 venlafaxine [From EFFEXOR] Allergy Intermediate RSH Verified 08/29/22 14:43 aripiprazole [From ABILIFY] 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 benzonatate AdvReac Severe Chest Pain Verified 08/29/22 14:43 haloperidol [From HALDOL] 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 Patient apparently believed her house was on fire and police, EMS, and eventually [facility] were called. Apparently patient was initially nonverbal when brought to the ED. Medical consult for admission H&P. Mood disorder Plan as per psychiatry HTN Continue amlodipine, carvedilol HLD Continue statin Hypothyroidism Continue levothyroxine Fos-tdjqofk-wofgefgth type 2 diabetes Continue metformin Encourage diabetic diet (2) Bipolar 1 disorder: Status: Acute Code(s): F31.9 - Bipolar disorder, unspecified Plan 12/04: restart home meds. stabilize inpatient. T/C adding neuroleptic as needed. 12/05: refused meds last night, took them this morning. remains with paranoid delusions. continue to establish rapport. pt signed CV today, aware of need for 5 days of lithium and then check labs and clinical response. pt reports she is supposed to be taking lithium 300/450 rather than 450 BID, dosing changed accordingly. otherwise continue current mgmt. 12/06: no changes 12/07: no changes 12/08: presenting with inadequately addressed coty. check lithium/labs 12/10 maribell. continue current mgmt for now. 12/09: coty abating day by day. continue current mgmt, labs 12/10 maribell. continue current mgmt. Reason for continued inpatient stay Substantial Risk for: inability to function and rapid decompensation Time Spent With Patient Time: Total time managing care of this patient today __25__ minutes.
[2023-12-10 19:55] VITALS: BP 120/67; PULSE 73; RESP 16; TEMP 36.8; O2SAT 100
[2023-12-10] MEDS: Melatonin 3 MG TABLET PO (21:08)
[2023-12-10] MEDS: Lithium Carbonate ER 450 MG TABLET.ER PO (21:08)
[2023-12-10] MEDS: LORazepam 1 MG TABLET PO (22:22)
[2023-12-11 06:00] VITALS: BP 128/71; PULSE 68; RESP 16; TEMP 36.4; O2SAT 99
[2023-12-11] MEDS: Levothyroxine Sodium 112 MCG TABLET PO (06:05)
[2023-12-11] MEDS: carvediloL 3.125 MG TABLET PO ×2 (08:15→21:21)
[2023-12-11] MEDS: Pregabalin 100 MG CAPSULE PO ×2 (08:15→21:21)
[2023-12-11] MEDS: Atorvastatin Calcium 10 MG TABLET PO (08:15)
[2023-12-11] MEDS: metFORMIN HCl 500 MG TABLET PO ×2 (08:16→18:04)
[2023-12-11] MEDS: amLODIPine Besylate 5 MG TABLET PO (08:16)
[2023-12-11] MEDS: Docusate Sodium 100 MG CAPSULE PO (08:16)
[2023-12-11] MEDS: Lithium Carbonate ER 300 MG TABLET.ER PO (08:16)
[2023-12-11 08:18] LABS: Glucose, Whole Blood 110 mg/dL (60-115)
--- NOTE | 2023-12-11 15:25 | HO.PSYCHPN ---
Subjective Subjective Date of Service: 12/11/23 Reason For Visit: Bipolar Interim History: calm, cooperative. appears much improved from admission. cogent, logical. c/o some insomnia, discussed DC of ambien and ativan. agreeable to add low-dose seroquel to HS. will also DC trazodone. per staff, social, friendly. taking meds. + groups. pleasant. asked for PRN ativan for sleep. slept all NOC. Mental Status Exam Mental Status Exam Narrative: adequately dressed and groomed, in street clothes. cooperative. no PMA/PMR. speech nml amount, nml rate, nml loudness, decr latency. thoughts linear and logical, no paranoia or delusions expressed. affect flexible, normo-intense, non-labile. mood euthymic. no SI/SIBI/HI/AVH expressed. Diagnostics Vital Signs (24Hr): Vital Signs - 24 hr 12/10/23 19:55 12/11/23 06:00 Temperature 98.2 F 97.5 F Pulse Rate 73 68 Respiratory Rate 16 16 Blood Pressure 120/67 128/71 Pulse Oximetry 100 99 Oxygen Delivery Method Room Air Room Air BMI result Body Mass Index 34.3 Labs 12/09/23 07:48 Labs: Laboratory Results - last 48 hr 12/11/23 08:08 POC Glucose 110 Medications Medications Current Medications Acetaminophen (Acetaminophen 325 Mg Tablet) 650 mg PO Q6H PRN PRN Reason: Headache/Pain Mild Scale (1-3) Last Admin: 12/10/23 11:33 Dose: 650 mg Al Hydroxide/Mg Hydroxide (Magnesium Hydrox/Alum Hydrox 30 Ml Oral.Susp) 30 ml PO Q6H PRN PRN Reason: Heartburn/Nausea Amlodipine Besylate (Amlodipine Besylate 5 Mg Tablet) 5 mg PO DAILY [facility]; Protocol Last Admin: 12/11/23 08:16 Dose: 5 mg Atorvastatin Calcium (Atorvastatin Calcium 10 Mg Tablet) 10 mg PO DAILY [facility] Last Admin: 12/11/23 08:15 Dose: 10 mg Carvedilol (Carvedilol 3.125 Mg Tablet) 3.125 mg PO BID [facility]; Protocol Last Admin: 12/11/23 08:15 Dose: 3.125 mg Docusate Sodium (Docusate Sodium 100 Mg Capsule) 100 mg PO DAILY [facility] Last Admin: 12/11/23 08:16 Dose: 100 mg Levothyroxine Sodium (Levothyroxine Sodium 112 Mcg Tablet) 112 mcg PO DAILY@0600 [facility] Last Admin: 12/11/23 06:05 Dose: 112 mcg [place] Carbonate ([place] Carbonate Er 450 Mg Tablet.Er) 450 mg PO BEDTIME [facility] Last Admin: 12/10/23 21:08 Dose: 450 mg [place] Carbonate ([place] Carbonate Er 300 Mg Tablet.Er) 300 mg PO DAILY [facility] Last Admin: 12/11/23 08:16 Dose: 300 mg Lorazepam (Lorazepam 0.5 Mg Tablet) 0.5 mg PO DAILY PRN PRN Reason: severe anxiety Magnesium Hydroxide (Milk Of Magnesia 30 Ml Oral.Susp) 30 ml PO DAILY PRN PRN Reason: Constipation Melatonin (Melatonin 3 Mg Tablet) 3 mg PO BEDTIME [facility] Last Admin: 12/10/23 21:08 Dose: 3 mg Metformin HCl (Metformin Hcl 500 Mg Tablet) 500 mg PO BIDWM [facility] Last Admin: 12/11/23 08:16 Dose: 500 mg Pregabalin (Pregabalin 100 Mg Capsule) 100 mg PO BID [facility] Last Admin: 12/11/23 08:15 Dose: 100 mg Quetiapine Fumarate (Quetiapine Fumarate 50 Mg Tablet) 50 mg PO BEDTIME [facility] Allergies Allergies Allergy/AdvReac Type Severity Reaction Status Date / Time amoxicillin [AMOXICILLIN] Allergy Intermediate RASH Verified 08/29/22 14:43 azithromycin [AZITHROMYCIN] Allergy Intermediate RASH Verified 08/29/22 14:43 Clindamycin HCl Allergy Intermediate itch Verified 08/29/22 14:43 clonazepam [CLONAZEPAM] Allergy Intermediate RASH Verified 08/29/22 14:43 doxycycline [DOXYCYCLINE] Allergy Intermediate RASH Verified 08/29/22 14:43 ergocalciferol (vitamin D2) Allergy Intermediate RASH Verified 08/29/22 14:43 [From VITAMIN D2] guaifenesin [GUAIFENESIN] Allergy Intermediate RASH Verified 08/29/22 14:43 hydroxyzine [HYDROXYZINE] Allergy Intermediate RASH Verified 08/29/22 14:43 levofloxacin [LEVOFLOXACIN] Allergy Intermediate RASH Verified 08/29/22 14:43 metronidazole [From FLAGYL] Allergy Intermediate RASH Verified 08/29/22 14:43 omeprazole [OMEPRAZOLE] Allergy Intermediate RASH Verified 08/29/22 14:43 orlistat [From ALICIA] Allergy Intermediate RASH Verified 08/29/22 14:43 quetiapine [From SEROQUEL] Allergy Intermediate RASH Verified 08/29/22 14:43 ranitidine [RANITIDINE] Allergy Intermediate LIP Verified 08/29/22 14:43 NUMBNESS sulfamethoxazole Allergy Intermediate RASH Verified 08/29/22 14:43 [From BACTRIM] sumatriptan Allergy Intermediate rash Verified 08/29/22 14:43 trimethoprim [From BACTRIM] Allergy Intermediate RASH Verified 08/29/22 14:43 venlafaxine [From EFFEXOR] Allergy Intermediate RSH Verified 08/29/22 14:43 aripiprazole [From ABILIFY] 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 benzonatate AdvReac Severe Chest Pain Verified 08/29/22 14:43 haloperidol [From HALDOL] 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 Patient apparently believed her house was on fire and police, EMS, and eventually [facility] were called. Apparently patient was initially nonverbal when brought to the ED. Medical consult for admission H&P. Mood disorder Plan as per psychiatry HTN Continue amlodipine, carvedilol HLD Continue statin Hypothyroidism Continue levothyroxine Uda-tfmmuhe-ymcjpyelm type 2 diabetes Continue metformin Encourage diabetic diet (2) Bipolar 1 disorder: Status: Acute Code(s): F31.9 - Bipolar disorder, unspecified Plan 12/04: restart home meds. stabilize inpatient. T/C adding neuroleptic as needed. 12/05: refused meds last night, took them this morning. remains with paranoid delusions. continue to establish rapport. pt signed CV today, aware of need for 5 days of lithium and then check labs and clinical response. pt reports she is supposed to be taking lithium 300/450 rather than 450 BID, dosing changed accordingly. otherwise continue current mgmt. 12/06: no changes 12/07: no changes 12/08: presenting with inadequately addressed coty. check lithium/labs 12/10 maribell. continue current mgmt for now. 12/09: coty abating day by day. continue current mgmt, labs 12/10 maribell. continue current mgmt. 12/10: mental status appears quite clear. check labs tonight. may discharge tomorrow if labs good and continues to look well clinically. DC trazodone, do not give ambien, taper ativan, add seroquel 50 QHS. Reason for continued inpatient stay Substantial Risk for: inability to function and rapid decompensation Time Spent With Patient Time: Total time managing care of this patient today _25___ minutes.
[2023-12-11 20:10] VITALS: BP 120/69; PULSE 70; RESP 16; TEMP 36.6; O2SAT 100
[2023-12-11 20:44] LABS: MANUAL DIFF FLAG NO
[2023-12-11 20:57] LABS: Lithium 0.44 mmol/L (0.60-1.20)
[2023-12-11 21:03] LABS: Anion Gap 12 (12-20); Blood Urea Nitrogen 14 mg/dL (9-16); Calcium 9.9 mg/dL (8.4-10.2); Carbon Dioxide 28 mmol/L (22-29); Chloride 105 mmol/L (96-108); Creatinine Clr Calc Pharmacy 74.1; Estimated Glomerular Filt Rate > 60; Glucose Random 142 mg/dL (60-115); Potassium 4.2 mmol/L (3.3-5.1); Sodium 141 mmol/L (135-145)
[2023-12-11 21:13] LABS: Basophils Percent Auto 0.2 % (0-2); Eosinophils Absolute Auto 0.3 X10*3/uL (0.0-0.4); Eosinophils Percent Auto 2.2 % (0-4); Hematocrit 37.9 % (37.0-47.0); Hemoglobin 12.1 g/dl (12.0-16.0); Imm Gran Abs Auto 0.04 X10*3/uL (0.00-0.03); Imm Gran Pct Auto 0.3 % (0.0-0.4); Lymphocytes Absolute Auto 3.8 X10*3/uL (1.2-4.9); Lymphocytes Percent Auto 25.9 % (20-40); Mean Corpuscular HGB Conc 31.9 g/dl (31.0-35.0); Mean Corpuscular Hemoglobin 26.9 pg (27.0-33.0); Mean Corpuscular Volume 84.2 fL (80.0-98.0); Mean Platelet Volume 10.2 fL (9.4-12.3); Monocytes Absolute Auto 0.9 X10*3/uL (0.1-1.2); Monocytes Percent Auto 5.8 % (2-11); Neutrophils Absolute Auto 9.6 x10*3/uL (2.0-8.3); Neutrophils Percent Auto 65.6 % (45-73); Platelet Count 413 X10*3/uL (160-400); Red Cell Distribution Width 16.2 % (11.0-16.0); White Blood Count 14.6 X10*3/uL (4.8-10.8)
[2023-12-11] MEDS: Lithium Carbonate ER 450 MG TABLET.ER PO (21:20)
[2023-12-11] MEDS: LORazepam 0.5 MG TABLET PO (21:21)
[2023-12-11] MEDS: QUEtiapine Fumarate 50 MG TABLET PO (21:22)
[2023-12-11] MEDS: Melatonin 3 MG TABLET PO (21:22)
[2023-12-12] MEDS: Levothyroxine Sodium 112 MCG TABLET PO (06:51)
[2023-12-12 07:00] VITALS: BMI 36.5
[2023-12-12] MEDS: Pregabalin 100 MG CAPSULE PO ×2 (08:35→21:45)
[2023-12-12 08:38] VITALS: BP 138/77; PULSE 67; RESP 14; TEMP 36.4; O2SAT 100
[2023-12-12] MEDS: Docusate Sodium 100 MG CAPSULE PO (09:30)
[2023-12-12] MEDS: amLODIPine Besylate 5 MG TABLET PO (09:30)
[2023-12-12] MEDS: Lithium Carbonate ER 300 MG TABLET.ER PO (09:30)
[2023-12-12] MEDS: carvediloL 3.125 MG TABLET PO ×2 (09:30→21:44)
[2023-12-12] MEDS: Atorvastatin Calcium 10 MG TABLET PO (09:30)
[2023-12-12] MEDS: metFORMIN HCl 500 MG TABLET PO ×2 (09:30→17:43)
[2023-12-12] MEDS: Lithium Carbonate ER 300 MG TABLET.ER 150 MG PO (15:17)
--- NOTE | 2023-12-12 17:28 | P.PNPSI_ITS ---
Subjective Subjective Date of Service: 12/12/23 Reason For Visit: Bipolar Interim History: lithium level 0.44, pt informed of plan to increase back to 450 BID. c/o some diff sleeping, agreeable to increase HS seroquel to 100 mg. per staff, variable affect, pleasant. asking about DC. more confused last night. appeared to have slept. Mental Status Exam Mental Status Exam Narrative: adequately dressed and groomed, in street clothes. cooperative. no PMA/PMR. speech nml amount, nml rate, nml loudness, decr latency. thoughts linear and logical, perhaps some paranoid delusions others on the unit are talking ill of her. affect constricted, normo-intense, non-labile. mood anxious. no SI/SIBI/HI/AVH expressed. Diagnostics Vital Signs (24Hr): Vital Signs - 24 hr 12/11/23 20:10 12/12/23 08:38 Temperature 98 F 97.6 F Pulse Rate 70 67 Respiratory Rate 16 14 Blood Pressure 120/69 138/77 Pulse Oximetry 100 100 Oxygen Delivery Method Room Air Room Air BMI result Body Mass Index 34.3 Labs 12/11/23 20:35 12/11/23 20:35 Labs: Laboratory Results - last 48 hr 12/11/23 12/11/23 08:08 20:35 WBC 14.6 H RBC 4.50 Hgb 12.1 Hct 37.9 MCV 84.2 MCH 26.9 L MCHC 31.9 RDW 16.2 H Plt Count 413 H MPV 10.2 Immature Gran % (Auto) 0.3 Neut % (Auto) 65.6 Lymph % (Auto) 25.9 [place] % (Auto) 5.8 Eos % (Auto) 2.2 Baso % (Auto) 0.2 Lymph # (Auto) 3.8 [place] # (Auto) 0.9 Eos # (Auto) 0.3 Baso # (Auto) 0.0 Abs Immat Gran (auto) 0.04 H Absolute Neuts (auto) 9.6 H Absolute Nucleated RBC 0.000 Nucleated RBC % (auto) 0.0 Sodium 141 Potassium 4.2 Chloride 105 Carbon Dioxide 28 Anion Gap 12 BUN 14 Creatinine 0.75 Estim Creat Clear Calc 74.1 Estimated GFR > 60 POC Glucose 110 Random Glucose 142 H Calcium 9.9 [place] 0.44 L Medications Medications Current Medications Acetaminophen (Acetaminophen 325 Mg Tablet) 650 mg PO Q6H PRN PRN Reason: Headache/Pain Mild Scale (1-3) Last Admin: 12/10/23 11:33 Dose: 650 mg Al Hydroxide/Mg Hydroxide (Magnesium Hydrox/Alum Hydrox 30 Ml Oral.Susp) 30 ml PO Q6H PRN PRN Reason: Heartburn/Nausea Amlodipine Besylate (Amlodipine Besylate 5 Mg Tablet) 5 mg PO DAILY [facility]; Protocol Last Admin: 12/12/23 09:30 Dose: 5 mg Atorvastatin Calcium (Atorvastatin Calcium 10 Mg Tablet) 10 mg PO DAILY [facility] Last Admin: 12/12/23 09:30 Dose: 10 mg Carvedilol (Carvedilol 3.125 Mg Tablet) 3.125 mg PO BID [facility]; Protocol Last Admin: 12/12/23 09:30 Dose: 3.125 mg Docusate Sodium (Docusate Sodium 100 Mg Capsule) 100 mg PO DAILY [facility] Last Admin: 12/12/23 09:30 Dose: 100 mg Levothyroxine Sodium (Levothyroxine Sodium 112 Mcg Tablet) 112 mcg PO DAILY@0600 [facility] Last Admin: 12/12/23 06:51 Dose: 112 mcg [place] Carbonate ([place] Carbonate Er 450 Mg Tablet.Er) 450 mg PO BID [facility] Lorazepam (Lorazepam 0.5 Mg Tablet) 0.5 mg PO DAILY PRN PRN Reason: severe anxiety Last Admin: 12/11/23 21:21 Dose: 0.5 mg Magnesium Hydroxide (Milk Of Magnesia 30 Ml Oral.Susp) 30 ml PO DAILY PRN PRN Reason: Constipation Melatonin (Melatonin 3 Mg Tablet) 3 mg PO BEDTIME [facility] Last Admin: 12/11/23 21:22 Dose: 3 mg Metformin HCl (Metformin Hcl 500 Mg Tablet) 500 mg PO BIDWM [facility] Last Admin: 12/12/23 09:30 Dose: 500 mg Pregabalin (Pregabalin 100 Mg Capsule) 100 mg PO BID [facility] Last Admin: 12/12/23 08:35 Dose: 100 mg Quetiapine Fumarate (Quetiapine Fumarate 100 Mg Tablet) 100 mg PO BEDTIME [facility] Allergies Allergies Allergy/AdvReac Type Severity Reaction Status Date / Time amoxicillin [AMOXICILLIN] Allergy Intermediate RASH Verified 08/29/22 14:43 azithromycin [AZITHROMYCIN] Allergy Intermediate RASH Verified 08/29/22 14:43 Clindamycin HCl Allergy Intermediate itch Verified 08/29/22 14:43 clonazepam [CLONAZEPAM] Allergy Intermediate RASH Verified 08/29/22 14:43 doxycycline [DOXYCYCLINE] Allergy Intermediate RASH Verified 08/29/22 14:43 ergocalciferol (vitamin D2) Allergy Intermediate RASH Verified 08/29/22 14:43 [From VITAMIN D2] guaifenesin [GUAIFENESIN] Allergy Intermediate RASH Verified 08/29/22 14:43 hydroxyzine [HYDROXYZINE] Allergy Intermediate RASH Verified 08/29/22 14:43 levofloxacin [LEVOFLOXACIN] Allergy Intermediate RASH Verified 08/29/22 14:43 metronidazole [From FLAGYL] Allergy Intermediate RASH Verified 08/29/22 14:43 omeprazole [OMEPRAZOLE] Allergy Intermediate RASH Verified 08/29/22 14:43 orlistat [From ALICIA] Allergy Intermediate RASH Verified 08/29/22 14:43 quetiapine [From SEROQUEL] Allergy Intermediate RASH Verified 08/29/22 14:43 ranitidine [RANITIDINE] Allergy Intermediate LIP Verified 08/29/22 14:43 NUMBNESS sulfamethoxazole Allergy Intermediate RASH Verified 08/29/22 14:43 [From BACTRIM] sumatriptan Allergy Intermediate rash Verified 08/29/22 14:43 trimethoprim [From BACTRIM] Allergy Intermediate RASH Verified 08/29/22 14:43 venlafaxine [From EFFEXOR] Allergy Intermediate RSH Verified 08/29/22 14:43 aripiprazole [From ABILIFY] 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 benzonatate AdvReac Severe Chest Pain Verified 08/29/22 14:43 haloperidol [From HALDOL] 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 Patient apparently believed her house was on fire and police, EMS, and eventually [facility] were called. Apparently patient was initially nonverbal when brought to the ED. Medical consult for admission H&P. Mood disorder Plan as per psychiatry HTN Continue amlodipine, carvedilol HLD Continue statin Hypothyroidism Continue levothyroxine Pdz-vyfgmcd-dzdvdvdnk type 2 diabetes Continue metformin Encourage diabetic diet (2) Bipolar 1 disorder: Status: Acute Code(s): F31.9 - Bipolar disorder, unspecified Plan 12/04: restart home meds. stabilize inpatient. T/C adding neuroleptic as needed. 12/05: refused meds last night, took them this morning. remains with paranoid delusions. continue to establish rapport. pt signed CV today, aware of need for 5 days of lithium and then check labs and clinical response. pt reports she is supposed to be taking lithium 300/450 rather than 450 BID, dosing changed accordingly. otherwise continue current mgmt. 12/06: no changes 12/07: no changes 12/08: presenting with inadequately addressed coty. check lithium/labs 12/10 maribell. continue current mgmt for now. 12/09: coty abating day by day. continue current mgmt, labs 12/10 maribell. continue current mgmt. 12/10: mental status appears quite clear. check labs tonight. may discharge tomorrow if labs good and continues to look well clinically. DC trazodone, do not give ambien, taper ativan, add seroquel 50 QHS. 12/11: lithium level 0.44. increase lithium dosing to 450 BID. also increase HS seroquel to 100 mg. otherwise continue current mgmt. Reason for continued inpatient stay Substantial Risk for: inability to function and rapid decompensation Time Spent With Patient Time: Total time managing care of this patient today __35__ minutes.
[2023-12-12 21:30] VITALS: BP 132/62; PULSE 78; RESP 18; TEMP 36.9; O2SAT 100
[2023-12-12] MEDS: Lithium Carbonate ER 450 MG TABLET.ER PO (21:45)
[2023-12-12] MEDS: Melatonin 3 MG TABLET PO (21:45)
[2023-12-12] MEDS: LORazepam 0.5 MG TABLET PO (21:46)
[2023-12-12] MEDS: QUEtiapine Fumarate 100 MG TABLET PO (21:46)
[2023-12-13] MEDS: Levothyroxine Sodium 112 MCG TABLET PO (06:06)
[2023-12-13 09:15] VITALS: BP 129/67; PULSE 78; RESP 16; TEMP 36.8; O2SAT 98
[2023-12-13] MEDS: Atorvastatin Calcium 10 MG TABLET PO (09:38)
[2023-12-13] MEDS: metFORMIN HCl 500 MG TABLET PO ×2 (09:40→18:18)
[2023-12-13] MEDS: Lithium Carbonate ER 450 MG TABLET.ER PO ×2 (09:40→21:00)
[2023-12-13] MEDS: Pregabalin 100 MG CAPSULE PO ×2 (09:40→20:59)
[2023-12-13] MEDS: carvediloL 3.125 MG TABLET PO ×2 (09:40→20:59)
[2023-12-13] MEDS: amLODIPine Besylate 5 MG TABLET PO (09:41)
[2023-12-13] MEDS: Docusate Sodium 100 MG CAPSULE PO (09:41)
[2023-12-13 11:19] LABS: Appearance Urine Clear; Color Urine Yellow; Glucose Urine UA Negative (Negative); Leukocyte Esterase Urine Trace (Negative); Nitrite Urine Negative (Negative); Specific Gravity - Urine 1.015 (1.005-1.025); UMIC TRIGGER UACC YES; Urine Blood Negative (Negative); Urine Ketones Negative (Negative); Urine Protein Negative (Neg-Trace)
[2023-12-13 11:43] LABS: Bacteria Urine Trace (None Seen); Hyaline Casts Urine 0-2 /LPF (0-2); RBC Urine 0-2 /HPF (0-2); Squamous Epithelial Cell Urine 0-2 /HPF (0-2); WBC Urine 0-5 /HPF (0-5)
--- NOTE | 2023-12-13 15:45 | P.PNPSI_ITS ---
Subjective Subjective Date of Service: 12/13/23 Reason For Visit: Bipolar Interim History: remains paranoid about others' perceptions of her. appears somewhat improved from yesterday's state. asking to go home, suggests perhaps next week some time once lithium is rechecked and course has stabilized. per staff, increased anxiety. confused. not attending groups. got ativan PRN. slept about 6 hours. Mental Status Exam Mental Status Exam Narrative: adequately dressed and groomed, in street clothes. cooperative. no PMA/PMR. speech nml amount, nml rate, nml loudness, decr latency. thoughts linear and logical, perhaps some paranoid delusions others on the unit are talking ill of her. affect constricted, normo-intense, non-labile. mood anxious. no SI/SIBI/HI/AVH expressed. Diagnostics Vital Signs (24Hr): Vital Signs - 24 hr 12/12/23 21:30 12/13/23 09:15 Temperature 98.4 F 98.2 F Pulse Rate 78 78 Respiratory Rate 18 16 Blood Pressure 132/62 129/67 Pulse Oximetry 100 98 Oxygen Delivery Method Room Air Room Air BMI result Body Mass Index 36.5 Labs 12/11/23 20:35 12/11/23 20:35 Labs: Laboratory Results - last 48 hr 12/11/23 12/13/23 20:35 11:00 WBC 14.6 H RBC 4.50 Hgb 12.1 Hct 37.9 MCV 84.2 MCH 26.9 L MCHC 31.9 RDW 16.2 H Plt Count 413 H MPV 10.2 Immature Gran % (Auto) 0.3 Neut % (Auto) 65.6 Lymph % (Auto) 25.9 [place] % (Auto) 5.8 Eos % (Auto) 2.2 Baso % (Auto) 0.2 Lymph # (Auto) 3.8 [place] # (Auto) 0.9 Eos # (Auto) 0.3 Baso # (Auto) 0.0 Abs Immat Gran (auto) 0.04 H Absolute Neuts (auto) 9.6 H Absolute Nucleated RBC 0.000 Nucleated RBC % (auto) 0.0 Sodium 141 Potassium 4.2 Chloride 105 Carbon Dioxide 28 Anion Gap 12 BUN 14 Creatinine 0.75 Estim Creat Clear Calc 74.1 Estimated GFR > 60 Random Glucose 142 H Calcium 9.9 Urine Color Yellow Urine Appearance Clear Urine pH 7.0 Ur Specific [place] 1.015 Urine Protein Negative Urine Glucose (UA) Negative Urine Ketones Negative Urine Blood Negative Urine Nitrite Negative Ur Leukocyte Esterase Trace H Urine RBC 0-2 Urine WBC 0-5 Ur Squamous Epith Cells 0-2 Urine Bacteria Trace Hyaline Casts 0-2 [place] 0.44 L Medications Medications Current Medications Acetaminophen (Acetaminophen 325 Mg Tablet) 650 mg PO Q6H PRN PRN Reason: Headache/Pain Mild Scale (1-3) Last Admin: 12/10/23 11:33 Dose: 650 mg Al Hydroxide/Mg Hydroxide (Magnesium Hydrox/Alum Hydrox 30 Ml Oral.Susp) 30 ml PO Q6H PRN PRN Reason: Heartburn/Nausea Amlodipine Besylate (Amlodipine Besylate 5 Mg Tablet) 5 mg PO DAILY [facility]; Protocol Last Admin: 12/13/23 09:41 Dose: 5 mg Atorvastatin Calcium (Atorvastatin Calcium 10 Mg Tablet) 10 mg PO DAILY [facility] Last Admin: 12/13/23 09:38 Dose: 10 mg Carvedilol (Carvedilol 3.125 Mg Tablet) 3.125 mg PO BID [facility]; Protocol Last Admin: 12/13/23 09:40 Dose: 3.125 mg Docusate Sodium (Docusate Sodium 100 Mg Capsule) 100 mg PO DAILY [facility] Last Admin: 12/13/23 09:41 Dose: 100 mg Levothyroxine Sodium (Levothyroxine Sodium 112 Mcg Tablet) 112 mcg PO DAILY@0600 [facility] Last Admin: 12/13/23 06:06 Dose: 112 mcg [place] Carbonate ([place] Carbonate Er 450 Mg Tablet.Er) 450 mg PO BID [facility] Last Admin: 12/13/23 09:40 Dose: 450 mg Lorazepam (Lorazepam 0.5 Mg Tablet) 0.5 mg PO DAILY PRN PRN Reason: severe anxiety Last Admin: 12/12/23 21:46 Dose: 0.5 mg Magnesium Hydroxide (Milk Of Magnesia 30 Ml Oral.Susp) 30 ml PO DAILY PRN PRN Reason: Constipation Melatonin (Melatonin 3 Mg Tablet) 3 mg PO BEDTIME [facility] Last Admin: 12/12/23 21:45 Dose: 3 mg Metformin HCl (Metformin Hcl 500 Mg Tablet) 500 mg PO BIDWM [facility] Last Admin: 12/13/23 09:40 Dose: 500 mg Pregabalin (Pregabalin 100 Mg Capsule) 100 mg PO BID [facility] Last Admin: 12/13/23 09:40 Dose: 100 mg Quetiapine Fumarate (Quetiapine Fumarate 100 Mg Tablet) 100 mg PO BEDTIME [facility] Last Admin: 12/12/23 21:46 Dose: 100 mg Allergies Allergies Allergy/AdvReac Type Severity Reaction Status Date / Time amoxicillin [AMOXICILLIN] Allergy Intermediate RASH Verified 08/29/22 14:43 azithromycin [AZITHROMYCIN] Allergy Intermediate RASH Verified 08/29/22 14:43 Clindamycin HCl Allergy Intermediate itch Verified 08/29/22 14:43 clonazepam [CLONAZEPAM] Allergy Intermediate RASH Verified 08/29/22 14:43 doxycycline [DOXYCYCLINE] Allergy Intermediate RASH Verified 08/29/22 14:43 ergocalciferol (vitamin D2) Allergy Intermediate RASH Verified 08/29/22 14:43 [From VITAMIN D2] guaifenesin [GUAIFENESIN] Allergy Intermediate RASH Verified 08/29/22 14:43 hydroxyzine [HYDROXYZINE] Allergy Intermediate RASH Verified 08/29/22 14:43 levofloxacin [LEVOFLOXACIN] Allergy Intermediate RASH Verified 08/29/22 14:43 metronidazole [From FLAGYL] Allergy Intermediate RASH Verified 08/29/22 14:43 omeprazole [OMEPRAZOLE] Allergy Intermediate RASH Verified 08/29/22 14:43 orlistat [From ALICIA] Allergy Intermediate RASH Verified 08/29/22 14:43 quetiapine [From SEROQUEL] Allergy Intermediate RASH Verified 08/29/22 14:43 ranitidine [RANITIDINE] Allergy Intermediate LIP Verified 08/29/22 14:43 NUMBNESS sulfamethoxazole Allergy Intermediate RASH Verified 08/29/22 14:43 [From BACTRIM] sumatriptan Allergy Intermediate rash Verified 08/29/22 14:43 trimethoprim [From BACTRIM] Allergy Intermediate RASH Verified 08/29/22 14:43 venlafaxine [From EFFEXOR] Allergy Intermediate RSH Verified 08/29/22 14:43 aripiprazole [From ABILIFY] 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 benzonatate AdvReac Severe Chest Pain Verified 08/29/22 14:43 haloperidol [From HALDOL] 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 Patient apparently believed her house was on fire and police, EMS, and eventually [facility] were called. Apparently patient was initially nonverbal when brought to the ED. Medical consult for admission H&P. Mood disorder Plan as per psychiatry HTN Continue amlodipine, carvedilol HLD Continue statin Hypothyroidism Continue levothyroxine Ytk-krbymyl-iuqgydpei type 2 diabetes Continue metformin Encourage diabetic diet (2) Bipolar 1 disorder: Status: Acute Code(s): F31.9 - Bipolar disorder, unspecified Plan 12/04: restart home meds. stabilize inpatient. T/C adding neuroleptic as needed. 12/05: refused meds last night, took them this morning. remains with paranoid delusions. continue to establish rapport. pt signed CV today, aware of need for 5 days of lithium and then check labs and clinical response. pt reports she is supposed to be taking lithium 300/450 rather than 450 BID, dosing changed accordingly. otherwise continue current mgmt. 12/06: no changes 12/07: no changes 12/08: presenting with inadequately addressed coty. check lithium/labs 12/10 maribell. continue current mgmt for now. 12/09: coty abating day by day. continue current mgmt, labs 12/10 maribell. continue current mgmt. 12/10: mental status appears quite clear. check labs tonight. may discharge tomorrow if labs good and continues to look well clinically. DC trazodone, do not give ambien, taper ativan, add seroquel 50 QHS. 12/11: lithium level 0.44. increase lithium dosing to 450 BID. also increase HS seroquel to 100 mg. otherwise continue current mgmt. 12/12: recheck lithium after 5 days. DC ativan PRN today, do not Rx ativan or ambien. appears to have become somewhat confused yesterday, concern for UTI. UA NEG today. continue current mgmt. Reason for continued inpatient stay Substantial Risk for: inability to function and rapid decompensation Time Spent With Patient Time: Total time managing care of this patient today __35__ minutes.
[2023-12-13 20:35] VITALS: BP 134/79; PULSE 76; RESP 18; TEMP 36.7; O2SAT 99
[2023-12-13] MEDS: Melatonin 3 MG TABLET PO (20:59)
[2023-12-13] MEDS: QUEtiapine Fumarate 100 MG TABLET PO (20:59)
[2023-12-14] MEDS: Levothyroxine Sodium 112 MCG TABLET PO (06:41)
--- NOTE | 2023-12-14 07:07 | PC.NURSE ---
Aspen awoke at approximately 23:15 and appeared confused. she was expressing concerns over having another person in the room with her. After seeing a peer wearing johnnies she attempted to strip in the hallway stating these are not mine, these are not my clothes patient was able to return to bed with no further incidents of confusion noted. patient awoke this morning alert and oriented
[2023-12-14 08:22] VITALS: BP 114/73; PULSE 62; RESP 18; TEMP 36.5; O2SAT 95
[2023-12-14 08:22] LABS: Glucose, Whole Blood 124 mg/dL (60-115)
[2023-12-14] MEDS: Pregabalin 100 MG CAPSULE PO ×2 (08:48→21:10)
[2023-12-14] MEDS: metFORMIN HCl 500 MG TABLET PO ×2 (08:49→17:34)
[2023-12-14] MEDS: amLODIPine Besylate 5 MG TABLET PO (08:49)
[2023-12-14] MEDS: Docusate Sodium 100 MG CAPSULE PO (08:49)
[2023-12-14] MEDS: Atorvastatin Calcium 10 MG TABLET PO (08:49)
[2023-12-14] MEDS: carvediloL 3.125 MG TABLET PO ×2 (08:49→21:10)
[2023-12-14] MEDS: Lithium Carbonate ER 450 MG TABLET.ER PO ×2 (08:49→21:10)
--- NOTE | 2023-12-14 11:38 | P.PNPSI_ITS ---
Subjective Subjective Date of Service: 12/14/23 Reason For Visit: Bipolar Interim History: met with patient. Discussed with Nursing. Has been more paranoid recently. Stating people have been using her name and copying her. Today reports that her son will hopefully visit today. Feels that staff are supportive. Also reports feeling bored and the people might be copying or impersonating her at times. Reluctant to discuss detail. Medication Compliance: Yes Side effects from medications: No Attending Groups: Intermittent Review of Systems Acute medical concerns: No Mental Status Exam Mental Status Exam Narrative: adequately dressed and groomed, in street clothes. cooperative. no PMA/PMR. speech nml amount, nml rate, nml loudness, decr latency. thoughts linear and logical, perhaps some paranoid delusions others on the unit are talking ill of her. affect constricted, normo-intense, non-labile. mood anxious. no SI/SIBI/HI/AVH expressed. Diagnostics Vital Signs (24Hr): Vital Signs - 24 hr 12/13/23 20:35 12/14/23 08:22 Temperature 98.1 F 97.7 F Pulse Rate 76 62 Respiratory Rate 18 18 Blood Pressure 134/79 114/73 Pulse Oximetry 99 95 Oxygen Delivery Method Room Air Room Air BMI result Body Mass Index 36.5 Labs 12/11/23 20:35 12/11/23 20:35 Labs: Laboratory Results - last 48 hr 12/13/23 12/14/23 11:00 08:17 POC Glucose 124 H Urine Color Yellow Urine Appearance Clear Urine pH 7.0 Ur Specific [place] 1.015 Urine Protein Negative Urine Glucose (UA) Negative Urine Ketones Negative Urine Blood Negative Urine Nitrite Negative Ur Leukocyte Esterase Trace H Urine RBC 0-2 Urine WBC 0-5 Ur Squamous Epith Cells 0-2 Urine Bacteria Trace Hyaline Casts 0-2 Medications Medications Current Medications Acetaminophen (Acetaminophen 325 Mg Tablet) 650 mg PO Q6H PRN PRN Reason: Headache/Pain Mild Scale (1-3) Last Admin: 12/10/23 11:33 Dose: 650 mg Al Hydroxide/Mg Hydroxide (Magnesium Hydrox/Alum Hydrox 30 Ml Oral.Susp) 30 ml PO Q6H PRN PRN Reason: Heartburn/Nausea Amlodipine Besylate (Amlodipine Besylate 5 Mg Tablet) 5 mg PO DAILY [facility]; Protocol Last Admin: 12/14/23 08:49 Dose: 5 mg Atorvastatin Calcium (Atorvastatin Calcium 10 Mg Tablet) 10 mg PO DAILY [facility] Last Admin: 12/14/23 08:49 Dose: 10 mg Carvedilol (Carvedilol 3.125 Mg Tablet) 3.125 mg PO BID [facility]; Protocol Last Admin: 12/14/23 08:49 Dose: 3.125 mg Docusate Sodium (Docusate Sodium 100 Mg Capsule) 100 mg PO DAILY [facility] Last Admin: 12/14/23 08:49 Dose: 100 mg Levothyroxine Sodium (Levothyroxine Sodium 112 Mcg Tablet) 112 mcg PO DAILY@0600 [facility] Last Admin: 12/14/23 06:41 Dose: 112 mcg [place] Carbonate ([place] Carbonate Er 450 Mg Tablet.Er) 450 mg PO BID [facility] Last Admin: 12/14/23 08:49 Dose: 450 mg Magnesium Hydroxide (Milk Of Magnesia 30 Ml Oral.Susp) 30 ml PO DAILY PRN PRN Reason: Constipation Melatonin (Melatonin 3 Mg Tablet) 3 mg PO BEDTIME [facility] Last Admin: 12/13/23 20:59 Dose: 3 mg Metformin HCl (Metformin Hcl 500 Mg Tablet) 500 mg PO BIDWM [facility] Last Admin: 12/14/23 08:49 Dose: 500 mg Pregabalin (Pregabalin 100 Mg Capsule) 100 mg PO BID [facility] Last Admin: 12/14/23 08:48 Dose: 100 mg Quetiapine Fumarate (Quetiapine Fumarate 100 Mg Tablet) 100 mg PO BEDTIME [facility] Last Admin: 12/13/23 20:59 Dose: 100 mg Allergies Allergies Allergy/AdvReac Type Severity Reaction Status Date / Time amoxicillin [AMOXICILLIN] Allergy Intermediate RASH Verified 08/29/22 14:43 azithromycin [AZITHROMYCIN] Allergy Intermediate RASH Verified 08/29/22 14:43 Clindamycin HCl Allergy Intermediate itch Verified 08/29/22 14:43 clonazepam [CLONAZEPAM] Allergy Intermediate RASH Verified 08/29/22 14:43 doxycycline [DOXYCYCLINE] Allergy Intermediate RASH Verified 08/29/22 14:43 ergocalciferol (vitamin D2) Allergy Intermediate RASH Verified 08/29/22 14:43 [From VITAMIN D2] guaifenesin [GUAIFENESIN] Allergy Intermediate RASH Verified 08/29/22 14:43 hydroxyzine [HYDROXYZINE] Allergy Intermediate RASH Verified 08/29/22 14:43 levofloxacin [LEVOFLOXACIN] Allergy Intermediate RASH Verified 08/29/22 14:43 metronidazole [From FLAGYL] Allergy Intermediate RASH Verified 08/29/22 14:43 omeprazole [OMEPRAZOLE] Allergy Intermediate RASH Verified 08/29/22 14:43 orlistat [From ALICIA] Allergy Intermediate RASH Verified 08/29/22 14:43 quetiapine [From SEROQUEL] Allergy Intermediate RASH Verified 08/29/22 14:43 ranitidine [RANITIDINE] Allergy Intermediate LIP Verified 08/29/22 14:43 NUMBNESS sulfamethoxazole Allergy Intermediate RASH Verified 08/29/22 14:43 [From BACTRIM] sumatriptan Allergy Intermediate rash Verified 08/29/22 14:43 trimethoprim [From BACTRIM] Allergy Intermediate RASH Verified 08/29/22 14:43 venlafaxine [From EFFEXOR] Allergy Intermediate RSH Verified 08/29/22 14:43 aripiprazole [From ABILIFY] 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 benzonatate AdvReac Severe Chest Pain Verified 08/29/22 14:43 haloperidol [From HALDOL] 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 Patient apparently believed her house was on fire and police, EMS, and eventually [facility] were called. Apparently patient was initially nonverbal when brought to the ED. Medical consult for admission H&P. Mood disorder Plan as per psychiatry HTN Continue amlodipine, carvedilol HLD Continue statin Hypothyroidism Continue levothyroxine Xbg-auoihle-mpstaxsnh type 2 diabetes Continue metformin Encourage diabetic diet (2) Bipolar 1 disorder: Status: Acute Code(s): F31.9 - Bipolar disorder, unspecified Plan 12/04: restart home meds. stabilize inpatient. T/C adding neuroleptic as needed. 12/05: refused meds last night, took them this morning. remains with paranoid delusions. continue to establish rapport. pt signed CV today, aware of need for 5 days of lithium and then check labs and clinical response. pt reports she is supposed to be taking lithium 300/450 rather than 450 BID, dosing changed accordingly. otherwise continue current mgmt. 12/06: no changes 12/07: no changes 12/08: presenting with inadequately addressed coty. check lithium/labs 12/10 maribell. continue current mgmt for now. 12/09: coty abating day by day. continue current mgmt, labs 12/10 maribell. continue current mgmt. 12/10: mental status appears quite clear. check labs tonight. may discharge tomorrow if labs good and continues to look well clinically. DC trazodone, do not give ambien, taper ativan, add seroquel 50 QHS. 12/11: lithium level 0.44. increase lithium dosing to 450 BID. also increase HS seroquel to 100 mg. otherwise continue current mgmt. 12/12: recheck lithium after 5 days. DC ativan PRN today, do not Rx ativan or ambien. appears to have become somewhat confused yesterday, concern for UTI. UA NEG today. continue current mgmt. 12/13: Increase Seroquel to 150 mg at bedtime Reason for continued inpatient stay Substantial Risk for: inability to function Time Spent With Patient Time: Total time managing care of this patient today ____ minutes.
[2023-12-14 21:05] VITALS: BP 132/80; PULSE 77; RESP 18; TEMP 36.8; O2SAT 100
[2023-12-14] MEDS: QUEtiapine Fumarate 50 MG TABLET 150 MG PO (21:10)
[2023-12-14] MEDS: Melatonin 3 MG TABLET PO (21:10)
[2023-12-15 06:00] VITALS: BP 106/69; PULSE 71; RESP 16; TEMP 36.8; O2SAT 97
[2023-12-15] MEDS: Levothyroxine Sodium 112 MCG TABLET PO (06:28)
[2023-12-15] MEDS: amLODIPine Besylate 5 MG TABLET PO (08:51)
[2023-12-15] MEDS: metFORMIN HCl 500 MG TABLET PO ×2 (08:51→17:45)
[2023-12-15] MEDS: Atorvastatin Calcium 10 MG TABLET PO (08:51)
[2023-12-15] MEDS: Docusate Sodium 100 MG CAPSULE PO (08:51)
[2023-12-15] MEDS: Lithium Carbonate ER 450 MG TABLET.ER PO ×2 (08:51→21:31)
[2023-12-15] MEDS: carvediloL 3.125 MG TABLET PO ×2 (08:51→21:30)
[2023-12-15] MEDS: Pregabalin 100 MG CAPSULE PO ×2 (08:55→21:30)
--- NOTE | 2023-12-15 11:40 | HO.PSYCHPN ---
Subjective Subjective Date of Service: 12/15/23 Reason For Visit: Bipolar Interim History: met with patient. Discussed with Nursing. Some paranoia, but less intense today. Still feels people are perhaps misleading her by speaking Nepali or Turkmen, when in fact they could speak the office of language. Feels that staff are supportive. Aware lithium level planned Medication Compliance: Yes Side effects from medications: No Attending Groups: Yes Review of Systems Acute medical concerns: No Review of Systems Review of Systems Nothing acute Mental Status Exam Mental Status Exam Narrative: adequately dressed and groomed, in street clothes. cooperative. no PMA/PMR. speech nml amount, nml rate, nml loudness, decr latency. thoughts linear and logical, perhaps some paranoia. Affect constricted, normo-intense, non-labile. mood anxious. no SI/SIBI/HI/AVH expressed. Diagnostics Vital Signs (24Hr): Vital Signs - 24 hr 12/14/23 21:05 12/15/23 06:00 Temperature 98.3 F 98.3 F Pulse Rate 77 71 Respiratory Rate 18 16 Blood Pressure 132/80 106/69 Pulse Oximetry 100 97 Oxygen Delivery Method Room Air Room Air BMI result Body Mass Index 36.5 Labs 12/11/23 20:35 12/11/23 20:35 Labs: Laboratory Results - last 48 hr 12/13/23 12/14/23 11:00 08:17 POC Glucose 124 H Urine RBC 0-2 Urine WBC 0-5 Ur Squamous Epith Cells 0-2 Urine Bacteria Trace Hyaline Casts 0-2 Medications Medications Current Medications Acetaminophen (Acetaminophen 325 Mg Tablet) 650 mg PO Q6H PRN PRN Reason: Headache/Pain Mild Scale (1-3) Last Admin: 12/10/23 11:33 Dose: 650 mg Al Hydroxide/Mg Hydroxide (Magnesium Hydrox/Alum Hydrox 30 Ml Oral.Susp) 30 ml PO Q6H PRN PRN Reason: Heartburn/Nausea Amlodipine Besylate (Amlodipine Besylate 5 Mg Tablet) 5 mg PO DAILY [facility]; Protocol Last Admin: 12/15/23 08:51 Dose: 5 mg Atorvastatin Calcium (Atorvastatin Calcium 10 Mg Tablet) 10 mg PO DAILY [facility] Last Admin: 12/15/23 08:51 Dose: 10 mg Carvedilol (Carvedilol 3.125 Mg Tablet) 3.125 mg PO BID [facility]; Protocol Last Admin: 12/15/23 08:51 Dose: 3.125 mg Docusate Sodium (Docusate Sodium 100 Mg Capsule) 100 mg PO DAILY [facility] Last Admin: 12/15/23 08:51 Dose: 100 mg Levothyroxine Sodium (Levothyroxine Sodium 112 Mcg Tablet) 112 mcg PO DAILY@0600 [facility] Last Admin: 12/15/23 06:28 Dose: 112 mcg [place] Carbonate ([place] Carbonate Er 450 Mg Tablet.Er) 450 mg PO BID [facility] Last Admin: 12/15/23 08:51 Dose: 450 mg Magnesium Hydroxide (Milk Of Magnesia 30 Ml Oral.Susp) 30 ml PO DAILY PRN PRN Reason: Constipation Melatonin (Melatonin 3 Mg Tablet) 3 mg PO BEDTIME [facility] Last Admin: 12/14/23 21:10 Dose: 3 mg Metformin HCl (Metformin Hcl 500 Mg Tablet) 500 mg PO BIDWM [facility] Last Admin: 12/15/23 08:51 Dose: 500 mg Pregabalin (Pregabalin 100 Mg Capsule) 100 mg PO BID [facility] Last Admin: 12/15/23 08:55 Dose: 100 mg Quetiapine Fumarate (Quetiapine Fumarate 50 Mg Tablet) 150 mg PO BEDTIME [facility] Last Admin: 12/14/23 21:10 Dose: 150 mg Allergies Allergies Allergy/AdvReac Type Severity Reaction Status Date / Time amoxicillin [AMOXICILLIN] Allergy Intermediate RASH Verified 08/29/22 14:43 azithromycin [AZITHROMYCIN] Allergy Intermediate RASH Verified 08/29/22 14:43 Clindamycin HCl Allergy Intermediate itch Verified 08/29/22 14:43 clonazepam [CLONAZEPAM] Allergy Intermediate RASH Verified 08/29/22 14:43 doxycycline [DOXYCYCLINE] Allergy Intermediate RASH Verified 08/29/22 14:43 ergocalciferol (vitamin D2) Allergy Intermediate RASH Verified 08/29/22 14:43 [From VITAMIN D2] guaifenesin [GUAIFENESIN] Allergy Intermediate RASH Verified 08/29/22 14:43 hydroxyzine [HYDROXYZINE] Allergy Intermediate RASH Verified 08/29/22 14:43 levofloxacin [LEVOFLOXACIN] Allergy Intermediate RASH Verified 08/29/22 14:43 metronidazole [From FLAGYL] Allergy Intermediate RASH Verified 08/29/22 14:43 omeprazole [OMEPRAZOLE] Allergy Intermediate RASH Verified 08/29/22 14:43 orlistat [From ALICIA] Allergy Intermediate RASH Verified 08/29/22 14:43 quetiapine [From SEROQUEL] Allergy Intermediate RASH Verified 08/29/22 14:43 ranitidine [RANITIDINE] Allergy Intermediate LIP Verified 08/29/22 14:43 NUMBNESS sulfamethoxazole Allergy Intermediate RASH Verified 08/29/22 14:43 [From BACTRIM] sumatriptan Allergy Intermediate rash Verified 08/29/22 14:43 trimethoprim [From BACTRIM] Allergy Intermediate RASH Verified 08/29/22 14:43 venlafaxine [From EFFEXOR] Allergy Intermediate RSH Verified 08/29/22 14:43 aripiprazole [From ABILIFY] 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 benzonatate AdvReac Severe Chest Pain Verified 08/29/22 14:43 haloperidol [From HALDOL] 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 Patient apparently believed her house was on fire and police, EMS, and eventually [facility] were called. Apparently patient was initially nonverbal when brought to the ED. Medical consult for admission H&P. Mood disorder Plan as per psychiatry HTN Continue amlodipine, carvedilol HLD Continue statin Hypothyroidism Continue levothyroxine Bwl-tlstuno-kwneokddk type 2 diabetes Continue metformin Encourage diabetic diet (2) Bipolar 1 disorder: Status: Acute Code(s): F31.9 - Bipolar disorder, unspecified Plan 12/04: restart home meds. stabilize inpatient. T/C adding neuroleptic as needed. 12/05: refused meds last night, took them this morning. remains with paranoid delusions. continue to establish rapport. pt signed CV today, aware of need for 5 days of lithium and then check labs and clinical response. pt reports she is supposed to be taking lithium 300/450 rather than 450 BID, dosing changed accordingly. otherwise continue current mgmt. 12/06: no changes 12/07: no changes 12/08: presenting with inadequately addressed coty. check lithium/labs 12/10 maribell. continue current mgmt for now. 12/09: coty abating day by day. continue current mgmt, labs 12/10 maribell. continue current mgmt. 12/10: mental status appears quite clear. check labs tonight. may discharge tomorrow if labs good and continues to look well clinically. DC trazodone, do not give ambien, taper ativan, add seroquel 50 QHS. 12/11: lithium level 0.44. increase lithium dosing to 450 BID. also increase HS seroquel to 100 mg. otherwise continue current mgmt. 12/12: recheck lithium after 5 days. DC ativan PRN today, do not Rx ativan or ambien. appears to have become somewhat confused yesterday, concern for UTI. UA NEG today. continue current mgmt. 12/13: Increase Seroquel to 150 mg at bedtime 12/14: no change. [place] level 12/17 Reason for continued inpatient stay Substantial Risk for: inability to function Time Spent With Patient Time: Total time managing care of this patient today ____ minutes.
[2023-12-15 21:30] VITALS: BP 124/61; PULSE 89; RESP 16; TEMP 36.4; O2SAT 100
[2023-12-15] MEDS: Melatonin 3 MG TABLET PO (21:31)
[2023-12-15] MEDS: QUEtiapine Fumarate 50 MG TABLET 150 MG PO (21:32)
[2023-12-16] MEDS: Levothyroxine Sodium 112 MCG TABLET PO (06:31)
[2023-12-16 07:27] VITALS: BP 124/71; PULSE 69; RESP 16; TEMP 36.9; O2SAT 97
[2023-12-16] MEDS: Docusate Sodium 100 MG CAPSULE PO (08:35)
[2023-12-16] MEDS: Atorvastatin Calcium 10 MG TABLET PO (08:35)
[2023-12-16] MEDS: Pregabalin 100 MG CAPSULE PO ×2 (08:35→21:05)
[2023-12-16] MEDS: carvediloL 3.125 MG TABLET PO ×2 (08:35→21:05)
[2023-12-16] MEDS: metFORMIN HCl 500 MG TABLET PO ×2 (08:35→17:11)
[2023-12-16] MEDS: Lithium Carbonate ER 450 MG TABLET.ER PO ×2 (08:35→21:05)
[2023-12-16] MEDS: amLODIPine Besylate 5 MG TABLET PO (08:35)
--- NOTE | 2023-12-16 10:56 | HO.PSYCHPN ---
Subjective Subjective Date of Service: 12/16/23 Reason For Visit: Bipolar Subjective Notes: Conditional Voluntary Interim History: Pt slept through the night. she reports she feels less depressed. She wonders when she will have next lithium level drawn as she states her dose was recently increase because levels were low. She denies SI/HI. She reports sleeping better. No behavioral concerns. Review of Systems Review of Systems Nothing acute Mental Status Exam Mental Status Exam Narrative: adequately dressed and groomed, in street clothes. cooperative. no PMA/PMR. speech nml amount, nml rate, nml loudness, decr latency. thoughts linear and logical, perhaps some paranoia. Affect constricted, normo-intense, non-labile. mood anxious. no SI/SIBI/HI/AVH expressed. Diagnostics Vital Signs (24Hr): Vital Signs - 24 hr 12/15/23 21:30 12/16/23 07:27 Temperature 97.6 F 98.4 F Pulse Rate 89 69 Respiratory Rate 16 16 Blood Pressure 124/61 124/71 Pulse Oximetry 100 97 Oxygen Delivery Method Room Air Room Air BMI result Body Mass Index 36.5 Labs 12/11/23 20:35 12/11/23 20:35 Medications Medications Current Medications Acetaminophen (Acetaminophen 325 Mg Tablet) 650 mg PO Q6H PRN PRN Reason: Headache/Pain Mild Scale (1-3) Last Admin: 12/10/23 11:33 Dose: 650 mg Al Hydroxide/Mg Hydroxide (Magnesium Hydrox/Alum Hydrox 30 Ml Oral.Susp) 30 ml PO Q6H PRN PRN Reason: Heartburn/Nausea Amlodipine Besylate (Amlodipine Besylate 5 Mg Tablet) 5 mg PO DAILY [facility]; Protocol Last Admin: 12/16/23 08:35 Dose: 5 mg Atorvastatin Calcium (Atorvastatin Calcium 10 Mg Tablet) 10 mg PO DAILY [facility] Last Admin: 12/16/23 08:35 Dose: 10 mg Carvedilol (Carvedilol 3.125 Mg Tablet) 3.125 mg PO BID [facility]; Protocol Last Admin: 12/16/23 08:35 Dose: 3.125 mg Docusate Sodium (Docusate Sodium 100 Mg Capsule) 100 mg PO DAILY [facility] Last Admin: 12/16/23 08:35 Dose: 100 mg Levothyroxine Sodium (Levothyroxine Sodium 112 Mcg Tablet) 112 mcg PO DAILY@0600 [facility] Last Admin: 12/16/23 06:31 Dose: 112 mcg [place] Carbonate ([place] Carbonate Er 450 Mg Tablet.Er) 450 mg PO BID [facility] Last Admin: 12/16/23 08:35 Dose: 450 mg Magnesium Hydroxide (Milk Of Magnesia 30 Ml Oral.Susp) 30 ml PO DAILY PRN PRN Reason: Constipation Melatonin (Melatonin 3 Mg Tablet) 3 mg PO BEDTIME [facility] Last Admin: 12/15/23 21:31 Dose: 3 mg Metformin HCl (Metformin Hcl 500 Mg Tablet) 500 mg PO BIDWM [facility] Last Admin: 12/16/23 08:35 Dose: 500 mg Pregabalin (Pregabalin 100 Mg Capsule) 100 mg PO BID [facility] Last Admin: 12/16/23 08:35 Dose: 100 mg Quetiapine Fumarate (Quetiapine Fumarate 50 Mg Tablet) 150 mg PO BEDTIME [facility] Last Admin: 12/15/23 21:32 Dose: 150 mg Allergies Allergies Allergy/AdvReac Type Severity Reaction Status Date / Time amoxicillin [AMOXICILLIN] Allergy Intermediate RASH Verified 08/29/22 14:43 azithromycin [AZITHROMYCIN] Allergy Intermediate RASH Verified 08/29/22 14:43 Clindamycin HCl Allergy Intermediate itch Verified 08/29/22 14:43 clonazepam [CLONAZEPAM] Allergy Intermediate RASH Verified 08/29/22 14:43 doxycycline [DOXYCYCLINE] Allergy Intermediate RASH Verified 08/29/22 14:43 ergocalciferol (vitamin D2) Allergy Intermediate RASH Verified 08/29/22 14:43 [From VITAMIN D2] guaifenesin [GUAIFENESIN] Allergy Intermediate RASH Verified 08/29/22 14:43 hydroxyzine [HYDROXYZINE] Allergy Intermediate RASH Verified 08/29/22 14:43 levofloxacin [LEVOFLOXACIN] Allergy Intermediate RASH Verified 08/29/22 14:43 metronidazole [From FLAGYL] Allergy Intermediate RASH Verified 08/29/22 14:43 omeprazole [OMEPRAZOLE] Allergy Intermediate RASH Verified 08/29/22 14:43 orlistat [From ALICIA] Allergy Intermediate RASH Verified 08/29/22 14:43 quetiapine [From SEROQUEL] Allergy Intermediate RASH Verified 08/29/22 14:43 ranitidine [RANITIDINE] Allergy Intermediate LIP Verified 08/29/22 14:43 NUMBNESS sulfamethoxazole Allergy Intermediate RASH Verified 08/29/22 14:43 [From BACTRIM] sumatriptan Allergy Intermediate rash Verified 08/29/22 14:43 trimethoprim [From BACTRIM] Allergy Intermediate RASH Verified 08/29/22 14:43 venlafaxine [From EFFEXOR] Allergy Intermediate RSH Verified 08/29/22 14:43 aripiprazole [From ABILIFY] 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 stabilize inpatient. T/C adding neuroleptic as needed. 12/05: refused meds last night, took them this morning. remains with paranoid delusions. continue to establish rapport. pt signed CV today, aware of need for 5 days of lithium and then check labs and clinical response. pt reports she is supposed to be taking lithium 300/450 rather than 450 BID, dosing changed accordingly. otherwise continue current mgmt. 12/06: no changes 12/07: no changes 12/08: presenting with inadequately addressed coty. check lithium/labs 12/10 maribell. continue current mgmt for now. 12/09: coty abating day by day. continue current mgmt, labs 12/10 maribell. continue current mgmt. 12/10: mental status appears quite clear. check labs tonight. may discharge tomorrow if labs good and continues to look well clinically. DC trazodone, do not give ambien, taper ativan, add seroquel 50 QHS. 12/11: lithium level 0.44. increase lithium dosing to 450 BID. also increase HS seroquel to 100 mg. otherwise continue current mgmt. 12/12: recheck lithium after 5 days. DC ativan PRN today, do not Rx ativan or ambien. appears to have become somewhat confused yesterday, concern for UTI. UA NEG today. continue current mgmt. 12/13: Increase Seroquel to 150 mg at bedtime 12/14: no change. [place] level 12/17 12/15 continue tx. Reason for continued inpatient stay Substantial Risk for: inability to function Time Spent With Patient Time: Total time managing care of this patient today ____ minutes.
[2023-12-16] MEDS: Acetaminophen 325 MG TABLET 650 MG PO (20:19)
--- NOTE | 2023-12-16 20:21 | PC.NURSE ---
Aspen was given Tylenol PO prn for lower back pain 3-01/09
[2023-12-16 21:00] VITALS: BP 139/74; PULSE 81; RESP 16; TEMP 36.9; O2SAT 97
[2023-12-16] MEDS: Melatonin 3 MG TABLET PO (21:05)
[2023-12-16] MEDS: QUEtiapine Fumarate 50 MG TABLET 150 MG PO (21:06)
[2023-12-17] MEDS: Levothyroxine Sodium 112 MCG TABLET PO (06:51)
[2023-12-17 07:32] VITALS: BP 131/84; PULSE 68; RESP 16; TEMP 36.3; O2SAT 100
[2023-12-17] MEDS: carvediloL 3.125 MG TABLET PO ×2 (08:25→21:28)
[2023-12-17] MEDS: amLODIPine Besylate 5 MG TABLET PO (08:25)
[2023-12-17] MEDS: metFORMIN HCl 500 MG TABLET PO ×2 (08:25→16:56)
[2023-12-17] MEDS: Pregabalin 100 MG CAPSULE PO ×2 (08:25→21:28)
[2023-12-17] MEDS: Docusate Sodium 100 MG CAPSULE PO (08:26)
[2023-12-17] MEDS: Lithium Carbonate ER 450 MG TABLET.ER PO ×2 (08:26→21:28)
[2023-12-17] MEDS: Atorvastatin Calcium 10 MG TABLET PO (08:26)
--- NOTE | 2023-12-17 11:21 | HO.PSYCHPN ---
Subjective Subjective Date of Service: 12/17/23 Reason For Visit: Bipolar Subjective Notes: Conditional Voluntary Interim History: Reviewed with Dr. Cohen. Pt reports feeling good today; pt stated, I want to make sure my lithium level is good before I go. I'm not depressed. I'm just anxious because I haven't paid my rent and I cry because I want to go home . Pt denies SI/HI/VH/AH. Labs to be drawn tomorrow morning. Medication Compliance: Yes Side effects from medications: No Attending Groups: Yes Review of Systems Constitutional: Reports as per HPI Eyes: Reports as per HPI Reports as per HPI Cardiovascular: Reports as per HPI Respiratory: Reports as per HPI Gastrointestinal: Reports as per HPI Genitourinary: Reports as per HPI Musculoskeletal: Reports as per HPI Skin/Breast: Reports as per HPI Reports as per HPI Psychiatric: Reports as per HPI Endocrine: Reports as per HPI Hematologic/Lymphatic: Reports as per HPI Allergic/Immunologic: Reports as per HPI Mental Status Exam Mental Status Exam Narrative: Pt is alert and oriented; behavior is cooperative, friendly and calm; dressed in casual attire; mood is described as good ; eye contact appropriate; Speech is normal rate, volume and prosody and not pressured; thought process is organized and goal directed; Thought content is on tx; denies SI/HI/VH/AH. Diagnostics Vital Signs (24Hr): Vital Signs - 24 hr 12/16/23 21:00 12/17/23 07:32 Temperature 98.4 F 97.4 F Pulse Rate 81 68 Respiratory Rate 16 16 Blood Pressure 139/74 131/84 Pulse Oximetry 97 100 Oxygen Delivery Method Room Air Room Air BMI result Body Mass Index 36.5 Labs 12/11/23 20:35 12/11/23 20:35 Medications Medications Current Medications Acetaminophen (Acetaminophen 325 Mg Tablet) 650 mg PO Q6H PRN PRN Reason: Headache/Pain Mild Scale (1-3) Last Admin: 12/16/23 20:19 Dose: 650 mg Al Hydroxide/Mg Hydroxide (Magnesium Hydrox/Alum Hydrox 30 Ml Oral.Susp) 30 ml PO Q6H PRN PRN Reason: Heartburn/Nausea Amlodipine Besylate (Amlodipine Besylate 5 Mg Tablet) 5 mg PO DAILY [facility]; Protocol Last Admin: 12/17/23 08:25 Dose: 5 mg Atorvastatin Calcium (Atorvastatin Calcium 10 Mg Tablet) 10 mg PO DAILY [facility] Last Admin: 12/17/23 08:26 Dose: 10 mg Carvedilol (Carvedilol 3.125 Mg Tablet) 3.125 mg PO BID [facility]; Protocol Last Admin: 12/17/23 08:25 Dose: 3.125 mg Docusate Sodium (Docusate Sodium 100 Mg Capsule) 100 mg PO DAILY [facility] Last Admin: 12/17/23 08:26 Dose: 100 mg Levothyroxine Sodium (Levothyroxine Sodium 112 Mcg Tablet) 112 mcg PO DAILY@0600 [facility] Last Admin: 12/17/23 06:51 Dose: 112 mcg [place] Carbonate ([place] Carbonate Er 450 Mg Tablet.Er) 450 mg PO BID [facility] Last Admin: 12/17/23 08:26 Dose: 450 mg Magnesium Hydroxide (Milk Of Magnesia 30 Ml Oral.Susp) 30 ml PO DAILY PRN PRN Reason: Constipation Melatonin (Melatonin 3 Mg Tablet) 3 mg PO BEDTIME [facility] Last Admin: 12/16/23 21:05 Dose: 3 mg Metformin HCl (Metformin Hcl 500 Mg Tablet) 500 mg PO BIDWM [facility] Last Admin: 12/17/23 08:25 Dose: 500 mg Pregabalin (Pregabalin 100 Mg Capsule) 100 mg PO BID [facility] Last Admin: 12/17/23 08:25 Dose: 100 mg Quetiapine Fumarate (Quetiapine Fumarate 50 Mg Tablet) 150 mg PO BEDTIME [facility] Last Admin: 12/16/23 21:06 Dose: 150 mg Allergies Allergies Allergy/AdvReac Type Severity Reaction Status Date / Time amoxicillin [AMOXICILLIN] Allergy Intermediate RASH Verified 08/29/22 14:43 azithromycin [AZITHROMYCIN] Allergy Intermediate RASH Verified 08/29/22 14:43 Clindamycin HCl Allergy Intermediate itch Verified 08/29/22 14:43 clonazepam [CLONAZEPAM] Allergy Intermediate RASH Verified 08/29/22 14:43 doxycycline [DOXYCYCLINE] Allergy Intermediate RASH Verified 08/29/22 14:43 ergocalciferol (vitamin D2) Allergy Intermediate RASH Verified 08/29/22 14:43 [From VITAMIN D2] guaifenesin [GUAIFENESIN] Allergy Intermediate RASH Verified 08/29/22 14:43 hydroxyzine [HYDROXYZINE] Allergy Intermediate RASH Verified 08/29/22 14:43 levofloxacin [LEVOFLOXACIN] Allergy Intermediate RASH Verified 08/29/22 14:43 metronidazole [From FLAGYL] Allergy Intermediate RASH Verified 08/29/22 14:43 omeprazole [OMEPRAZOLE] Allergy Intermediate RASH Verified 08/29/22 14:43 orlistat [From ALICIA] Allergy Intermediate RASH Verified 08/29/22 14:43 quetiapine [From SEROQUEL] Allergy Intermediate RASH Verified 08/29/22 14:43 ranitidine [RANITIDINE] Allergy Intermediate LIP Verified 08/29/22 14:43 NUMBNESS sulfamethoxazole Allergy Intermediate RASH Verified 08/29/22 14:43 [From BACTRIM] sumatriptan Allergy Intermediate rash Verified 08/29/22 14:43 trimethoprim [From BACTRIM] Allergy Intermediate RASH Verified 08/29/22 14:43 venlafaxine [From EFFEXOR] Allergy Intermediate RSH Verified 08/29/22 14:43 aripiprazole [From ABILIFY] 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 stabilize inpatient. T/C adding neuroleptic as needed. 12/05: refused meds last night, took them this morning. remains with paranoid delusions. continue to establish rapport. pt signed CV today, aware of need for 5 days of lithium and then check labs and clinical response. pt reports she is supposed to be taking lithium 300/450 rather than 450 BID, dosing changed accordingly. otherwise continue current mgmt. 12/06: no changes 12/07: no changes 12/08: presenting with inadequately addressed coty. check lithium/labs 12/10 maribell. continue current mgmt for now. 12/09: coty abating day by day. continue current mgmt, labs 12/10 maribell. continue current mgmt. 12/10: mental status appears quite clear. check labs tonight. may discharge tomorrow if labs good and continues to look well clinically. DC trazodone, do not give ambien, taper ativan, add seroquel 50 QHS. 12/11: lithium level 0.44. increase lithium dosing to 450 BID. also increase HS seroquel to 100 mg. otherwise continue current mgmt. 12/12: recheck lithium after 5 days. DC ativan PRN today, do not Rx ativan or ambien. appears to have become somewhat confused yesterday, concern for UTI. UA NEG today. continue current mgmt. 12/13: Increase Seroquel to 150 mg at bedtime 12/14: no change. [place] level 12/17 12/15 continue tx. 12/16: Pt reports feeling good today; pt stated, I want to make sure my lithium level is good before I go. I'm not depressed. I'm just anxious because I haven't paid my rent and I cry because I want to go home . Pt denies SI/HI/VH/AH. Labs to be drawn tomorrow morning. Patient educated on: diagnosis and medication risk/benefits Informed Consent: understands Reason for continued inpatient stay Substantial Risk for: med/psych decompensation Time Spent With Patient Time: Total time managing care of this patient today _20___ minutes.
[2023-12-17 19:50] VITALS: BP 144/65; PULSE 80; RESP 16; TEMP 36.8; O2SAT 99
[2023-12-17] MEDS: QUEtiapine Fumarate 50 MG TABLET 150 MG PO (21:28)
[2023-12-17] MEDS: Melatonin 3 MG TABLET PO (21:28)
[2023-12-18 06:00] VITALS: BP 128/71; PULSE 74; RESP 16; TEMP 37; O2SAT 97
[2023-12-18] MEDS: Levothyroxine Sodium 112 MCG TABLET PO (06:27)
[2023-12-18] MEDS: metFORMIN HCl 500 MG TABLET PO ×2 (08:28→16:59)
[2023-12-18] MEDS: Docusate Sodium 100 MG CAPSULE PO (08:29)
[2023-12-18] MEDS: carvediloL 3.125 MG TABLET PO ×2 (08:29→22:03)
[2023-12-18] MEDS: amLODIPine Besylate 5 MG TABLET PO (08:29)
[2023-12-18] MEDS: Pregabalin 100 MG CAPSULE PO ×2 (08:29→22:03)
[2023-12-18] MEDS: Atorvastatin Calcium 10 MG TABLET PO (08:29)
[2023-12-18 08:33] VITALS: BP 128/71; PULSE 74; RESP 20; TEMP 37; O2SAT 97
[2023-12-18 08:57] LABS: Lithium 0.69 mmol/L (0.60-1.20)
[2023-12-18 09:08] LABS: Anion Gap 12 (12-20); Blood Urea Nitrogen 9 mg/dL (9-16); Carbon Dioxide 26 mmol/L (22-29); Chloride 103 mmol/L (96-108); Creatinine Clr Calc Pharmacy 84.5; Estimated Glomerular Filt Rate > 60; Potassium 4.4 mmol/L (3.3-5.1); Sodium 137 mmol/L (135-145)
[2023-12-18] MEDS: Lithium Carbonate ER 450 MG TABLET.ER PO ×2 (09:11→22:03)
--- NOTE | 2023-12-18 09:11 | HO.PSYCHPN ---
Subjective Subjective Date of Service: 12/18/23 Reason For Visit: Bipolar Subjective Notes: Conditional Voluntary Interim History: Reviewed with Dr. Cohen. Pt reports feeling good today; pt stated, I'm good. I'm just bored here. I want to go back to my apartment . Pt denies SI/HI/VH/AH. [place] level 0.69 today. Planning for discharge for Saturday. Medication Compliance: Yes Side effects from medications: No Attending Groups: Yes Review of Systems Constitutional: Reports as per HPI Eyes: Reports as per HPI Reports as per HPI Cardiovascular: Reports as per HPI Respiratory: Reports as per HPI Gastrointestinal: Reports as per HPI Genitourinary: Reports as per HPI Musculoskeletal: Reports as per HPI Skin/Breast: Reports as per HPI Reports as per HPI Psychiatric: Reports as per HPI Endocrine: Reports as per HPI Hematologic/Lymphatic: Reports as per HPI Allergic/Immunologic: Reports as per HPI Mental Status Exam Mental Status Exam Narrative: Pt is alert and oriented; behavior is cooperative, friendly and calm; dressed in casual attire; mood is described as good ; eye contact appropriate; Speech is normal rate, volume and prosody and not pressured; thought process is organized and goal directed; Thought content is on tx; denies SI/HI/VH/AH. Diagnostics Vital Signs (24Hr): Vital Signs - 24 hr 12/17/23 19:50 12/18/23 06:00 12/18/23 08:33 Temperature 98.2 F 98.6 F 98.6 F Pulse Rate 80 74 74 Respiratory Rate 16 16 20 Blood Pressure 144/65 H 128/71 128/71 Pulse Oximetry 99 97 97 Oxygen Delivery Method Room Air Room Air Room Air BMI result Body Mass Index 36.5 Labs 12/11/23 20:35 12/18/23 08:28 Labs: Laboratory Results - last 48 hr 12/18/23 08:28 Sodium 137 Potassium 4.4 Chloride 103 Carbon Dioxide 26 Anion Gap 12 BUN 9 Creatinine 0.68 Estim Creat Clear Calc 84.5 Estimated GFR > 60 [place] 0.69 Medications Medications Current Medications Acetaminophen (Acetaminophen 325 Mg Tablet) 650 mg PO Q6H PRN PRN Reason: Headache/Pain Mild Scale (1-3) Last Admin: 12/16/23 20:19 Dose: 650 mg Al Hydroxide/Mg Hydroxide (Magnesium Hydrox/Alum Hydrox 30 Ml Oral.Susp) 30 ml PO Q6H PRN PRN Reason: Heartburn/Nausea Amlodipine Besylate (Amlodipine Besylate 5 Mg Tablet) 5 mg PO DAILY [facility]; Protocol Last Admin: 12/18/23 08:29 Dose: 5 mg Atorvastatin Calcium (Atorvastatin Calcium 10 Mg Tablet) 10 mg PO DAILY [facility] Last Admin: 12/18/23 08:29 Dose: 10 mg Carvedilol (Carvedilol 3.125 Mg Tablet) 3.125 mg PO BID [facility]; Protocol Last Admin: 12/18/23 08:29 Dose: 3.125 mg Docusate Sodium (Docusate Sodium 100 Mg Capsule) 100 mg PO DAILY [facility] Last Admin: 12/18/23 08:29 Dose: 100 mg Levothyroxine Sodium (Levothyroxine Sodium 112 Mcg Tablet) 112 mcg PO DAILY@0600 [facility] Last Admin: 12/18/23 06:27 Dose: 112 mcg [place] Carbonate ([place] Carbonate Er 450 Mg Tablet.Er) 450 mg PO BID [facility] Last Admin: 12/18/23 09:11 Dose: 450 mg Magnesium Hydroxide (Milk Of Magnesia 30 Ml Oral.Susp) 30 ml PO DAILY PRN PRN Reason: Constipation Melatonin (Melatonin 3 Mg Tablet) 3 mg PO BEDTIME [facility] Last Admin: 12/17/23 21:28 Dose: 3 mg Metformin HCl (Metformin Hcl 500 Mg Tablet) 500 mg PO BIDWM [facility] Last Admin: 12/18/23 08:28 Dose: 500 mg Pregabalin (Pregabalin 100 Mg Capsule) 100 mg PO BID [facility] Last Admin: 12/18/23 08:29 Dose: 100 mg Quetiapine Fumarate (Quetiapine Fumarate 50 Mg Tablet) 150 mg PO BEDTIME [facility] Last Admin: 12/17/23 21:28 Dose: 150 mg Allergies Allergies Allergy/AdvReac Type Severity Reaction Status Date / Time amoxicillin [AMOXICILLIN] Allergy Intermediate RASH Verified 08/29/22 14:43 azithromycin [AZITHROMYCIN] Allergy Intermediate RASH Verified 08/29/22 14:43 Clindamycin HCl Allergy Intermediate itch Verified 08/29/22 14:43 clonazepam [CLONAZEPAM] Allergy Intermediate RASH Verified 08/29/22 14:43 doxycycline [DOXYCYCLINE] Allergy Intermediate RASH Verified 08/29/22 14:43 ergocalciferol (vitamin D2) Allergy Intermediate RASH Verified 08/29/22 14:43 [From VITAMIN D2] guaifenesin [GUAIFENESIN] Allergy Intermediate RASH Verified 08/29/22 14:43 hydroxyzine [HYDROXYZINE] Allergy Intermediate RASH Verified 08/29/22 14:43 levofloxacin [LEVOFLOXACIN] Allergy Intermediate RASH Verified 08/29/22 14:43 metronidazole [From FLAGYL] Allergy Intermediate RASH Verified 08/29/22 14:43 omeprazole [OMEPRAZOLE] Allergy Intermediate RASH Verified 08/29/22 14:43 orlistat [From ALICIA] Allergy Intermediate RASH Verified 08/29/22 14:43 quetiapine [From SEROQUEL] Allergy Intermediate RASH Verified 08/29/22 14:43 ranitidine [RANITIDINE] Allergy Intermediate LIP Verified 08/29/22 14:43 NUMBNESS sulfamethoxazole Allergy Intermediate RASH Verified 08/29/22 14:43 [From BACTRIM] sumatriptan Allergy Intermediate rash Verified 08/29/22 14:43 trimethoprim [From BACTRIM] Allergy Intermediate RASH Verified 08/29/22 14:43 venlafaxine [From EFFEXOR] Allergy Intermediate RSH Verified 08/29/22 14:43 aripiprazole [From ABILIFY] 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 stabilize inpatient. T/C adding neuroleptic as needed. 12/05: refused meds last night, took them this morning. remains with paranoid delusions. continue to establish rapport. pt signed CV today, aware of need for 5 days of lithium and then check labs and clinical response. pt reports she is supposed to be taking lithium 300/450 rather than 450 BID, dosing changed accordingly. otherwise continue current mgmt. 12/06: no changes 12/07: no changes 12/08: presenting with inadequately addressed coty. check lithium/labs 12/10 maribell. continue current mgmt for now. 12/09: coty abating day by day. continue current mgmt, labs 12/10 maribell. continue current mgmt. 12/10: mental status appears quite clear. check labs tonight. may discharge tomorrow if labs good and continues to look well clinically. DC trazodone, do not give ambien, taper ativan, add seroquel 50 QHS. 12/11: lithium level 0.44. increase lithium dosing to 450 BID. also increase HS seroquel to 100 mg. otherwise continue current mgmt. 12/12: recheck lithium after 5 days. DC ativan PRN today, do not Rx ativan or ambien. appears to have become somewhat confused yesterday, concern for UTI. UA NEG today. continue current mgmt. 12/13: Increase Seroquel to 150 mg at bedtime 12/14: no change. [place] level 12/17 12/15 continue tx. 12/16: Pt reports feeling good today; pt stated, I want to make sure my lithium level is good before I go. I'm not depressed. I'm just anxious because I haven't paid my rent and I cry because I want to go home . Pt denies SI/HI/VH/AH. Labs to be drawn tomorrow morning. 12/17:Pt reports feeling good today; pt stated, I'm good. I'm just bored here. I want to go back to my apartment . Pt denies SI/HI/VH/AH. [place] level 0.69 today. Planning for discharge for Saturday. Patient educated on: diagnosis, medication risk/benefits and therapeutic strategies Informed Consent: understands Reason for continued inpatient stay Substantial Risk for: med/psych decompensation Time Spent With Patient Time: Total time managing care of this patient today _20___ minutes.
[2023-12-18 20:00] VITALS: BP 159/84; PULSE 84; RESP 16; TEMP 38.8; O2SAT 97
[2023-12-18 21:22] LABS: Influenza A PCR NEGATIVE (Negative); Influenza B PCR NEGATIVE (Negative); Resp Syncy Virus RNA Qual PCR NEGATIVE (Negative); SARS COV2 PCR INHOUSE NEGATIVE (Negative)
[2023-12-18] MEDS: QUEtiapine Fumarate 50 MG TABLET 150 MG PO (22:02)
[2023-12-18] MEDS: Acetaminophen 325 MG TABLET 650 MG PO (22:02)
[2023-12-18] MEDS: Melatonin 3 MG TABLET PO (22:03)
[2023-12-19] MEDS: Levothyroxine Sodium 112 MCG TABLET PO (06:25)
[2023-12-19 07:00] VITALS: BMI 35.8
[2023-12-19 08:00] VITALS: BP 143/63; PULSE 75; RESP 16; TEMP 36.1; O2SAT 97
--- NOTE | 2023-12-19 08:02 | P.PNPSI_ITS ---
Subjective Subjective Date of Service: 12/19/23 Reason For Visit: Bipolar Subjective Notes: Conditional Voluntary Interim History: Reviewed with Dr. Cohen. Pt reports feeling good and ready to go home ; pt stated, I'm not depressed anymore . Pt denies SI/HI/VH/AH. Medication Compliance: Yes Side effects from medications: No Attending Groups: Yes Review of Systems Constitutional: Reports as per HPI Eyes: Reports as per HPI Reports as per HPI Cardiovascular: Reports as per HPI Respiratory: Reports as per HPI Gastrointestinal: Reports as per HPI Musculoskeletal: Reports as per HPI Skin/Breast: Reports as per HPI Reports as per HPI Psychiatric: Reports as per HPI Endocrine: Reports as per HPI Hematologic/Lymphatic: Reports as per HPI Allergic/Immunologic: Reports as per HPI Mental Status Exam Mental Status Exam Narrative: Pt is alert and oriented; behavior is cooperative, friendly and calm; dressed in casual attire; mood is described as good ; eye contact appropriate; Speech is normal rate, volume and prosody and not pressured; thought process is organized and goal directed; Thought content is on discharge; denies SI/HI/VH/AH. Diagnostics Vital Signs (24Hr): Vital Signs - 24 hr 12/18/23 08:33 12/18/23 20:00 Temperature 98.6 F 101.8 F H Pulse Rate 74 84 Respiratory Rate 20 16 Blood Pressure 128/71 159/84 H Pulse Oximetry 97 97 Oxygen Delivery Method Room Air Room Air BMI result Body Mass Index 36.5 Labs 12/11/23 20:35 12/18/23 08:28 Labs: Laboratory Results - last 48 hr 12/18/23 12/18/23 08:28 20:32 Sodium 137 Potassium 4.4 Chloride 103 Carbon Dioxide 26 Anion Gap 12 BUN 9 Creatinine 0.68 Estim Creat Clear Calc 84.5 Estimated GFR > 60 Leshara 0.69 Influenza Type A (PCR) NEGATIVE Influenza Type B (PCR) NEGATIVE RSV RNA Qual (PCR) NEGATIVE SARS-CoV-2 RNA (RT-PCR) NEGATIVE Medications Medications Current Medications Acetaminophen (Acetaminophen 325 Mg Tablet) 650 mg PO Q6H PRN PRN Reason: Headache/Pain Mild Scale (1-3) Last Admin: 12/18/23 22:02 Dose: 650 mg Al Hydroxide/Mg Hydroxide (Magnesium Hydrox/Alum Hydrox 30 Ml Oral.Susp) 30 ml PO Q6H PRN PRN Reason: Heartburn/Nausea Amlodipine Besylate (Amlodipine Besylate 5 Mg Tablet) 5 mg PO DAILY [facility]; Protocol Last Admin: 12/18/23 08:29 Dose: 5 mg Atorvastatin Calcium (Atorvastatin Calcium 10 Mg Tablet) 10 mg PO DAILY [facility] Last Admin: 12/18/23 08:29 Dose: 10 mg Carvedilol (Carvedilol 3.125 Mg Tablet) 3.125 mg PO BID [facility]; Protocol Last Admin: 12/18/23 22:03 Dose: 3.125 mg Docusate Sodium (Docusate Sodium 100 Mg Capsule) 100 mg PO DAILY [facility] Last Admin: 12/18/23 08:29 Dose: 100 mg Levothyroxine Sodium (Levothyroxine Sodium 112 Mcg Tablet) 112 mcg PO DAILY@0600 [facility] Last Admin: 12/19/23 06:25 Dose: 112 mcg Leshara Carbonate (Leshara Carbonate Er 450 Mg Tablet.Er) 450 mg PO BID [facility] Last Admin: 12/18/23 22:03 Dose: 450 mg Magnesium Hydroxide (Milk Of Magnesia 30 Ml Oral.Susp) 30 ml PO DAILY PRN PRN Reason: Constipation Melatonin (Melatonin 3 Mg Tablet) 3 mg PO BEDTIME [facility] Last Admin: 12/18/23 22:03 Dose: 3 mg Metformin HCl (Metformin Hcl 500 Mg Tablet) 500 mg PO BIDWM [facility] Last Admin: 12/18/23 16:59 Dose: 500 mg Pregabalin (Pregabalin 100 Mg Capsule) 100 mg PO BID [facility] Last Admin: 12/18/23 22:03 Dose: 100 mg Quetiapine Fumarate (Quetiapine Fumarate 50 Mg Tablet) 150 mg PO BEDTIME [facility] Last Admin: 12/18/23 22:02 Dose: 150 mg Allergies Allergies Allergy/AdvReac Type Severity Reaction Status Date / Time amoxicillin [AMOXICILLIN] Allergy Intermediate RASH Verified 08/29/22 14:43 azithromycin [AZITHROMYCIN] Allergy Intermediate RASH Verified 08/29/22 14:43 Clindamycin HCl Allergy Intermediate itch Verified 08/29/22 14:43 clonazepam [CLONAZEPAM] Allergy Intermediate RASH Verified 08/29/22 14:43 doxycycline [DOXYCYCLINE] Allergy Intermediate RASH Verified 08/29/22 14:43 ergocalciferol (vitamin D2) Allergy Intermediate RASH Verified 08/29/22 14:43 [From VITAMIN D2] guaifenesin [GUAIFENESIN] Allergy Intermediate RASH Verified 08/29/22 14:43 hydroxyzine [HYDROXYZINE] Allergy Intermediate RASH Verified 08/29/22 14:43 levofloxacin [LEVOFLOXACIN] Allergy Intermediate RASH Verified 08/29/22 14:43 metronidazole [From FLAGYL] Allergy Intermediate RASH Verified 08/29/22 14:43 omeprazole [OMEPRAZOLE] Allergy Intermediate RASH Verified 08/29/22 14:43 orlistat [From ALICIA] Allergy Intermediate RASH Verified 08/29/22 14:43 quetiapine [From SEROQUEL] Allergy Intermediate RASH Verified 08/29/22 14:43 ranitidine [RANITIDINE] Allergy Intermediate LIP Verified 08/29/22 14:43 NUMBNESS sulfamethoxazole Allergy Intermediate RASH Verified 08/29/22 14:43 [From BACTRIM] sumatriptan Allergy Intermediate rash Verified 08/29/22 14:43 trimethoprim [From BACTRIM] Allergy Intermediate RASH Verified 08/29/22 14:43 venlafaxine [From EFFEXOR] Allergy Intermediate RSH Verified 08/29/22 14:43 aripiprazole [From ABILIFY] 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 stabilize inpatient. T/C adding neuroleptic as needed. 12/05: refused meds last night, took them this morning. remains with paranoid delusions. continue to establish rapport. pt signed CV today, aware of need for 5 days of lithium and then check labs and clinical response. pt reports she is supposed to be taking lithium 300/450 rather than 450 BID, dosing changed accordingly. otherwise continue current mgmt. 12/06: no changes 12/07: no changes 12/08: presenting with inadequately addressed coty. check lithium/labs 12/10 maribell. continue current mgmt for now. 12/09: coty abating day by day. continue current mgmt, labs 12/10 maribell. continue current mgmt. 12/10: mental status appears quite clear. check labs tonight. may discharge tomorrow if labs good and continues to look well clinically. DC trazodone, do not give ambien, taper ativan, add seroquel 50 QHS. 12/11: lithium level 0.44. increase lithium dosing to 450 BID. also increase HS seroquel to 100 mg. otherwise continue current mgmt. 12/12: recheck lithium after 5 days. DC ativan PRN today, do not Rx ativan or ambien. appears to have become somewhat confused yesterday, concern for UTI. UA NEG today. continue current mgmt. 12/13: Increase Seroquel to 150 mg at bedtime 12/14: no change. Leshara level 12/17 12/15 continue tx. 12/16: Pt reports feeling good today; pt stated, I want to make sure my lithium level is good before I go. I'm not depressed. I'm just anxious because I haven't paid my rent and I cry because I want to go home . Pt denies SI/HI/VH/AH. Labs to be drawn tomorrow morning. 12/17:Pt reports feeling good today; pt stated, I'm good. I'm just bored here. I want to go back to my apartment . Pt denies SI/HI/VH/AH. Leshara level 0.69 today. Planning for discharge for Saturday. 12/18: Pt reports feeling good and ready to go home ; pt stated, I'm not depressed anymore . Pt denies SI/HI/VH/AH. continue current tx plan. Patient educated on: diagnosis, medication risk/benefits and therapeutic strategies Informed Consent: understands Reason for continued inpatient stay Substantial Risk for: stable for discharge Time Spent With Patient Time: Total time managing care of this patient today _20___ minutes.
[2023-12-19 08:48] VITALS: BP 143/63; PULSE 75
[2023-12-19] MEDS: carvediloL 3.125 MG TABLET PO ×2 (08:48→20:40)
[2023-12-19] MEDS: metFORMIN HCl 500 MG TABLET PO ×2 (08:48→18:23)
[2023-12-19] MEDS: Lithium Carbonate ER 450 MG TABLET.ER PO ×2 (08:48→20:42)
[2023-12-19] MEDS: Pregabalin 100 MG CAPSULE PO ×2 (08:49→20:40)
[2023-12-19] MEDS: Atorvastatin Calcium 10 MG TABLET PO (08:49)
[2023-12-19 08:50] VITALS: BP 143/63
[2023-12-19] MEDS: amLODIPine Besylate 5 MG TABLET PO (08:50)
[2023-12-19] MEDS: Docusate Sodium 100 MG CAPSULE PO (08:50)
[2023-12-19 20:00] VITALS: BP 129/71; PULSE 93; RESP 16; TEMP 38.2; O2SAT 97
[2023-12-19] MEDS: Acetaminophen 325 MG TABLET 650 MG PO (20:39)
[2023-12-19 20:40] VITALS: BP 129/71; PULSE 93
[2023-12-19] MEDS: QUEtiapine Fumarate 50 MG TABLET 150 MG PO (20:40)
[2023-12-19] MEDS: Melatonin 3 MG TABLET PO (20:40)
[2023-12-19 21:40] VITALS: TEMP 38.7
[2023-12-19 22:05] LABS: MANUAL DIFF FLAG NO
[2023-12-19 22:07] LABS: Basophils Percent Auto 0.2 % (0-2); Eosinophils Absolute Auto 0.1 X10*3/uL (0.0-0.4); Eosinophils Percent Auto 0.7 % (0-4); Hematocrit 34.6 % (37.0-47.0); Hemoglobin 11.2 g/dl (12.0-16.0); Imm Gran Abs Auto 0.05 X10*3/uL (0.00-0.03); Imm Gran Pct Auto 0.3 % (0.0-0.4); Lymphocytes Absolute Auto 2.7 X10*3/uL (1.2-4.9); Lymphocytes Percent Auto 16.1 % (20-40); Mean Corpuscular HGB Conc 32.4 g/dl (31.0-35.0); Mean Corpuscular Hemoglobin 27.1 pg (27.0-33.0); Mean Corpuscular Volume 83.8 fL (80.0-98.0); Mean Platelet Volume 9.2 fL (9.4-12.3); Monocytes Absolute Auto 1.1 X10*3/uL (0.1-1.2); Monocytes Percent Auto 6.6 % (2-11); Neutrophils Absolute Auto 12.7 x10*3/uL (2.0-8.3); Neutrophils Percent Auto 76.1 % (45-73); Platelet Count 384 X10*3/uL (160-400); Red Blood Count 4.13 X10*6/uL (4.20-5.50); Red Cell Distribution Width 16.2 % (11.0-16.0); White Blood Count 16.7 X10*3/uL (4.8-10.8)
[2023-12-20 03:30] VITALS: TEMP 36.6
[2023-12-20] MEDS: Levothyroxine Sodium 112 MCG TABLET PO (06:27)
[2023-12-20 08:15] VITALS: BP 111/66; PULSE 77; RESP 14; TEMP 36.7; O2SAT 98
[2023-12-20 08:37] LABS: Alanine Aminotransferase 17 U/L (0-31); Albumin Level 3.9 g/dL (3.5-5.0); Alkaline Phosphatase 93 U/L (39-117); Anion Gap 13 (12-20); Aspartate Amino Transferase 11 U/L (5-31); Bilirubin Total 0.3 mg/dL (0.0-1.0); Blood Urea Nitrogen 7 mg/dL (9-16); Calcium 9.9 mg/dL (8.4-10.2); Carbon Dioxide 28 mmol/L (22-29); Chloride 104 mmol/L (96-108); Creatinine Clr Calc Pharmacy 82.5; Estimated Glomerular Filt Rate > 60; Glucose Fasting 164 mg/dL (60-99); Potassium 3.9 mmol/L (3.3-5.1); Sodium 141 mmol/L (135-145); Total Protein 7.7 g/dL (6.5-8.0)
[2023-12-20 08:49] VITALS: BP 111/66; PULSE 77
[2023-12-20] MEDS: carvediloL 3.125 MG TABLET PO (08:49)
[2023-12-20] MEDS: amLODIPine Besylate 5 MG TABLET PO (08:49)
[2023-12-20] MEDS: Lithium Carbonate ER 450 MG TABLET.ER PO (08:49)
[2023-12-20] MEDS: metFORMIN HCl 500 MG TABLET PO (08:49)
[2023-12-20] MEDS: Pregabalin 100 MG CAPSULE PO (08:50)
[2023-12-20] MEDS: Atorvastatin Calcium 10 MG TABLET PO (08:50)
[2023-12-20] MEDS: Docusate Sodium 100 MG CAPSULE PO (08:50)
[2023-12-20 12:17] LABS: MANUAL DIFF FLAG NO
[2023-12-20 12:24] LABS: Basophils Percent Auto 0.2 % (0-2); Eosinophils Absolute Auto 0.1 X10*3/uL (0.0-0.4); Eosinophils Percent Auto 0.9 % (0-4); Hematocrit 36.3 % (37.0-47.0); Hemoglobin 11.3 g/dl (12.0-16.0); Imm Gran Abs Auto 0.06 X10*3/uL (0.00-0.03); Imm Gran Pct Auto 0.4 % (0.0-0.4); Lymphocytes Absolute Auto 1.7 X10*3/uL (1.2-4.9); Lymphocytes Percent Auto 11.2 % (20-40); Mean Corpuscular HGB Conc 31.1 g/dl (31.0-35.0); Mean Corpuscular Hemoglobin 26.8 pg (27.0-33.0); Mean Corpuscular Volume 86.2 fL (80.0-98.0); Mean Platelet Volume 9.3 fL (9.4-12.3); Monocytes Absolute Auto 0.9 X10*3/uL (0.1-1.2); Monocytes Percent Auto 5.8 % (2-11); Neutrophils Absolute Auto 12.3 x10*3/uL (2.0-8.3); Neutrophils Percent Auto 81.5 % (45-73); Platelet Count 419 X10*3/uL (160-400); Red Blood Count 4.21 X10*6/uL (4.20-5.50); Red Cell Distribution Width 16.3 % (11.0-16.0)
[2023-12-20 12:50] LABS: Influenza A PCR NEGATIVE (Negative); Influenza B PCR NEGATIVE (Negative); Resp Syncy Virus RNA Qual PCR NEGATIVE (Negative); SARS COV2 PCR INHOUSE NEGATIVE (Negative)
--- NOTE | 2023-12-20 13:16 | PM.EVENT ---
Event Note Date of Service: 12/20/23 Event Note: Patient seen for evaluation of nasal congestion and red eyes. Patient states symptoms began yesterday when she noticed that her eyes were red and crusty when she woke up. Denies pruritus or ocular pain. No change in vision. Also complains of nasal congestion. Denies history of allergies. Denies any other symptoms: No cough, SOB, CORTES, or sore throat. Denies sinus pressure. No chest pain/pressure, palpitations. Denies nausea, vomiting, or abdominal pain. Denies malaise, fatigue, myalgias. Patient has had low-grade fever up to 101.8 on 12/18/2023. Labs yesterday revealed leukocytosis of 16.7 and ANC of 12.7, up from 14.6 and 9.6 on 12/11/2023. Repeat labs today showed leukocytosis down trending to 15.5 and ANC 12.3. Patient tested negative for RSV, flu, COVID. Patient has remained afebrile at 98.1 today. Last dose of Tylenol was last night at 20:39. Physical exam reveals bilateral conjunctival injection without significant discharge. EOM intact. Nasopharynx clear without erythema or exudate. Facial sinuses nontender to palpation. Lungs clear to auscultation. Abdomen nontender, nondistended. Patient's symptoms likely secondary to upper respiratory viral illness. Patient can be treated symptomatically at home with [id number] medications: Decongestants as necessary (DayQuil/NyQuil, Afrin or Sudafed, etc.); Tylenol for fever or pain; cold compresses for puffy/itchy eyes or for discharge. No indication at this time for antibiotic ointment for bacterial conjunctivitis or for systemic/respiratory/sinus bacterial infection. If patient's symptoms persist or worsen after discharge, patient should present to urgent care for further evaluation. Time Spent With Patient Time: Total time managing care of this patient today ____ minutes.
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
== END 2023-12-20 14:50 | disposition home or self-care (01) | DRG 885 ==
PROVIDERS: Psychiatry & Neurology Psychiatry; Registered Nurse; Student in an Organized Health Care Education/Training Program; Admitting Provider Psychiatry & Neurology Psychiatry; Visit Provider Psychiatry & Neurology Psychiatry
DX: F31.9 Bipolar disorder, unspecified (principal); E03.9 Hypothyroidism, unspecified; I10 Essential (primary) hypertension; J06.9 Acute upper respiratory infection, unspecified; E11.9 Type 2 diabetes mellitus without complications; E78.5 Hyperlipidemia, unspecified; Z20.822 Contact with and (suspected) exposure to COVID-19; Z79.84 Long term (current) use of oral hypoglycemic drugs; Z79.890 Hormone replacement therapy; Z79.899 Other long term (current) drug therapy
CPT/HCPCS: 0241U; 36415; 71045; 80048; 80051; 80053; 80061; 80178; 81001; 82565; 82607; 82746; 82947; 83036; 84439; 84443; 84520; 85025

== ENCOUNTER → 2023-12-04 17:29 | Outpatient (BNV) | payer OTHER, SELFPAY | PROVIDERS: Admitting Provider Psychiatry & Neurology Psychiatry; Visit Provider Student in an Organized Health Care Education/Training Program | DX: Z00.8 Encounter for other general examination (principal) | CPT/HCPCS: 99499 ==

== ENCOUNTER → 2023-12-04 17:29 | Outpatient (BNV) | payer OTHER, SELFPAY | PROVIDERS: Admitting Provider Psychiatry & Neurology Psychiatry; Visit Provider Psychiatry & Neurology Psychiatry | DX: F31.13 Bipolar disorder, current episode manic without psychotic features, severe (principal) | CPT/HCPCS: 90792; 99231; 99232; 99239 ==

== ENCOUNTER 2024-07-31 11:53 | Emergency (ER) | payer OTHER, SELFPAY ==
[2024-07-31 12:08] VITALS: BP 126/74; BP 176/91; PULSE 102; PULSE 104; RESP 16; TEMP 36.2; O2SAT 96; O2SAT 97; BMI 22.3
--- NOTE | 2024-07-31 12:26 | ED.GENADULT ---
HPI - General Adult General Chief complaint: Altered Mental Status Stated complaint: FAILURE TO THRIVE Time Seen by Provider: 07/31/24 11:57 Source: EMS Mode of arrival: EMS Limitations: other History of Present Illness ED Provider: Dr. Clarice Corley HPI narrative: patient comes to the emergency room via ambulance from [facility]. According to the staff, patient has been semi catatonic and has not had any p.o. intake for 3 days. Patient is awake and alert, not talking, follows some commands. Staff was concerned that the patient may be becoming dehydrated due to lack of p.o. intake. Related Data Home Medications ?Medication ?Instructions ?Recorded ?Confirmed atorvastatin 10 mg tablet 10 mg PO DAILY 08/29/22 12/15/23 carvedilol 3.125 mg tablet 3.125 mg PO BID 08/29/22 12/15/23 metformin 500 mg tablet,extended 500 mg PO BID 08/29/22 12/05/23 release 24 hr Previous Rx's ?Medication ?Instructions ?Recorded levothyroxine 112 mcg tablet 112 mcg PO QAM #90 tabs 03/12/22 polyethylene glycol 3350 17 17 g PO DAILY PRN constipation 30 12/13/22 gram/dose oral powder days #510 grams amlodipine 5 mg tablet 5 mg PO DAILY 30 days #30 tabs 12/19/23 docusate sodium 100 mg capsule 100 mg PO DAILY 30 days #30 caps 12/19/23 lithium carbonate 450 mg 450 mg PO BID 30 days #60 tabs 12/19/23 tablet,extended release melatonin 3 mg tablet 3 mg PO BEDTIME 30 days #30 tabs 12/19/23 pregabalin 100 mg capsule (Lyrica) 100 mg PO BID 30 days #60 caps 12/19/23 quetiapine 150 mg tablet 150 mg PO BEDTIME 30 days #30 tabs 12/19/23 Allergies Allergy/AdvReac Type Severity Reaction Status Date / Time amoxicillin [AMOXICILLIN] Allergy Intermediate RASH Verified 07/31/24 12:13 azithromycin [AZITHROMYCIN] Allergy Intermediate RASH Verified 07/31/24 12:13 Clindamycin HCl Allergy Intermediate itch Verified 07/31/24 12:13 clonazepam [CLONAZEPAM] Allergy Intermediate RASH Verified 07/31/24 12:13 doxycycline [DOXYCYCLINE] Allergy Intermediate RASH Verified 07/31/24 12:13 ergocalciferol (vitamin D2) Allergy Intermediate RASH Verified 07/31/24 12:13 [From VITAMIN D2] guaifenesin [GUAIFENESIN] Allergy Intermediate RASH Verified 07/31/24 12:13 hydroxyzine [HYDROXYZINE] Allergy Intermediate RASH Verified 07/31/24 12:13 levofloxacin [LEVOFLOXACIN] Allergy Intermediate RASH Verified 07/31/24 12:13 metronidazole [From FLAGYL] Allergy Intermediate RASH Verified 07/31/24 12:13 omeprazole [OMEPRAZOLE] Allergy Intermediate RASH Verified 07/31/24 12:13 orlistat [From ALICIA] Allergy Intermediate RASH Verified 07/31/24 12:13 quetiapine [From SEROQUEL] Allergy Intermediate RASH Verified 07/31/24 12:13 ranitidine [RANITIDINE] Allergy Intermediate LIP Verified 07/31/24 12:13 NUMBNESS sulfamethoxazole Allergy Intermediate RASH Verified 07/31/24 12:13 [From BACTRIM] sumatriptan Allergy Intermediate rash Verified 07/31/24 12:13 trimethoprim [From BACTRIM] Allergy Intermediate RASH Verified 07/31/24 12:13 venlafaxine [From EFFEXOR] Allergy Intermediate RSH Verified 07/31/24 12:13 aripiprazole [From ABILIFY] AdvReac 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 benzonatate AdvReac Severe Chest Pain Verified 07/31/24 12:13 haloperidol [From HALDOL] AdvReac 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 Mother No problems noted. Social History Social History Household Members: Unknown / Unable to assess Housing: Apartment Alcohol intake: never Patient Tobacco Use Status: Never used Tobacco e-Cigarette/Vaping Use: Never Used Second Hand Smoke Exposure: No Advance Directives: No Advance Directives Information Provided: No service: No Current occupational status: unemployed Sexual orientation: Don't Know Gender identity: Female Cognitive needs: No Hearing needs: No Vision needs: No Physical Exam ED Vital Signs: Vital Signs - 24 hr 07/31/24 12:08 07/31/24 16:40 Temperature 97.2 F 98.3 F Pulse Rate 102 H 116 H Respiratory Rate 16 16 Blood Pressure 176/91 H 153/84 H Pulse Oximetry 96 97 Oxygen Delivery Method Room Air Room Air BMI result Body Mass Index 22.3 Const Other: Appearance: Alert. No acute distress, not answering any questions, following some commands Eyes: Pupils equal, round and reactive to light. ENT: Pharynx normal. by oral mucosa Neck: Normal inspection. Neck supple. No lymph nodes noted. No crepitus CVS: Normal heart rate and rhythm. Pulses normal. Normal S1 and S2 Respiratory: No respiratory distress. Breath sounds normal. No Wheezing. No rales Abdomen: Soft and nontender. No rigidity. No distention. Skin: Skin warm and dry. Normal skin color. Normal skin turgor. Extremities: No lower extremity edema. No Lacerations. No Rash Neuro: unable to assess, patient not following commands Psych: calm Course Course Course Narrative: - all of patient's labs pending patient receiving IV fluids Medications Administered Discontinued Medications Generic Name Dose Route Start Last Admin Trade Name Joseph PRN Reason Stop Dose Admin Lactated Ringer's 1,000 mls @ 999 mls/hr 07/31/24 12:15 07/31/24 12:49 Lr IV 07/31/24 13:15 999 mls/hr .Q1H1M [facility] Administration Medical Decision Making Medical Decision Making [facility] Narrative: my interpretation of labs: Patient's hematology and chemistry at baseline. BUN and creatinine within normal limits. Patient was given IV fluids patient returning to the psychiatric facility Differential Diagnosis Differential Diagnoses: The differential diagnosis associated with the presentation includes ( fail to thrive, refusal to eat, catatonia) Admission/Observation Consideration of admission/observation: Escalation of care including admission/observation considered ( considering patient's report, observation/ admission was considered) Lab Data MDM Lab Attestation statement: I reviewed the patient's lab results. 07/31/24 12:47 07/31/24 16:22 Labs: Lab Results 07/31/24 07/31/24 Range/Units 12:47 16:22 WBC 14.3 H (4.8-10.8) X10*3/uL RBC 4.32 (4.20-5.50) X10*6/uL Hgb 12.1 (12.0-16.0) g/dl Hct 37.5 (37.0-47.0) % MCV 86.8 (80.0-98.0) fL MCH 28.0 (27.0-33.0) pg MCHC 32.3 (31.0-35.0) g/dl RDW 16.2 H (11.0-16.0) % Plt Count 484 H (160-400) X10*3/uL MPV 9.0 L (9.4-12.3) fL Immature Gran % (Auto) 0.4 (0.0-0.4) % Neut % (Auto) 77.3 H (45-73) % Lymph % (Auto) 16.5 L (20-40) % Howard % (Auto) 5.2 (2-11) % Eos % (Auto) 0.3 (0-4) % Baso % (Auto) 0.3 (0-2) % Lymph # (Auto) 2.4 (1.2-4.9) X10*3/uL Howard # (Auto) 0.7 (0.1-1.2) X10*3/uL Eos # (Auto) 0.1 (0.0-0.4) X10*3/uL Baso # (Auto) 0.1 (0.0-0.2) X10*3/uL Abs Immat Gran (auto) 0.06 H (0.00-0.03) X10*3/uL Absolute Neuts (auto) 11.1 H (2.0-8.3) x10*3/uL Absolute Nucleated RBC 0.000 (0.0-0.012) X10*3/uL Nucleated RBC % (auto) 0.0 (0.0-0.2) /100WBC Sodium 144 (135-145) mmol/L Potassium 4.2 (3.3-5.1) mmol/L Chloride 107 (96-108) mmol/L Carbon Dioxide 23 (22-29) mmol/L Anion Gap 18 (12-20) BUN 10 (9-16) mg/dL Creatinine 0.75 (0.5-1.4) mg/dL Estim Creat Clear Calc 71.4 Estimated GFR > 60 Random Glucose 110 (60-115) mg/dL Calcium 10.0 (8.4-10.2) mg/dL Total Bilirubin 0.5 (0.0-1.0) mg/dL Direct Bilirubin 0.2 (0.0-0.5) mg/dL AST 18 (5-31) U/L ALT 7 (0-31) U/L Alkaline Phosphatase 92 (39-117) U/L Total Protein 7.6 (6.5-8.0) g/dL Albumin 4.0 (3.5-5.0) g/dL Lipase 15 (8-78) U/L TSH 1.27 (0.32-4.0) uIU/mL Critical Care Time Critical Care Time Critical Care Time: Yes Total Critical Care Time: 35 Attestation: I have personally provided critical care time. Time includes review of lab data, radiology results, discussion with consultants, and monitoring for potential decompensation. Intervention performed as documented. Discharge Plan Discharge Clinical Impression: Adult failure to thrive Patient Disposition: Xfer Other Transfer Details: [facility] psych Instructions: Failure to Thrive in Older Adults (ED) Additional Instructions: Please follow-up with your primary care physician tomorrow. If you have any worsening or new symptoms, please return to the emergency room or call 911 Prescriptions: No Action levothyroxine 112 mcg tablet 112 mcg PO QAM Qty: 90 0RF polyethylene glycol 3350 17 gram/dose powder 17 g PO DAILY PRN (Reason: constipation) 30 Days Qty: 510 0RF amlodipine 5 mg Tablet 5 mg PO DAILY 30 Days Qty: 30 0RF Protocol: Hold for SBP< HOLD for SBP < : 90 lithium carbonate 450 mg Tablet Extended Release 450 mg PO BID 30 Days Qty: 60 0RF melatonin 3 mg Tablet 3 mg PO BEDTIME 30 Days Qty: 30 0RF docusate sodium 100 mg Capsule 100 mg PO DAILY 30 Days Qty: 30 0RF pregabalin [Lyrica] 100 mg Capsule 100 mg PO BID 30 Days Qty: 60 0RF quetiapine 150 mg tablet 150 mg PO BEDTIME 30 Days Qty: 30 0RF atorvastatin 10 mg tablet 10 mg PO DAILY metformin 500 mg tablet extended release 24 hr 500 mg PO BID carvedilol 3.125 mg tablet 3.125 mg PO BID Print Language: Greenlandic
[2024-07-31] MEDS: Lactated Ringers 1,000 ML 999 ML IV (12:49)
[2024-07-31 12:50] LABS: MANUAL DIFF FLAG NO
[2024-07-31 12:51] LABS: Basophils Absolute Auto 0.1 X10*3/uL (0.0-0.2); Basophils Percent Auto 0.3 % (0-2); Eosinophils Absolute Auto 0.1 X10*3/uL (0.0-0.4); Eosinophils Percent Auto 0.3 % (0-4); Hematocrit 37.5 % (37.0-47.0); Hemoglobin 12.1 g/dl (12.0-16.0); Imm Gran Abs Auto 0.06 X10*3/uL (0.00-0.03); Imm Gran Pct Auto 0.4 % (0.0-0.4); Lymphocytes Absolute Auto 2.4 X10*3/uL (1.2-4.9); Lymphocytes Percent Auto 16.5 % (20-40); Mean Corpuscular HGB Conc 32.3 g/dl (31.0-35.0); Mean Corpuscular Volume 86.8 fL (80.0-98.0); Monocytes Absolute Auto 0.7 X10*3/uL (0.1-1.2); Monocytes Percent Auto 5.2 % (2-11); Neutrophils Absolute Auto 11.1 x10*3/uL (2.0-8.3); Neutrophils Percent Auto 77.3 % (45-73); Platelet Count 484 X10*3/uL (160-400); Red Blood Count 4.32 X10*6/uL (4.20-5.50); Red Cell Distribution Width 16.2 % (11.0-16.0); White Blood Count 14.3 X10*3/uL (4.8-10.8)
[2024-07-31 16:40] VITALS: BP 153/84; PULSE 116; RESP 16; TEMP 36.8; O2SAT 97
[2024-07-31 16:44] LABS: Alanine Aminotransferase 7 U/L (0-31); Alkaline Phosphatase 92 U/L (39-117); Anion Gap 18 (12-20); Aspartate Amino Transferase 18 U/L (5-31); Bilirubin Direct 0.2 mg/dL (0.0-0.5); Bilirubin Total 0.5 mg/dL (0.0-1.0); Blood Urea Nitrogen 10 mg/dL (9-16); Carbon Dioxide 23 mmol/L (22-29); Chloride 107 mmol/L (96-108); Creatinine Clr Calc Pharmacy 71.4; Estimated Glomerular Filt Rate > 60; Glucose Random 110 mg/dL (60-115); Lipase 15 U/L (8-78); Potassium 4.2 mmol/L (3.3-5.1); Sodium 144 mmol/L (135-145); Total Protein 7.6 g/dL (6.5-8.0)
[2024-07-31 17:04] LABS: TSH reflex Free T4 1.27 uIU/mL (0.32-4.0)
--- NOTE | 2024-07-31 17:39 | PC.NURSE ---
Pt has not said anything since arrival. Did nneed additional support to obtain labs and IV. SKin pwd. able to ambulate to BR w/assist. Did not urinate.
--- NOTE | 2024-07-31 17:48 | PC.NURSE ---
brief remains dry.
[2024-07-31] MEDS: 0.9 % Sodium Chloride 1,000 ML 999 ML IV (18:28)
--- NOTE | 2024-07-31 19:09 | PC.NURSE ---
attempting to reach RN At [place]. no one is answering. bedside report to EMS.
[2024-07-31 19:12] VITALS: BP 153/84; PULSE 116; RESP 16; TEMP 36.8; O2SAT 97
== END 2024-07-31 19:13 | disposition other institution (70) ==
PROVIDERS: Emergency Provider Emergency Medicine
DX: R62.7 Adult failure to thrive (principal); E86.0 Dehydration; Z79.899 Other long term (current) drug therapy
CPT/HCPCS: 36415; 80048; 80076; 83690; 84443; 85025; 99285; J7120

== ENCOUNTER 2024-07-31 20:50 | Emergency (ER) | payer OTHER, SELFPAY ==
--- NOTE | ~2024-07-31 | XR_ITS ---
EXAMINATION: XR CHEST CLINICAL INFORMATION: cough COMPARISON: December 20, 2023 TECHNIQUE: Frontal view of the chest was obtained. FINDINGS: The lung volumes are low and the patient is mildly rotated limiting evaluation. The cardiomediastinal silhouette is stable. There is no focal lung consolidation or evidence for significant pleural effusions. The bony structures and the soft tissues are unremarkable. XR/XR chest 1V IMPRESSION: Low lung volumes without acute cardiopulmonary process. Electronically signed by: Ike Lewis MD 08/01/2024 02:31 AM NISHA RAMIREZ
--- NOTE | ~2024-07-31 | CT_ITS ---
EXAMINATION: CT HEAD WITHOUT CONTRAST CLINICAL INFORMATION: Altered mental status. COMPARISON: None available. TECHNIQUE: Contiguous axial imaging was performed from the skull base to vertex without intravenous administration of contrast. This CT examination was performed using dose optimization techniques as appropriate, variously including the following: *Automated exposure control *Adjustment of mA and/or kV according to patient size (this includes techniques or standardized protocols for targeted exams where dose is matched to indication/reason for exam; i.e. extremities or head) *Use of iterative reconstruction technique DLP: 631 mGy-cm FINDINGS: There is mild cerebral volume loss with prominence of the lateral and the third ventricles. The cortical sulci are widened appropriately. The fourth ventricle and basal cisterns are normally outlined. There is no acute territorial defects, hemorrhage or midline shift. The extra-axial spaces are unremarkable. 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 The scalp soft tissues are unremarkable. Maxillofacial sinuses and mastoids: Clear as visualized. CT/CT head/brain wo IV con IMPRESSION: 1. No acute intracranial pathology. 2. Mild cerebral volume loss. Electronically signed by: Ike Lewis MD 08/01/2024 02:39 AM EST
[2024-07-31 20:53] VITALS: BMI 22.3
[2024-07-31 21:09] VITALS: BP 161/93; PULSE 111; RESP 18; TEMP 36.3; O2SAT 97
--- NOTE | 2024-07-31 21:11 | PC.NURSE ---
RN called and spoke to rhiannon young nurse from the patient's unit and provided a report. nursing staff encouraged to ensure to encourage toileting throughout the night d/t IVF . Direct number to patient's unit is [phone] supervisor assembly can be reached at [phone]
--- NOTE | 2024-07-31 21:16 | PC.NURSE ---
Pt sent back from [place], tab builder spoke with Rn from facility. Pt bladder scanned d/t no voiding prior to leaving. Pt still has not voided, brought to BR 3 times by tech with no success. Pt is confused and unable to go at this time. T/w spoke with requesting straight cath and UA. Verbal order okayed by . Will update oncoming Provider.
[2024-07-31 21:41] LABS: Appearance Urine Cloudy; Color Urine Yellow; Glucose Urine UA Negative (Negative); Leukocyte Esterase Urine Trace (Negative); Nitrite Urine Negative (Negative); Specific Gravity - Urine 1.015 (1.005-1.025); UMIC TRIGGER UACC YES; Urine Blood Trace (Negative); Urine Ketones 40 mg/dL (Negative); Urine Protein Negative (Neg-Trace)
[2024-07-31 21:55] LABS: Bacteria Urine 3+ (None Seen); Hyaline Casts Urine 0-2 /LPF (0-2); RBC Urine 0-2 /HPF (0-2); UACC Culture Trigger YES; WBC Urine 21-50 /HPF (0-5)
--- NOTE | 2024-07-31 22:20 | MHC.EDTECH ---
Assisted RN/IRASEMA Michael with straight cath,pt had an output of 750MLS of yellow W/sediment.
--- NOTE | 2024-07-31 23:20 | ED.GENADULT ---
HPI - General Adult General Chief complaint: General Medical Stated complaint: AMS Time Seen by Provider: 07/31/24 23:20 History of Present Illness ED Provider: Kd BOX narrative: The patient is a 58-year-old female with a history of chronic mental illness who has been an inpatient at the [facility]. According to staff at the facility the patient arrived from the emergency room at [facility]. Staff member I spoke to told me that patient has been fairly catatonic since arriving at the unit. The patient has been taking very little by mouth and they have trouble getting medications into her. She has been sent to the emergency room earlier today because they were concerned that the patient might be dehydrated because of lack of oral intake. The patient was seen in the emergency room earlier this afternoon. Laboratory evaluation showed a white count of 14,000 with 77% neutrophils. Electrolytes and renal function were unremarkable. TSH was normal. The patient received 2 L of IV fluids and was discharged from the emergency room to returned to the psychiatric facility. However when medics got to the psychiatric facility the facility indicated that they had not gotten report from the emergency room and would not accept the patient and so the patient was brought back here. After being evaluated here the patient was found to have a large bladder volume. The patient is nonverbal and is not offering any history. We obtained old records from the [facility] Emergency room visit. She was seen there on July 27 and discharged on July 28. Her vital signs there showed a heart rate of 115, temperature of 98.4 degrees orally, a blood pressure 158/97. Investigations at the emergency room showed a white count of 13.7. She was described as not responding to any questions and continually attempting to leave the room and being unredirectable. I believe that no imaging was done. She was judged to be having an exacerbation of her chronic mental illness. Apparently at one point at [facility] she became sufficiently agitated that the patient was given 10 mg of olanzapine and 2 mg of lorazepam. Related Data Home Medications ?Medication ?Instructions ?Recorded ?Confirmed atorvastatin 10 mg tablet 10 mg PO DAILY 08/29/22 12/15/23 carvedilol 3.125 mg tablet 3.125 mg PO BID 08/29/22 12/15/23 metformin 500 mg tablet,extended 500 mg PO BID 08/29/22 12/05/23 release 24 hr Previous Rx's ?Medication ?Instructions ?Recorded levothyroxine 112 mcg tablet 112 mcg PO QAM #90 tabs 03/12/22 polyethylene glycol 3350 17 17 g PO DAILY PRN constipation 30 12/13/22 gram/dose oral powder days #510 grams amlodipine 5 mg tablet 5 mg PO DAILY 30 days #30 tabs 12/19/23 docusate sodium 100 mg capsule 100 mg PO DAILY 30 days #30 caps 12/19/23 lithium carbonate 450 mg 450 mg PO BID 30 days #60 tabs 12/19/23 tablet,extended release melatonin 3 mg tablet 3 mg PO BEDTIME 30 days #30 tabs 12/19/23 pregabalin 100 mg capsule (Lyrica) 100 mg PO BID 30 days #60 caps 12/19/23 quetiapine 150 mg tablet 150 mg PO BEDTIME 30 days #30 tabs 12/19/23 cefuroxime axetil 250 mg tablet 250 mg PO BID 5 days #10 tabs 08/01/24 Allergies Allergy/AdvReac Type Severity Reaction Status Date / Time amoxicillin [AMOXICILLIN] Allergy Intermediate RASH Verified 07/31/24 20:55 azithromycin [AZITHROMYCIN] Allergy Intermediate RASH Verified 07/31/24 20:55 Clindamycin HCl Allergy Intermediate itch Verified 07/31/24 20:55 clonazepam [CLONAZEPAM] Allergy Intermediate RASH Verified 07/31/24 20:55 doxycycline [DOXYCYCLINE] Allergy Intermediate RASH Verified 07/31/24 20:55 ergocalciferol (vitamin D2) Allergy Intermediate RASH Verified 07/31/24 20:55 [From VITAMIN D2] guaifenesin [GUAIFENESIN] Allergy Intermediate RASH Verified 07/31/24 20:55 hydroxyzine [HYDROXYZINE] Allergy Intermediate RASH Verified 07/31/24 20:55 levofloxacin [LEVOFLOXACIN] Allergy Intermediate RASH Verified 07/31/24 20:55 metronidazole [From FLAGYL] Allergy Intermediate RASH Verified 07/31/24 20:55 omeprazole [OMEPRAZOLE] Allergy Intermediate RASH Verified 07/31/24 20:55 orlistat [From ALICIA] Allergy Intermediate RASH Verified 07/31/24 20:55 quetiapine [From SEROQUEL] Allergy Intermediate RASH Verified 07/31/24 20:55 ranitidine [RANITIDINE] Allergy Intermediate LIP Verified 07/31/24 20:55 NUMBNESS sulfamethoxazole Allergy Intermediate RASH Verified 07/31/24 20:55 [From BACTRIM] sumatriptan Allergy Intermediate rash Verified 07/31/24 20:55 trimethoprim [From BACTRIM] Allergy Intermediate RASH Verified 07/31/24 20:55 venlafaxine [From EFFEXOR] Allergy Intermediate RSH Verified 07/31/24 20:55 aripiprazole [From ABILIFY] AdvReac Severe neuroleptic Verified 07/31/24 20:55 malignant syndrome benzonatate AdvReac Severe Chest Pain Verified 07/31/24 20:55 haloperidol [From HALDOL] AdvReac 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 Mother No problems noted. Social History Social History Household Members: Unknown / Unable to assess Housing: Apartment Unable to assess alcohol history related to: Unable to respond Alcohol intake: never Patient Tobacco Use Status: Never used Tobacco Smoked in Last 30 Days: No e-Cigarette/Vaping Use: Never Used Second Hand Smoke Exposure: No Use of substances other than those prescribed or required for medical reasons: No Advance Directives: No Advance Directives Information Provided: No Patient : No service: No Current occupational status: unemployed Sexual orientation: Don't Know Gender identity: Female Cognitive needs: No Hearing needs: No Vision needs: No Physical Exam ED Vital Signs: Vital Signs - 24 hr 07/31/24 21:09 07/31/24 23:48 Temperature 97.3 F 99.2 F Pulse Rate 111 H 106 H Respiratory Rate 18 16 Blood Pressure 161/93 H 152/93 H Pulse Oximetry 97 97 Oxygen Delivery Method Room Air BMI result Body Mass Index 22.3 Const Other: The patient is a chronically ill appearing 58-year-old. She looks older than her age. She was lying quietly on the stretcher and did not respond to verbal stimuli. HENMT Other: Face was symmetrical. Mucous membranes moist. Eyes Other: The patient was initially reluctant to show me her eyes or allow me to open her eyes. I was able to open her eyes in her pupils are round equal, gaze is conjugate. Extraocular movements seemed to be intact. I thought there might be some slight chemosis to the conjunctiva but no injection. Neck Other: No nuchal rigidity Resp Effort & Inspection: normal respiratory effort Auscultation: clear to auscultation bilaterally Cardio Rate: tachycardic Rhythm: regular rhythm Heart sounds: S1 normal heart sound present and S2 normal heart sound present GI Other: The abdomen was soft and did not seem tender. Skin Other: Skin is pale and dry Neuro Other: The patient was initially lying on a stretcher unresponsive and holding her eyes closed. She resisted my efforts to open her eyes. Her face was symmetrical. She was nonverbal. She had symmetrical tone in her extremities and seemed to have a type of wax like character to her arms. When I lifted her arm up it stayed up. Toes go down bilaterally. She withdraws her feet with Babinski testing. She seems to have symmetrical tone and strength. After dose of IV lorazepam the patient seemed slightly brighter. Her eyes were open spontaneously. She followed simple commands to move her extremities. Extrem Other: No peripheral edema, no calf swelling or tenderness, no asymmetry Medications Administered Discontinued Medications Generic Name Dose Route Start Last Admin Trade Name Ammonq PRN Reason Stop Dose Admin Ceftriaxone Sodium 1 gm 08/01/24 01:45 08/01/24 02:21 Ceftriaxone Sodium 1 Gm Vial IVPUSH 08/01/24 01:46 1 gm ONCE ONE Administration Lorazepam 1 mg 07/31/24 23:50 08/01/24 00:25 Lorazepam 2 Mg/Ml Vial IVPUSH 07/31/24 23:51 1 mg ONCE ONE Administration Medical Decision Making Medical Decision Making MDM Narrative: The patient sent to the emergency room from [facility] where she was admitted 3 days ago from the emergency room at [facility]. She was felt to have an exacerbation of her chronic mental illness. She has been behaving in a manner consistent with catatonia. She had initially been evaluated by another emergency room physician. Patient has been given 2 L of IV crystalloid. The patient then returned after discharge because report had not been effected prior to the patient returning to the psychiatric facility. When the patient returned on the 2nd visit her vital signs were similar. She seems to show a chronic tachycardia. This seems consistent with a vital signs taken at [facility] 3 days ago. On the 2nd visit we obtained a catheterized urine specimen. She had had a fairly large volume of urine. The urinalysis is potentially consistent with a UTI. Her rectal temperature was 99.2. White blood count is elevated but she seems to have a history of chronic elevations of her white blood count. Her CRP is 3.78. This is consistent with previous CRPs. The patient was given 1 mg of IV lorazepam has a possible diagnostic maneuver since she seemed catatonic. I felt she was more alert and responsive after the IV lorazepam. Ultimately I felt that she did not have any medical reason for hospitalization. She may have a mild UTI. She was given a dose of IV ceftriaxone. A urine culture is pending. I think she can be returned to her psychiatric facility. I have sent a prescription for cefuroxime 250 mg b.i.d. x5 days. A CT of the brain showed no acute changes. Chest x-ray showed low lung volumes but no other acute findings. Lab Data 08/01/24 00:24 08/01/24 00:48 Labs: Lab Results 07/31/24 08/01/24 08/01/24 Range/Units 21:36 00:24 00:48 WBC 16.0 H (4.8-10.8) X10*3/uL RBC 4.01 L (4.20-5.50) X10*6/uL Hgb 11.4 L (12.0-16.0) g/dl Hct 34.2 L (37.0-47.0) % MCV 85.3 (80.0-98.0) fL MCH 28.4 (27.0-33.0) pg MCHC 33.3 (31.0-35.0) g/dl RDW 16.1 H (11.0-16.0) % Plt Count 471 H (160-400) X10*3/uL MPV 9.1 L (9.4-12.3) fL Immature Gran % (Auto) 0.4 (0.0-0.4) % Neut % (Auto) 73.4 H (45-73) % Lymph % (Auto) 19.0 L (20-40) % Dixon % (Auto) 6.4 (2-11) % Eos % (Auto) 0.5 (0-4) % Baso % (Auto) 0.3 (0-2) % Lymph # (Auto) 3.0 (1.2-4.9) X10*3/uL Dixon # (Auto) 1.0 (0.1-1.2) X10*3/uL Eos # (Auto) 0.1 (0.0-0.4) X10*3/uL Baso # (Auto) 0.1 (0.0-0.2) X10*3/uL Abs Immat Gran (auto) 0.07 H (0.00-0.03) X10*3/uL Absolute Neuts (auto) 11.7 H (2.0-8.3) x10*3/uL Absolute Nucleated RBC 0.000 (0.0-0.012) X10*3/uL Nucleated RBC % (auto) 0.0 (0.0-0.2) /100WBC Sodium 143 (135-145) mmol/L Potassium 3.8 (3.3-5.1) mmol/L Chloride 109 H (96-108) mmol/L Carbon Dioxide 21 L (22-29) mmol/L Anion Gap 17 (12-20) BUN 9 (9-16) mg/dL Creatinine 0.68 (0.5-1.4) mg/dL Estim Creat Clear Calc 78.8 Estimated GFR > 60 Random Glucose 125 H (60-115) mg/dL Calcium 9.6 (8.4-10.2) mg/dL Magnesium 2.2 (1.6-2.6) mg/dL Total Bilirubin 0.6 (0.0-1.0) mg/dL Direct Bilirubin 0.2 (0.0-0.5) mg/dL AST 14 (5-31) U/L ALT 7 (0-31) U/L Alkaline Phosphatase 84 (39-117) U/L C-Reactive Protein 3.78 H (< or = 0.50) mg/dL Total Protein 7.0 (6.5-8.0) g/dL Albumin 3.8 (3.5-5.0) g/dL Urine Color Yellow Urine Appearance Cloudy Urine pH 7.0 (5.0-9.0) Ur Specific Fisher 1.015 (1.005-1.025) Urine Protein Negative (Neg-Trace) mg/dL Urine Glucose (UA) Negative (Negative) mg/dL Urine Ketones 40 (Negative) mg/dL Urine Blood Trace H (Negative) Urine Nitrite Negative (Negative) Ur Leukocyte Esterase Trace H (Negative) Urine RBC 0-2 (0-2) /HPF Urine WBC 21-50 H (0-5) /HPF Ur Squamous Epith Cells 6-10 (0-2) /HPF Urine Bacteria 3+ (None Seen) Hyaline Casts 0-2 (0-2) /LPF Discharge Plan Discharge Clinical Impression: Catatonia, Abnormal urinalysis, Schizophrenia Patient Disposition: [facility] Transfer Details: Return to [facility] Additional Instructions: It is possible she might have a urinary tract infection. However I do not think she has a systemic UTI. She was given 1 gram of IV ceftriaxone. I have prescribed 5 days of cefuroxime [address] shows no acute findings. Other labs show a chronically elevated white blood count, otherwise unremarkable. Prescriptions: New cefuroxime axetil 250 mg tablet 250 mg PO BID 5 Days Qty: 10 0RF No Action levothyroxine 112 mcg tablet 112 mcg PO QAM Qty: 90 0RF polyethylene glycol 3350 17 gram/dose powder 17 g PO DAILY PRN (Reason: constipation) 30 Days Qty: 510 0RF amlodipine 5 mg Tablet 5 mg PO DAILY 30 Days Qty: 30 0RF Protocol: Hold for SBP< HOLD for SBP < : 90 lithium carbonate 450 mg Tablet Extended Release 450 mg PO BID 30 Days Qty: 60 0RF melatonin 3 mg Tablet 3 mg PO BEDTIME 30 Days Qty: 30 0RF docusate sodium 100 mg Capsule 100 mg PO DAILY 30 Days Qty: 30 0RF pregabalin [Lyrica] 100 mg Capsule 100 mg PO BID 30 Days Qty: 60 0RF quetiapine 150 mg tablet 150 mg PO BEDTIME 30 Days Qty: 30 0RF atorvastatin 10 mg tablet 10 mg PO DAILY metformin 500 mg tablet extended release 24 hr 500 mg PO BID carvedilol 3.125 mg tablet 3.125 mg PO BID Referrals: [facility] [Outside] Print Language: [place]
[2024-07-31 23:48] VITALS: BP 152/93; PULSE 106; RESP 16; TEMP 37.3; O2SAT 97
--- NOTE | 2024-07-31 23:58 | MHC.EDTECH ---
Patient was placed on the quality assurance monitor,vitals/rectal temp taken,RN and provider aware
[2024-08-01] MEDS: LORazepam 2 MG/ML VIAL 1 MG IVPUSH (00:25)
[2024-08-01 00:29] LABS: Basophils Absolute Auto 0.1 X10*3/uL (0.0-0.2); Basophils Percent Auto 0.3 % (0-2); Eosinophils Absolute Auto 0.1 X10*3/uL (0.0-0.4); Eosinophils Percent Auto 0.5 % (0-4); Hematocrit 34.2 % (37.0-47.0); Hemoglobin 11.4 g/dl (12.0-16.0); Imm Gran Abs Auto 0.07 X10*3/uL (0.00-0.03); Imm Gran Pct Auto 0.4 % (0.0-0.4); MANUAL DIFF FLAG NO; Mean Corpuscular HGB Conc 33.3 g/dl (31.0-35.0); Mean Corpuscular Hemoglobin 28.4 pg (27.0-33.0); Mean Corpuscular Volume 85.3 fL (80.0-98.0); Mean Platelet Volume 9.1 fL (9.4-12.3); Monocytes Percent Auto 6.4 % (2-11); Neutrophils Absolute Auto 11.7 x10*3/uL (2.0-8.3); Neutrophils Percent Auto 73.4 % (45-73); Platelet Count 471 X10*3/uL (160-400); Red Blood Count 4.01 X10*6/uL (4.20-5.50); Red Cell Distribution Width 16.1 % (11.0-16.0)
--- NOTE | 2024-08-01 00:31 | PC.NURSE ---
Labs Drawn #[id number] IV placed in L-hand. ativan administered per order.
[2024-08-01 01:22] LABS: Alanine Aminotransferase 7 U/L (0-31); Albumin Level 3.8 g/dL (3.5-5.0); Alkaline Phosphatase 84 U/L (39-117); Anion Gap 17 (12-20); Aspartate Amino Transferase 14 U/L (5-31); Bilirubin Direct 0.2 mg/dL (0.0-0.5); Bilirubin Total 0.6 mg/dL (0.0-1.0); Blood Urea Nitrogen 9 mg/dL (9-16); C Reactive Protein 3.78 mg/dL (< or = 0.50); Calcium 9.6 mg/dL (8.4-10.2); Carbon Dioxide 21 mmol/L (22-29); Chloride 109 mmol/L (96-108); Creatinine Clr Calc Pharmacy 78.8; Estimated Glomerular Filt Rate > 60; Glucose Random 125 mg/dL (60-115); Magnesium 2.2 mg/dL (1.6-2.6); Potassium 3.8 mmol/L (3.3-5.1); Sodium 143 mmol/L (135-145)
[2024-08-01] MEDS: cefTRIAXone sodium 1 GM VIAL IVPUSH (02:21)
--- NOTE | 2024-08-01 03:06 | PC.NURSE ---
Pt getting discharged, report given to Beulah MARTIN at [facility] awaiting transport.
[2024-08-01 05:00] VITALS: BP 152/93; PULSE 106; RESP 16; TEMP 37.3; O2SAT 97
== END 2024-08-01 05:00 ==
PROVIDERS: Emergency Medicine; Emergency Provider Emergency Medicine; PCP Nurse Practitioner Family
DX: F20.2 Catatonic schizophrenia (principal); R82.90 Unspecified abnormal findings in urine; R11.2 Nausea with vomiting, unspecified; R05.9 Cough, unspecified; R41.82 Altered mental status, unspecified; Z79.899 Other long term (current) drug therapy
CPT/HCPCS: 36415; 70450; 71045; 80048; 80076; 81001; 83690; 83735; 84443; 85025; 86140; 87086; 96360; 96361; 96374; 96375; 99284; 99285; J0696; J2060; J7120